=== PATIENT | male | born 1990 ===

== ENCOUNTER 2017-07-20 11:40 | Emergency (ER) | payer OTHER ==
[2017-07-20 11:41] VITALS: BMI 21.9
[2017-07-20 11:57] VITALS: TEMP 98
[2017-07-20 11:59] VITALS: RESP 16
[2017-07-20] MEDS ORDERED: Sodium Chloride 0.9% 250 ML IV ONE (12:13)
--- NOTE | 2017-07-20 12:35 | C.PDOC ---
History Of Present Illness Patient brought to ED from same day surgery for hypotension (BP 78/38), is scheduled to have removal of B/L nephrostomy tubes (placed 1 month ago at [place]) by Dr. Duarte Hoover. Patient has h/o Down syndrome, autism, HTN, ESRD on HD (T, T, Sa), last dialysis was thursday. Mother states he took his usual BP meds this mornig (Losartan and Carvedilol). She denies behavioral changes, fever, vomiting, diarrhea, cough, runny nose, sore throat, sick contacts. Time Seen by Provider: 07/20/17 12:04 Chief Complaint (Nursing): Medical Clearance History Per: Family (mother ) History/Exam Limitations: other (down syndrome, nonverbal) Current Symptoms Are (Timing): Better Past Medical History Reviewed: Historical Data, Nursing Documentation, Vital Signs Vital Signs: Last Vital Signs Temp 98.0 F 07/20/17 11:52 Pulse 88 07/20/17 18:14 Resp 16 07/20/17 18:14 BP 96/50 L 07/20/17 18:14 Pulse Ox 100 07/26/17 17:30 - Medical History PMH: HTN, Chronic Kidney Disease Other Surgeries: neprhrostromy tubes Family History: States: No Known Family Hx - Social History Hx Tobacco Use: No Hx Alcohol Use: No Hx Substance Use: No - Immunization History Hx Tetanus Toxoid Vaccination: Yes Hx Influenza Vaccination: Yes Hx Pneumococcal Vaccination: No Review Of Systems Except As Marked, All Systems Reviewed And Found Negative. Constitutional: Negative for: Fever, Chills Cardiovascular: Negative for: Chest Pain Respiratory: Negative for: Shortness of Breath Gastrointestinal: Negative for: Nausea, Vomiting, Abdominal Pain, Diarrhea Skin: Negative for: Rash Physical Exam - Physical Exam Appears: Well, Non-toxic, No Acute Distress Eye(s): bilateral: Normal Inspection Oral Mucosa: Moist Cardiovascular: Rhythm Regular Respiratory: Normal Breath Sounds, No Rales, No Rhonchi, No Wheezing Gastrointestinal/Abdominal: Normal Exam, Bowel Sounds, Soft, No Tenderness Back: No CVA Tenderness, Other (B/L nephrostomy tubes ) Neurological/Psych: Other (awake, alert) ED Course And Treatment - Laboratory Results Result Diagrams: 07/20/17 12:33 07/20/17 12:33 O2 Sat by Pulse Oximetry: 100 (RA) Pulse Ox Interpretation: Normal Progress Note: Blood work, UA ordered and reviewed. Patient given small IV NS bolus (250ml). UA (+) for UTI - IV rocephin given. Patient admitted to same day surgery under Dr. Duarte Hoover. 5:50pm- Dr. Hoover states OR was too busy and patient will not be going to OR today. Patient will be discharged home , continue Cipro he is already taking, and mother instructed to return tomorrow to for same day surgery. Reevaluation Time: 17:50 Reassessment Condition: Improved (Patient is awake, alert, appy & active. He has eaten a sandwich, vitals are improved. Mother is comfortable taking him home, and does not want him to be admitted overnight. She understands she should return to ED if he has any concerning symptoms.) Disposition Counseled Patient/Family Regarding: Studies Performed, Diagnosis, Need For Followup - Disposition Referrals: Tacos Hoover MD [Staff Provider] - Disposition: HOME/ ROUTINE Disposition Time: 17:50 Condition: STABLE Additional Instructions: CONTINUE ANTIBIOTICS INSTRUCTED RETURN TO SAME DAY SURGERY OR ER TOMORROW Instructions: Urinary Tract Infections in Adults Forms: [facility] (Burkinan) Print Language: BOTSWANAN - Clinical Impression Clinical Impression: UTI (urinary tract infection), Attention to nephrostomy
[2017-07-20 12:39] LABS: BASO # 0.1 K/uL (0.0-0.2); BASO % 0.9 % (0.0-2.0); EOS # 0.1 K/uL (0.0-0.7); EOS % 1.3 % (0.0-4.0); HEMOGLOBIN 11.2 g/dL (12.0-18.0); LYMPH # 1.8 K/uL (1.0-4.3); LYMPH % 21.1 % (20.0-40.0); MEAN CELL VOLUME 87.4 fL (80.0-94.0); MEAN CORPUSCULAR HEMOGLOBIN 29.2 pg (27.0-31.0); MEAN CORPUSCULAR HGB CONC 33.4 g/dL (33.0-37.0); MONO % 11.8 % (0.0-10.0); NEUT # 5.7 K/uL (1.8-7.0); NEUT % 64.9 % (50.0-75.0); RBC 3.83 Mil/uL (4.40-5.90); RED CELL DISTRIBUTION WIDTH 15.9 % (11.5-14.5); WHITE BLOOD COUNT 8.7 K/uL (4.8-10.8)
[2017-07-20 12:58] LABS: ALB/GLOB RATIO 0.8 (1.0-2.1); ALBUMIN 3.6 g/dL (3.5-5.0); CALCIUM 8.7 mg/dl (8.6-10.4); SQUAMOUS EPITHIAL < 1 /hpf (0-5); URINE AMORPHOUS SEDIMENT RARE /ul (<OCC); URINE BACTERIA MOD (<OCC); URINE BILIRUBIN NEGATIVE (NEGATIVE); URINE BLOOD 1+ (NEGATIVE); URINE CLARITY Hazy (Clear); URINE COLOR Yellow (YELLOW); URINE GLUCOSE (UA) NORMAL (Normal); URINE LEUKOCYTE ESTERASE 3+ Leu/uL (Negative); URINE NITRATE NEGATIVE (NEGATIVE); URINE PROTEIN 2+ mg/dL (NEGATIVE); URINE UROBILINOGEN NORMAL mg/dL (0.2-1.0)
[2017-07-20] MEDS ORDERED: cefTRIAXone IV 1 gm in Dextros 50 ML IV STA (13:18)
--- NOTE | 2017-07-20 14:18 | RAD ---
HISTORY: preop COMPARISON: Chest x-ray portion of obstructive series performed 04/28/16 TECHNIQUE: Chest, one view. FINDINGS: Right-sided dialysis catheter with distal tips at the cavoatrial junction/ right atrium. LUNGS: Right hilar prominence. Please note that chest x-ray has limited sensitivity for the detection of pulmonary masses. PLEURA: No significant pleural effusion identified. No definite pneumothorax . CARDIOVASCULAR: The cardiomediastinal silhouette appears within normal limits of size. OSSEOUS STRUCTURES: No acute osseous abnormality identified. VISUALIZED UPPER ABDOMEN: Unremarkable. OTHER FINDINGS: None. IMPRESSION: Right-sided dialysis catheter with distal tips at the cavoatrial junction/ right atrium. Right hilar prominence.
[2017-07-20] MEDS ORDERED: Sodium Chloride 0.9% 250 ML IV STA (15:51)
[2017-07-20 17:57] VITALS: O2SAT 100
[2017-07-20 18:14] VITALS: BP 96/50; PULSE 88
--- NOTE | 2017-07-21 12:21 | CARD ---
APPROVED REPORT EKG Measurement Heart [id number] <Conclusion> Normal sinus rhythm Normal ECG
== END 2017-07-20 18:31 | disposition home or self-care (01) ==
LOC: C.ER 11:40 → C.SDS 14:01
DX: Z43.6 Encounter for attention to other artificial openings of urinary tract (principal); N39.0 Urinary tract infection, site not specified; Q90.9 Down syndrome, unspecified; I12.0 Hypertensive chronic kidney disease with stage 5 chronic kidney disease or end stage renal disease; N18.6 End stage renal disease; Z99.2 Dependence on renal dialysis
CPT/HCPCS: 71045; 80053; 81001; 82948; 83690; 85025; 86850; 86900; 87040; 87086; 87181; 93005; 96361; 96365; 96366; 99285; J0696; J7040

== ENCOUNTER 2017-08-13 10:18 | Day surgery (SDC) | payer OTHER ==
[2017-08-13 11:42] LABS: CALCIUM 8.7 mg/dl (8.6-10.4)
[2017-08-13] MEDS ORDERED: Iohexol 240 (50 ml) ONE (12:24)
[2017-08-13] MEDS ORDERED: ceFAZolin IV 1 gm in Dextrose 1 GM/50 ML BAG IVPB ONE (12:27)
[2017-08-13] MEDS ORDERED: Propofol 10 mg/ml Inj (20 ML) ONE (12:42)
[2017-08-13] MEDS ORDERED: HYDROmorphone 0.5 mg/0.5 ml ISec IVP PRN (13:28)
[2017-08-13] MEDS ORDERED: Sodium Chloride 0.9% 500 ML IV ONE (13:30)
[2017-08-13 14:28] VITALS: BP 143/90; PULSE 88; RESP 18; TEMP 98; O2SAT 100
--- NOTE | 2017-08-13 17:15 | RAD ---
PROCEDURE: HISTORY: As Above COMPARISON: None TECHNIQUE: Total fluoroscopic time utilized during the procedure: 40.2 seconds. Total dose 0.05016 mGy cm squared FINDINGS: Submitted images from the current procedure: 18 Please refer to the physician's notes performing the procedure. IMPRESSION: Less than 1 hour fluoroscopic time utilized during performance of the procedure
--- NOTE | 2017-08-17 10:41 | RAD ---
HISTORY: Bilateral hydronephrosis, renal failure COMPARISON: No prior. FINDINGS: BOWEL: Normal. No obstruction. No free air. BONES: Normal. OTHER FINDINGS: Bilateral nephrostomy catheters identified. IMPRESSION: No acute findings related to/accounting for the clinical presentation.
--- NOTE | 2017-09-14 09:40 | HP ---
UROLOGY EMERGENCY ADMISSION REASON FOR ADMISSION: Hematuria, voiding dysfunction, renal failure, and the patient presented to the ER with a nonfunctioning system with hematuria. HISTORY OF PRESENT ILLNESS: The patient is a very pleasant gentleman who has been admitted emergently now for the emergency room, he presents. He is 27 years old. He has Down syndrome. His mother takes care of him. He has bilateral hydronephrosis. He has bilateral nephrostomy tubes. He has renal failure. He is on dialysis, and he is here now as an emergency. He presents to the emergency room with hematuria and a nonfunctioning catheter. See the plan listed below. We are going to change the catheter and also insert double J stents as we have been discussing throughout. The mother is extremely involved in his care, and she tries her best but is somewhat not perfectly compliant, presents now with an emergency, and therefore, we are going to insert double J stents with the plan of actually to remove the nephrostomy tubes. The history is as follows. The patient presented initially to [place] ago and then for various reasons socially mostly the patient was then followed up for a while. According to the mother, she had other emergencies that involved her and had gone to [place]. She then briefly went she then presented back to us in a while back. Then she presented back here with renal failure, hydronephrosis, bilateral nephrostomy tube inserted by . Since then we discussed the patient's various urology options. It has not really shown any improvement despite the fact that he had bilateral nephrostomy tubes that are draining well, and he has been getting renal failure and dialysis. With no major improvement but he is here still producing urine and so today, we are going to admit the patient to the emergency and change bilateral stents. With the plan for insertion of bilateral stents with the plan as stated to remove the nephrostomy tube, also we are going to recommend a cystostomy tube instead of a Nick catheter. PAST MEDICAL AND SURGICAL HISTORY: As listed above, other than remarkable from urology standpoint. REVIEW OF SYSTEMS: Listed above. SOCIAL HISTORY: Mother takes care of son with father as well. They do their best but it is a very difficult for them on a social note for care. PHYSICAL EXAMINATION: GENERAL: He appears younger than stated age. He is obviously in the bed, smiling, happy. VITAL SIGNS: His vital signs are noted. Remaining physical exam is otherwise unremarkable. Nephrostomy tubes are noted. DIAGNOSES: Hematuria, renal failure, bilateral nephrostomy tubes, dialysis patient with now nonfunctioning catheter. PLAN: Plan for him is to bring him once he is here as we are going to bring him as an emergency. We are going to bring to the OR, and we will put bilateral double stents in depending on the OR schedule. Further plan for eventually removing the nephrostomy tubes and eventually considering a cystostomy tube. Further plans to follow. Norm Hoover MD
--- NOTE | 2017-09-14 10:01 | OP ---
PROCEDURE DATE: 08/13/2017 UROLOGY EMERGENCY OPERATIVE REPORT PREOPERATIVE DIAGNOSES: Bilateral hydronephrosis, bilateral nephrostomy tubes, hematuria, renal failure, dialysis patient. POSTOPERATIVE DIAGNOSES: Bilateral hydronephrosis, bilateral nephrostomy tubes, hematuria, renal failure, dialysis patient. PROCEDURE: Cystoscopy, bilateral retrograde pyelograms, bilateral double J stent insertion and insertion of Nick catheter via the urethra. SURGEON: Norm Hoover MD COMPLICATIONS: There were no complications. INDICATIONS: See the history and physical for further details; but basically a very pleasant gentleman here for the above procedure. FINDINGS: Normal anterior urethra. No strictures and the verumontanum is minimally visually occlusive, in fact it is fairly open. Bilateral hydronephrosis is identified. Bilateral nephrostomy tubes kidneys. At the termination of the procedure, we had bilateral double J stents. There were no complications. INDICATIONS: See the history and physical for further details. In emergency, the patient presents to the ER with his mother. She does well of caregiving. DESCRIPTION OF PROCEDURE: After obtaining informed consent, the patient was placed on the table. Routine monitors were placed. Time-out was called and we confirmed the patient and positioning. I received consent from the mother. We introduced the cystoscope via urethra. There is no direct urethral valve or abnormality. The scope goes indirectly easily without complication. There was essentially normal urethra. We identified the ureteral orifices. Retrograde pyelograms were performed. We note the presence of bilateral nephrostomy tubes. We note the presence of these abnormally large kidneys. Wires passed up to the kidneys. Bilateral double J stents were inserted. We confirmed our position with fluoroscopic imaging. We inserted a new Nick catheter via the urethra. There were no complications. The patient tolerated the procedure well without complications. ADDENDUM: We are planning to remove the nephrostomy tubes. So far, he is not showing improvement in terms of renal function but he is producing urine output. We also discussed time is risky for infection, etc. I discussed with the mother about my plan eventually and her interest are to have a cystostomy tube. So our next step is to remove the bilateral nephrostomy tubes and also to insert the cystostomy tube at some point. I do want to mention that he is on Plavix, and so therefore, we are certainly not I will have to discuss the indications for his Plavix and what else we can do. Then further plans will follow. Norm Hoover MD
== END 2017-08-13 14:32 | disposition home or self-care (01) ==
LOC: C.SDS 10:18
PROVIDERS: ATTEND Urology
DX: N13.30 Unspecified hydronephrosis (principal); R33.9 Retention of urine, unspecified; Z93.6 Other artificial openings of urinary tract status; R31.9 Hematuria, unspecified; N19 Unspecified kidney failure; Z99.2 Dependence on renal dialysis; Q90.9 Down syndrome, unspecified; Z79.02 Long term (current) use of antithrombotics/antiplatelets
CPT/HCPCS: 36415; 52332; 74018; 80048; C1758; C1769; C2617; J0690; J7040; Q9966

== ENCOUNTER 2017-11-12 20:25 | Inpatient (IN) | payer OTHER ==
[2017-11-12 20:26] VITALS: BMI 20.2
--- NOTE | 2017-11-12 20:38 | C.PDOC ---
History Of Present Illness 27 year old male presents to the ER as a transfer from [facility] for admission. Patient with a Hx of ESRD on dialysis and done syndrome. Patient of Dr. Gonsales. History Per: Family History/Exam Limitations: no limitations Onset/Duration Of Symptoms: Hrs Current Symptoms Are (Timing): Still Present Recent travel outside of the [place]: No Past Medical History Reviewed: Historical Data, Nursing Documentation, Vital Signs Vital Signs: Last Vital Signs Temp 99.6 F 11/12/17 20:39 Pulse 104 H 11/12/17 20:39 Resp 20 11/12/17 20:39 BP 93/55 L 11/12/17 20:39 Pulse Ox 99 11/12/17 20:39 - Medical History PMH: HTN, Chronic Kidney Disease - [facility] (09/09/17) DRAINAGE OF LEFT KIDNEY PELVIS WITH DRAIN DEV, PERC APPROACH (06/04/17) DRAINAGE OF R KIDNEY PELVIS WITH DRAIN DEV, PERC APPROACH (06/04/17) FLUOROSCOPY OF RIGHT JUGULAR VEINS, GUIDANCE (06/04/17) INSERT INFUSION DEV IN R INT JUGULAR VEIN, PERC (06/04/17) INSERTION OF INFUSION DEVICE INTO LOWER VEIN, PERC APPROACH (06/04/17) ULTRASONOGRAPHY OF LEFT LOWER EXTREMITY VEINS, GUIDANCE (06/04/17) ULTRASONOGRAPHY OF RIGHT JUGULAR VEINS, GUIDANCE (06/04/17) Family History: States: Unknown Family Hx - Social History Hx Tobacco Use: No Hx Alcohol Use: No Hx Substance Use: No - Immunization History Hx Tetanus Toxoid Vaccination: Yes Hx Influenza Vaccination: Yes Hx Pneumococcal Vaccination: No Review Of Systems Review Of Systems: ROS cannot be obtained secondary to pt's inabilty to answer questions. Physical Exam - Physical Exam Appears: No Acute Distress Skin: Normal Color, Warm, Dry Head: Atraumatic, Normacephalic Eye(s): bilateral: Normal Inspection Oral Mucosa: Moist Chest: Symmetrical, No Tenderness Cardiovascular: Rhythm Regular Respiratory: Normal Breath Sounds, No Rales, No Rhonchi, No Wheezing Gastrointestinal/Abdominal: Soft, No Tenderness Neurological/Psych: Other (Heavy down's syndrome) Disposition Discussed With DrEnriqueta: Lambert Gonsales Counseled Patient/Family Regarding: Diagnosis - Disposition Disposition: HOSPITALIZED Disposition Time: 21:02 Condition: STABLE - POA Present On Arrival: None - Clinical Impression Clinical Impression: ESRD (end stage renal disease) on dialysis, UTI (urinary tract infection), Down syndrome - Scribe Statement The provider has reviewed the documentation as recorded by the Scribe Mateusz Membreno All medical record entries made by the Scribe were at my direction and personally dictated by me. I have reviewed the chart and agree that the record accurately reflects my personal performance of the history, physical exam, medical decision making, and the department course for this patient. I have also personally directed, reviewed, and agree with the discharge instructions and disposition.
[2017-11-12 22:03] LABS: INR 1.9; PROTHROMBIN TIME 20.3 SECONDS (9.7-12.2)
[2017-11-12] MEDS ORDERED: Vancomycin 1 gm/NS 200 ml 1 GM/200 ML BAG IVPB ONE ×2 (23:00→23:30)
[2017-11-13] MEDS: Multivitamin Vitamin B Complex (Nephro-Vite) Tab PO SCH (09:25)
[2017-11-13] MEDS ORDERED: FERROUS GLUCONATE 240 MG PO SCH (10:00)
--- NOTE | 2017-11-13 12:24 | CP.PCM.CON ---
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 neg for HIT/hypercoag work up Anemia, hx of MR vit D def with secondary hyperparathyroidism chronic systolic CHF with LVEF 35% Plan Plan for dialysis today as missed yesterday and next tomorrow as TTS. continue with nephrovite 1 tab/day continue with low dose coreg, not on RAAS chaitanya due to low BP urology and ID consult pt on systemic a/c with oral coumadin last Hb 13 hence not on [facility] outpt PTH and Phos under control Dose meds/antibiotics for dialysis status. Avoid fleets enema/magnesium based laxatives. Avoid nephrotoxins/NSAIDs Glycemic control Further work up/management as per primary team. Thanks for allowing me to participate in care of your patient. Will follow patient with you. Please call if any Qs. had d/w mother and team Dr Phillip Dixon Office: [phone] CC: unable to obtain reason for consult; ESRD HPI: Pt is a 27 M with MR and chronic obstructive uropathy and progressive CKD as a result of obstruction, now ESRD on HD (TTS) @ [place] unit, CHF, DVT came with cloudy urine output from nephrostomy tube along with feeling of sickness, nausea/vomitting and feeling cold and being treated for UTI renal consult for ESRD management ROS: pt unable to provide due to MR. overnight events noted. Physical Examination: seen on HD General Appearance: Comfortable, in no acute respiratory distress Vitals reviewed and noted as below Head; Atraumatic, normocephalic ENT: no ulcers no thrush. Tongue is midline. Oropharynx: no rash or ulcers. EYES: Pupils are equal, round and reactive to light accommodation. Eye muscles and extraocular movement intact. Sclera is anicteric. Neck; supple no lymphadenopathy, no thyromegaly or bruit Lungs: Normal respiratory rate/effort. Breath sounds bilateral equal and clear Heart: Normal rate. s1s2 normal. No rub or gallop. Extremities: no edema. No varicose veins Neurological: Patient is alert, awake, has severe MR, non communicative, non verbal Skin: Warm and dry. Normal turgor. No rash. Palpitation: Normal elasticity for age Abdomen: unable as pt not allowing Psych: no insight MSK: no joint tenderness or swelling. Digits and nails normal, no deformity : has nephrostomy tubes draining urine access: permacath Labs/imaging reviewed. Past medical history, past surgical history, family history, social history, allergy reviewed and noted as below Family hx: no hx of CKD. Rest non-contributory Past Patient History - Infectious Disease Hx of Infectious Diseases: None - Past Medical History & Family History Past Medical History?: Yes - Past Social History Smoking Status: Never Smoked - CARDIAC Hx Cardiac Disorders: Yes Hx Hypertension: Yes - PULMONARY Hx Respiratory Disorders: No - NEUROLOGICAL Hx 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) - HEENT Hx HEENT Problems: No - RENAL Hx Chronic Kidney Disease: Yes Date of Last Dialysis Treatment: 11/10/17 - ENDOCRINE/METABOLIC Hx Endocrine Disorders: No - HEMATOLOGICAL/ONCOLOGICAL Hx Blood Disorders: No - INTEGUMENTARY Hx Dermatological Problems: Yes Hx Eczema: Yes - MUSCULOSKELETAL/RHEUMATOLOGICAL Hx Musculoskeletal Disorders: No Hx Falls: Yes - GASTROINTESTINAL Hx Gastrointestinal Disorders: No - GENITOURINARY/GYNECOLOGICAL Hx Genitourinary Disorders: Yes Other/Comment: REYES - PSYCHIATRIC Hx Psychophysiologic Disorder: No Hx Substance Use: No - SURGICAL HISTORY Hx Surgeries: Yes Hx Vascular Access Device: Yes Other/Comment: CYSTOSCOPY. NEPHROSTOMY TUBES, ROWDY. - ANESTHESIA Hx Anesthesia: Yes Hx Anesthesia Reactions: No Hx Malignant Hyperthermia: No Meds Allergies/Adverse Reactions: Allergies Allergy/AdvReac Type Severity Reaction Status Date / Time No Known Allergies Allergy Verified 11/12/17 20:46 - Medications Medications: Current Medications Carvedilol (Coreg) 3.125 mg PO HS [place] Famotidine (Pepcid) 20 mg PO 0730 [facility] Ferrous Gluconate (Fergon) 324 mg PO TID [facility] Last Admin: 11/13/17 09:25 Dose: 324 mg Vitamin B Complex/Vit C/Folic Acid (Nephro-Robel) 1 tab PO DAILY [place] Last Admin: 11/13/17 09:25 Dose: 1 tab Warfarin Sodium (Coumadin) 4 mg PO 1800 ONE Stop: 11/13/17 18:01 Results - Vital Signs Recent Vital Signs: Last Vital Signs Temp 98 F 11/13/17 10:00 Pulse 67 11/13/17 11:00 Resp 16 11/13/17 11:00 BP 103/60 11/13/17 11:00 Pulse Ox 98 11/13/17 11:00 - Labs Labs: Laboratory Results - last 24 hr 11/12/17 11/13/17 21:50 07:45 PT 20.3 H INR 1.9 APTT 40 H
[2017-11-13 13:07] LABS: BASO # 0.1 K/uL (0.0-0.2); BASO % 0.9 % (0.0-2.0); EOS # 0.1 K/uL (0.0-0.7); EOS % 0.9 % (0.0-4.0); HEMOGLOBIN 12.3 g/dL (12.0-18.0); LYMPH # 1.5 K/uL (1.0-4.3); LYMPH % 19.4 % (20.0-40.0); MEAN CORPUSCULAR HEMOGLOBIN 30.8 pg (27.0-31.0); MEAN CORPUSCULAR HGB CONC 33.9 g/dL (33.0-37.0); MEAN PLATELET VOLUME 7.7 fL (7.2-11.7); MONO # 0.8 K/uL (0.0-0.8); MONO % 10.5 % (0.0-10.0); NEUT # 5.2 K/uL (1.8-7.0); NEUT % 68.3 % (50.0-75.0); NRBC % 0.1 % (0.0-2.0); RBC 3.97 Mil/uL (4.40-5.90); RED CELL DISTRIBUTION WIDTH 16.5 % (11.5-14.5); WHITE BLOOD COUNT 7.6 K/uL (4.8-10.8)
[2017-11-13 13:10] LABS: MEAN CELL VOLUME 90.9 fL (80.0-94.0)
[2017-11-13 13:28] LABS: ALB/GLOB RATIO 0.9 (1.0-2.1); ALBUMIN 4.2 g/dL (3.5-5.0); CALCIUM 8.4 mg/dl (8.6-10.4)
--- NOTE | 2017-11-13 16:10 | HP ---
HISTORY OF PRESENT ILLNESS: I saw him on 11/12/2017 at [facility] emergency room talking to the mother, but he needs dialysis. They were having a problem with dialysis at [facility], so he was transferred to [facility], where I saw him this morning, now he is being admitted to [facility]. He is a 27-year-old male, who has history of Down syndrome, who has UTIs, chronic Nick, end-stage renal disease on dialysis. He had vomiting, decreased appetite, the Nick bag was very cloudy, and he has done , so the mother brought him to [facility] where he usually goes, now he is transferred to [facility]. PAST MEDICAL HISTORY: End-stage renal disease on dialysis, Down syndrome, obstructive uropathy, chronic indwelling Nick, he has got hypertension, autism, nonverbal, he has dialysis Thursday, and Thursday, bilateral nephrostomy tubes, he has got eczema, cystoscopy. FAMILY HISTORY: Unknown family history. SOCIAL HISTORY: Never smoked. No alcohol, no drugs. ALLERGIES: NO KNOWN DRUG ALLERGIES. MEDICATIONS: He takes Coreg, Coumadin, Nephro-Robel and vitamins. REVIEW OF SYSTEMS: Presently, he is sitting up in bed with his mother in the room. He is smiling. He has no apparent distress at this time. He has Down syndrome. He is vomiting. Appetite changes. No acute changes in vision or hearing states his mother. No apparent chest pain or shortness of breath. He sits. No apparent rashes. He is alert and looking at me. PHYSICAL EXAMINATION: VITAL SIGNS: He has 98.8 temperature, 86 pulse, 18 respiratory rate, 105/55 blood pressure, and 100%O2 sat on room air. HEENT: His head is atraumatic and normocephalic. Extraocular muscles are intact. Pupils equal and reactive to light. Throat is moist. NECK: Supple. Thyroid midline. No palpable or appreciable lymphadenopathy. HEART: Regular rate. Normal S1 and S2. LUNGS: Decreased breath sounds bilaterally. Poor inspiration, but clear to auscultation. ABDOMEN: Soft and nontender. Positive bowel sounds. Bilateral nephrostomy tubes. CYLINDER INSPECTOR: GCS is 15. Cranial nerves II through XII are grossly intact. He is alert x1 maybe. SKIN: For the most part is normal. I do not see any rashes or ulcers appreciated. LABORATORY DATA: He had a lots of tests done. He has 1.9 INR. The CBC and chemistry is pending. All the other tests are pending. He is currently on Coreg, Coumadin, Nephro-Robel, Pepcid. He has had Rocephin. He has had vancomycin. He has lab pending this morning. ASSESSMENT AND PLAN: He has consults with his urologist, Dr. Hoover, his kidney doctor, Dr. Dixon and infectious disease, Dr. Ku. We will check his labs. When I get the okay, he could be discharged home. We will change it to tablets and discharge him. Will continue with the IV antibiotics at dialysis. Discussed with the mother at length and he is admitted to the [facility], [facility] with urinary tract infection, end-stage renal disease and obstructive nephropathy. Lambert Gonsales DO MTDD
--- NOTE | 2017-11-13 18:06 | PCM.URO ---
Urology Progress Note - Objective Lab Studies: Reviewed (gu dx; renal failure, hydro, retention, gu plans : smith to [place]) Lab Results Last 24 Hours: Laboratory Results - last 24 hr 11/12/17 11/13/17 11/13/17 21:50 07:45 12:56 WBC RBC Hgb Hct MCV MCH MCHC RDW Plt Count MPV Neut % (Auto) Lymph % (Auto) [place] % (Auto) Eos % (Auto) Baso % (Auto) Neut # (Auto) Lymph # (Auto) [place] # (Auto) Eos # (Auto) Baso # (Auto) PT 20.3 H INR 1.9 APTT 40 H Sodium 137 Potassium 3.5 L Chloride 94 L Carbon Dioxide 30 Anion Gap 17 BUN 34 H Creatinine 3.1 H Est GFR ( Amer) 30 Est GFR (Non-Af Amer) 25 Random Glucose 83 Calcium 8.4 L Total Bilirubin 0.5 AST 38 ALT 53 Alkaline Phosphatase 63 Total Protein 8.7 H Albumin 4.2 Globulin 4.5 H Albumin/Globulin Ratio 0.9 L 11/13/17 12:56 WBC 7.6 RBC 3.97 L Hgb 12.3 Hct 36.1 MCV 90.9 D MCH 30.8 MCHC 33.9 RDW 16.5 H Plt Count 230 MPV 7.7 Neut % (Auto) 68.3 Lymph % (Auto) 19.4 L [place] % (Auto) 10.5 H Eos % (Auto) 0.9 Baso % (Auto) 0.9 Neut # (Auto) 5.2 Lymph # (Auto) 1.5 [place] # (Auto) 0.8 Eos # (Auto) 0.1 Baso # (Auto) 0.1 PT INR APTT Sodium Potassium Chloride Carbon Dioxide Anion Gap BUN Creatinine Est GFR ( Amer) Est GFR (Non-Af Amer) Random Glucose Calcium Total Bilirubin AST ALT Alkaline Phosphatase Total Protein Albumin Globulin Albumin/Globulin Ratio Intake & Output: Intake & Output 11/12/17 11/13/17 11/13/17 18:59 06:59 18:59 Intake Total 600 Output Total 800 Balance -200 Weight 104 lb 42 lb 9.6 oz Intake: Intake, IV Amount 200 Right Forearm 200 Oral 400 Output: Urine 800 Urethral (Smith) 800 Other: Voiding Method Indwelling Catheter Vital Signs: Vital Signs - 24 hr 11/12/17 11/12/17 11/12/17 20:39 22:03 22:31 Temperature 99.6 F 98.6 F 98 F Pulse Rate 104 H 99 H 103 H Pulse Rate [ Apical] Respiratory 20 18 20 Rate Blood Pressure 93/55 L 106/62 92/64 L Blood Pressure [Right Arm] O2 Sat by Pulse 99 96 97 Oximetry 11/13/17 11/13/17 11/13/17 00:00 00:51 07:46 Temperature 97.1 F L 97.6 F Pulse Rate 74 88 Pulse Rate [ Apical] Respiratory 20 20 20 Rate Blood Pressure 91/61 L 97/60 L Blood Pressure [Right Arm] O2 Sat by Pulse 99 99 98 Oximetry 11/13/17 11/13/17 11/13/17 10:00 10:20 10:40 Temperature 97 F L Pulse Rate 68 Pulse Rate [ 68 70 80 Apical] Respiratory 15 16 16 Rate Blood Pressure 117/90 Blood Pressure 117/90 84/54 L 112/67 [Right Arm] O2 Sat by Pulse 99 99 99 Oximetry 11/13/17 11/13/17 11/13/17 11:00 11:30 12:00 Temperature Pulse Rate Pulse Rate [ 67 72 73 Apical] Respiratory 16 16 15 Rate Blood Pressure Blood Pressure 103/60 113/67 111/52 L [Right Arm] O2 Sat by Pulse 98 98 98 Oximetry 11/13/17 11/13/17 11/13/17 12:30 13:00 16:07 Temperature 97.8 F Pulse Rate 75 Pulse Rate [ 77 102 H Apical] Respiratory 15 15 20 Rate Blood Pressure 88/47 L Blood Pressure 119/86 121/83 [Right Arm] O2 Sat by Pulse 98 98 98 Oximetry
--- NOTE | 2017-11-13 18:32 | CP.PCM.CON ---
History of Present Illness - History of Present Illness History of Present Illness: 27 year old male presents to the ER as a transfer from [place] for admission. Patient with a Hx of ESRD on dialysis and done syndrome. Patient of Dr. Gonsales. 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 neg for HIT/hypercoag work up Anemia, hx of MR vit D def with secondary hyperparathyroidism chronic systolic CHF with LVEF 35% - Medical History PMH: HTN, Chronic Kidney Disease, Downs syndrome - [facility] Procedures (09/09/17) DRAINAGE OF LEFT KIDNEY PELVIS WITH DRAIN DEV, PERC APPROACH (06/04/17) DRAINAGE OF R KIDNEY PELVIS WITH DRAIN DEV, PERC APPROACH (06/04/17) FLUOROSCOPY OF RIGHT JUGULAR VEINS, GUIDANCE (06/04/17) INSERT INFUSION DEV IN R INT JUGULAR VEIN, PERC (06/04/17) INSERTION OF INFUSION DEVICE INTO LOWER VEIN, PERC APPROACH (06/04/17) ULTRASONOGRAPHY OF LEFT LOWER EXTREMITY VEINS, GUIDANCE (06/04/17) ULTRASONOGRAPHY OF RIGHT JUGULAR VEINS, GUIDANCE (06/04/17) Review of Systems - Review of Systems Systems not reviewed;Unavailable: Altered Mental Status All systems: reviewed and no additional remarkable complaints except - Constitutional Constitutional: As Per HPI - EENT Eyes: absent: As Per HPI, Blind Spots, Blurred Vision, Change in Vision, Decreased Night Vision, Diplopia, Discharge, Dry Eye, Exophthalmos, Floaters, Irritation, Itchy Eyes, Loss of Peripheral Vision, Pain, Photophobia, Requires Corrective Lenses, Sees Flashes, Spots in Vision, Tunnel Vision, Other Visual Disturbances, Loss of Vision, Other Ears: absent: As Per HPI, Decreased Hearing, Ear Discharge, Ear Pain, Tinnitus, Abnormal Hearing, Disequilibrium, Dizziness, Other Nose/Mouth/Throat: absent: As Per HPI, Epistaxis, Nasal Congestion, Nasal Discharge, Nasal Obstruction, Nasal Trauma, Nose Pain, Post Nasal Drip, Sinus Pain, Sinus Pressure, Bleeding Gums, Change in Voice, Dental Pain, Dry Mouth, Dysphagia, Halitosis, Hoarsness, Lip Swelling, Mouth Lesions, Mouth Pain, Odynophagia, Sore Throat, Throat Swelling, Tongue Swelling, Facial Pain, Neck Pain, Neck Mass, Other - Cardiovascular Cardiovascular: absent: As Per HPI, Acrocyanosis, Chest Pain, Chest Pain at Rest , Chest Pain with Activity, Claudication, Diaphoresis, Dyspnea, Dyspnea on Exertion, Edema, Irregular Heart Rhythm, Pain Radiating to Arm/Neck/Jaw, Leg Edema, Leg Ulcers, Lightheadedness, Orthopnea, Palpitations, Paroxysmal Nocturnal Dyspnea, Pedal Edema, Radiating Pain, Rapid Heart Rate, Slow Heart Rate, Syncope, Other - Respiratory Respiratory: absent: As Per HPI, Cough, Dyspnea, Hemoptysis, Dyspnea on Exertion , Wheezing, Snoring, Stridor, Pain on Inspiration, Chest Congestion, Excessive Mucous Production, Change in Mucous Color, Pain with Coughing, Other - Gastrointestinal Gastrointestinal: absent: As Per HPI, Abdominal Pain, Belching, Bloating, Change in Bowel Habits, Change in Stool Character, Coffee Ground Emesis, Constipation, Cramping, Diarrhea, Dyspepsia, Dysphagia, Early Satiety, Excessive Flatus, Fecal Incontinence, Heartburn, Hematemesis, Hematochezia, Loose Stools, Melena, Nausea, Odynophagia, Temesmus, Vomiting, Other - Genitourinary Genitourinary: As Per HPI - Musculoskeletal Musculoskeletal: absent: As Per HPI, Abnormal Gait, Arthralgias, Atrophy, Back Pain, Deformity, Joint Swelling, Limited Range of Motion, Loss of Height, Muscle Cramps, Muscle Weakness, Myalgias, Neck Pain, Numbness, Radiating Pain into Limb, Stiffness, Tingling, Other - Integumentary Integumentary: absent: As Per HPI, Acne, Alopecia, Bleeding Lesions, Change in Hair, Change in Nails, Change in Pigmentation, Changing Lesions, Dry Skin, Erythema, Furuncle, Hirsutism, Lesions, New Lesions, Non-Healing Lesions, Photosensitivity, Pruritus, Rash, Skin Pain, Skin Ulcer, Sores, Striae, Swelling , Unusual Bruising, Wounds, Jaundice, Other - Neurological Neurological: absent: As Per HPI, Abnormal Gait, Abnormal Hearing, Abnormal Movements, Abnormal Speech, Behavioral Changes, Burning Sensations, Confusion, Convulsions, Disequilibrium, Dizziness, Numbness, Focal Weakness, Frequent Falls , Headaches, Lack of Coordination, Loss of Vision, Memory Loss, Paresthesias, Radicular Pain, Restless Legs, Sensory Deficit, Syncope, Tingling, Tremor, Vertigo, Weakness, Other Visual Disturbances, Other - Psychiatric Psychiatric: absent: As Per HPI, Abnormal Sleep Pattern, Anhedonia, Anxiety, Auditory Hallucinations, Behavioral Changes, Change in Appetite, Change in Libido, Confusion, Depression, Difficulty Concentrating, Hallucinations, Homicidal Ideation, Hopelessness, Irritability, Memory Loss, Mood Swings, Panic Attacks, Paranoia, Suicidal Ideation, Visual Hallucinations, Tactile Hallucinations, Other - Endocrine Endocrine: absent: As Per HPI, Change in Body Appearance, Change in Libido, Cold Intolorance, Deepening of Voice, Excessive Sweating, Fatigue, Flushing, Heat Intolorance, Increase in Ring/Shoe/Hat Size, Palpitations, Polydipsia, Polyphagia, Polyuria, Other - Hematologic/Lymphatic Hematologic: absent: As Per HPI, Easy Bleeding, Easy Bruising, Lymphadenopathy, Other Past Patient History - Infectious Disease Hx of Infectious Diseases: None - Past Medical History & Family History Past Medical History?: Yes - Past Social History Smoking Status: Never Smoked - CARDIAC Hx Cardiac Disorders: Yes Hx Hypertension: Yes - PULMONARY Hx Respiratory Disorders: No - NEUROLOGICAL Hx 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) - HEENT Hx HEENT Problems: No - RENAL Hx Chronic Kidney Disease: Yes Date of Last Dialysis Treatment: 11/10/17 - ENDOCRINE/METABOLIC Hx Endocrine Disorders: No - HEMATOLOGICAL/ONCOLOGICAL Hx Blood Disorders: No - INTEGUMENTARY Hx Dermatological Problems: Yes Hx Eczema: Yes - MUSCULOSKELETAL/RHEUMATOLOGICAL Hx Musculoskeletal Disorders: No Hx Falls: Yes - GASTROINTESTINAL Hx Gastrointestinal Disorders: No - GENITOURINARY/GYNECOLOGICAL Hx Genitourinary Disorders: Yes Other/Comment: REYES - PSYCHIATRIC Hx Psychophysiologic Disorder: No Hx Substance Use: No - SURGICAL HISTORY Hx Surgeries: Yes Hx Vascular Access Device: Yes Other/Comment: CYSTOSCOPY. NEPHROSTOMY TUBES, ROWDY. - ANESTHESIA Hx Anesthesia: Yes Hx Anesthesia Reactions: No Hx Malignant Hyperthermia: No Meds Allergies/Adverse Reactions: Allergies Allergy/AdvReac Type Severity Reaction Status Date / Time No Known Allergies Allergy Verified 11/12/17 20:46 - Medications Medications: Current Medications Carvedilol (Coreg) 3.125 mg PO HS [place] Famotidine (Pepcid) 20 mg PO 0730 [facility] Ferrous Gluconate (Fergon) 324 mg PO TID [facility] Last Admin: 11/13/17 17:10 Dose: 324 mg Vitamin B Complex/Vit C/Folic Acid (Nephro-Robel) 1 tab PO DAILY [place] Last Admin: 11/13/17 09:25 Dose: 1 tab Physical Exam - Constitutional Appears: Non-toxic, Chronically Ill - Head Exam Head Exam: NORMOCEPHALIC - Eye Exam Eye Exam: PERRL - ENT Exam ENT Exam: Mucous Membranes Dry, Normal External Ear Exam - Neck Exam Neck exam: Negative for: Lymphadenopathy - Respiratory Exam Respiratory Exam: Decreased Breath Sounds - Cardiovascular Exam Cardiovascular Exam: REGULAR RHYTHM, +S1, +S2 - GI/Abdominal Exam GI & Abdominal Exam: Diminished Bowel Sounds, Soft. absent: Tenderness - Rectal Exam Rectal Exam: Deferred - Exam Exam: NORMAL INSPECTION - Extremities Exam Extremities exam: Negative for: pedal edema - Back Exam Back exam: absent: CVA tenderness (L), CVA tenderness (R), paraspinal tenderness - Neurological Exam Neurological exam: Alert, CN II-XII Intact, Oriented x3, Reflexes Normal - Psychiatric Exam Psychiatric exam: Normal Mood Results - Vital Signs Recent Vital Signs: Last Vital Signs Temp 97.8 F 11/13/17 16:07 Pulse 75 11/13/17 16:07 Resp 20 11/13/17 16:07 BP 88/47 L 11/13/17 16:07 Pulse Ox 98 11/13/17 16:07 - Labs Result Diagrams: 11/13/17 12:56 11/13/17 12:56 Labs: Laboratory Results - last 24 hr 11/12/17 11/13/17 11/13/17 21:50 07:45 12:56 WBC RBC Hgb Hct MCV MCH MCHC RDW Plt Count MPV Neut % (Auto) Lymph % (Auto) [place] % (Auto) Eos % (Auto) Baso % (Auto) Neut # (Auto) Lymph # (Auto) [place] # (Auto) Eos # (Auto) Baso # (Auto) PT 20.3 H INR 1.9 APTT 40 H Sodium 137 Potassium 3.5 L Chloride 94 L Carbon Dioxide 30 Anion Gap 17 BUN 34 H Creatinine 3.1 H Est GFR ( Amer) 30 Est GFR (Non-Af Amer) 25 Random Glucose 83 Calcium 8.4 L Total Bilirubin 0.5 AST 38 ALT 53 Alkaline Phosphatase 63 Total Protein 8.7 H Albumin 4.2 Globulin 4.5 H Albumin/Globulin Ratio 0.9 L 11/13/17 12:56 WBC 7.6 RBC 3.97 L Hgb 12.3 Hct 36.1 MCV 90.9 D MCH 30.8 MCHC 33.9 RDW 16.5 H Plt Count 230 MPV 7.7 Neut % (Auto) 68.3 Lymph % (Auto) 19.4 L [place] % (Auto) 10.5 H Eos % (Auto) 0.9 Baso % (Auto) 0.9 Neut # (Auto) 5.2 Lymph # (Auto) 1.5 [place] # (Auto) 0.8 Eos # (Auto) 0.1 Baso # (Auto) 0.1 PT INR APTT Sodium Potassium Chloride Carbon Dioxide Anion Gap BUN Creatinine Est GFR ( Amer) Est GFR (Non-Af Amer) Random Glucose Calcium Total Bilirubin AST ALT Alkaline Phosphatase Total Protein Albumin Globulin Albumin/Globulin Ratio Assessment & Plan (1) Down syndrome Status: Acute (2) UTI (urinary tract infection) Status: Acute (3) Acute kidney injury Status: Acute (4) Attention to nephrostomy Status: Acute - Assessment and Plan (Free Text) Assessment: await cultures cont iv antibiotics
[2017-11-13] MEDS: Cefepime IV 1 gm in Dextrose 1 GM/50 ML BAG IVPB SCH (21:12)
[2017-11-14 07:17] LABS: INR 2.2; PROTHROMBIN TIME 23.8 SECONDS (9.7-12.2)
[2017-11-14 07:19] LABS: HEMOGLOBIN 11.3 g/dL (12.0-18.0); MEAN CELL VOLUME 91.1 fL (80.0-94.0); MEAN CORPUSCULAR HEMOGLOBIN 31.2 pg (27.0-31.0); MEAN CORPUSCULAR HGB CONC 34.3 g/dL (33.0-37.0); MEAN PLATELET VOLUME 7.4 fL (7.2-11.7); RBC 3.63 Mil/uL (4.40-5.90); RED CELL DISTRIBUTION WIDTH 16.5 % (11.5-14.5); WHITE BLOOD COUNT 7.3 K/uL (4.8-10.8)
[2017-11-14 07:46] LABS: ALB/GLOB RATIO 0.9 (1.0-2.1); ALBUMIN 3.8 g/dL (3.5-5.0); CALCIUM 8.1 mg/dl (8.6-10.4)
--- NOTE | 2017-11-14 09:12 | CP.PCM.PN ---
Subjective - Date & Time of Evaluation Date of Evaluation: 11/14/17 Time of Evaluation: 09:12 - Subjective Subjective: Nephrology Consultation Note: Assessment: stable UTI ESRD on HD via permacath (TTS) hx of b/l massive hydronephrosis and loss of renal cortex s/p b/l nephrostomy left femoral DVT. neg for HIT/hypercoag work up Anemia, hx of MR vit D def with secondary hyperparathyroidism chronic systolic CHF with LVEF 35% Plan Plan for dialysis today as TTS. continue with nephrovite 1 tab/day continue with low dose coreg, not on RAAS chaitanya due to low BP urology and ID consult pt on systemic a/c with oral coumadin last Hb 13 hence not on WILBER outpt PTH and Phos under control Dose meds/antibiotics for dialysis status. Avoid fleets enema/magnesium based laxatives. Avoid nephrotoxins/NSAIDs Glycemic control Further work up/management as per primary team. Thanks for allowing me to participate in care of your patient. Will follow patient with you. Please call if any Qs. 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 overnight events noted. per mother, pt is doing better, happy and eating well Physical Examination: General Appearance: Comfortable, in no acute respiratory distress Vitals reviewed and noted as below Head; Atraumatic, normocephalic ENT: no ulcers no thrush. Tongue is midline. Oropharynx: no rash or ulcers. EYES: Pupils are equal, round and reactive to light accommodation. Eye muscles and extraocular movement intact. Sclera is anicteric. Neck; supple no lymphadenopathy, no thyromegaly or bruit Lungs: Normal respiratory rate/effort. Breath sounds bilateral equal and clear Heart: Normal rate. s1s2 normal. No rub or gallop. Extremities: no edema. No varicose veins Neurological: Patient is alert, awake, has severe MR, non communicative, non verbal Skin: Warm and dry. Normal turgor. No rash. Palpitation: Normal elasticity for age Abdomen: unable as pt not allowing Psych: no insight MSK: no joint tenderness or swelling. Digits and nails normal, no deformity : has nephrostomy tubes draining urine access: permacath Labs/imaging reviewed. Past medical history, past surgical history, family history, social history, allergy reviewed and noted as below Family hx: no hx of CKD. Rest non-contributory Objective - Vital Signs/Intake and Output Vital Signs (last 24 hours): Temp Pulse Resp BP Pulse Ox 97.4 F L 73 18 110/58 L 100 11/14/17 07:09 11/14/17 07:09 11/14/17 07:09 11/14/17 07:09 11/14/17 07:09 Intake and Output: 11/14/17 11/14/17 06:59 18:59 Intake Total 250 Balance 250 - Medications Medications: Current Medications Carvedilol (Coreg) 3.125 mg PO HS [facility] Last Admin: 11/13/17 21:13 Dose: 3.125 mg Famotidine (Pepcid) 20 mg PO 0730 [facility] Last Admin: 11/14/17 07:56 Dose: 20 mg Ferrous Gluconate (Fergon) 324 mg PO TID [facility] Last Admin: 11/13/17 17:10 Dose: 324 mg Cefepime HCl (Maxipime Iv 1 Gm Premix) 1 gm in 50 mls @ 100 mls/hr IVPB Q24H [place] PRN Reason: Protocol Last Admin: 11/13/17 21:12 Dose: 100 mls/hr Vitamin B Complex/Vit C/Folic Acid (Nephro-Robel) 1 tab PO DAILY [facility] Last Admin: 11/13/17 09:25 Dose: 1 tab Warfarin Sodium (Coumadin) 4 mg PO 1800 [facility] Stop: 11/14/17 18:01 - Labs Labs: 11/14/17 07:07 11/14/17 07:07 PT 23.8 SECONDS (9.7-12.2) H 11/14/17 07:07 INR 2.2 11/14/17 07:07 APTT 40 SECONDS (21-34) H 11/13/17 07:45
[2017-11-14] MEDS: Multivitamin Vitamin B Complex (Nephro-Vite) Tab PO SCH (10:03)
--- NOTE | 2017-11-14 13:21 | PN ---
DATE: 11/14/2017 SUBJECTIVE: I saw him sitting up in bed. He is looking at me. He is nonverbal. His mother is in the chair next to the bed. He is very comfortable. He had dialysis yesterday. MEDICATIONS: He is on cefepime, Coreg, Coumadin, Fergon, Nephro-Robel, Pepcid, IV vancomycin. PHYSICAL EXAMINATION: VITAL SIGNS: Temp 97.4, 73 pulse, 110/58 blood pressure, his blood pressure goes as low as 86/44 that was after dialysis. I am going to take him off fluid, but he is better now, 18 respiratory rate, 100% O2 sat on room air. GENERAL: Clinically to look at him he is very calm, no acute complaints. HEENT: His head is atraumatic, normocephalic. HEART: Regular rate. LUNGS: Clear to auscultation. ABDOMEN: Soft. EXTREMITIES: No edema. NEUROLOGIC: He is nonverbal, smiled at me him. LABORATORY DATA: He has 135 sodium, potassium is 3.7, BUN is 56, creatinine 5.5. I understand the next dialysis is Thursday, he might need it earlier though. GFR is down to 13, sugar is 93, calcium is 8.1, total bili is 0.5, AST is 43, ALT is 54, alk phos 56, total protein 7.8. White count 7.3, hemoglobin 11.3, hematocrit 33, platelets 204, INR is good at 2.2. ASSESSMENT AND PLAN: We will continue with the same, Coumadin 4 mg a day, which is now not on JUL for whatever reason. He is here for an infection and we will check his labs tomorrow. Discussed with the at length. I also discussed this with the renal doctor. As soon as we know what antibiotic he will be on for a period of time, we would probably switch him to home antibiotics on outpatient dialysis. Also Urology is supposed to change his tubes, catheters and hopefully he will do very well. Lambert Gonsales DO [facility]
[2017-11-14] MEDS: Cefepime IV 1 gm in Dextrose 1 GM/50 ML BAG IVPB SCH (19:27)
[2017-11-15 07:49] LABS: HEMOGLOBIN 11.4 g/dL (12.0-18.0); MEAN CELL VOLUME 91.4 fL (80.0-94.0); MEAN CORPUSCULAR HEMOGLOBIN 30.9 pg (27.0-31.0); MEAN CORPUSCULAR HGB CONC 33.8 g/dL (33.0-37.0); MEAN PLATELET VOLUME 7.3 fL (7.2-11.7); RBC 3.7 Mil/uL (4.40-5.90); RED CELL DISTRIBUTION WIDTH 16.5 % (11.5-14.5); WHITE BLOOD COUNT 5.2 K/uL (4.8-10.8)
[2017-11-15 07:51] LABS: INR 1.8; PROTHROMBIN TIME 20.1 SECONDS (9.7-12.2)
[2017-11-15 08:11] LABS: ALBUMIN 3.8 g/dL (3.5-5.0)
[2017-11-15] MEDS: Multivitamin Vitamin B Complex (Nephro-Vite) Tab PO SCH (09:23)
--- NOTE | 2017-11-15 14:27 | CP.PCM.PN ---
Subjective - Date & Time of Evaluation Date of Evaluation: 11/15/17 Time of Evaluation: 14:26 - Subjective Subjective: Nephrology Consultation Note: Assessment: stable UTI ESRD on HD via permacath (TTS) hx of b/l massive hydronephrosis and loss of renal cortex s/p b/l nephrostomy left femoral DVT. neg for HIT/hypercoag work up Anemia, hx of MR vit D def with secondary hyperparathyroidism chronic systolic CHF with LVEF 35% Plan Plan for dialysis thursday as TTS. continue with nephrovite 1 tab/day continue with low dose coreg, not on RAAS chaitanya due to low BP urology and ID consult pt on systemic a/c with oral coumadin last Hb 13 hence not on WILBER outpt PTH and Phos under control Dose meds/antibiotics for dialysis status. Avoid fleets enema/magnesium based laxatives. Avoid nephrotoxins/NSAIDs Glycemic control Further work up/management as per primary team. Thanks for allowing me to participate in care of your patient. Will follow patient with you. Please call if any Qs. 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 overnight events noted. per mother, pt is doing better, happy and eating well Physical Examination: General Appearance: Comfortable, in no acute respiratory distress Vitals reviewed and noted as below Head; Atraumatic, normocephalic ENT: no ulcers no thrush. Tongue is midline. Oropharynx: no rash or ulcers. EYES: Pupils are equal, round and reactive to light accommodation. Eye muscles and extraocular movement intact. Sclera is anicteric. Neck; supple no lymphadenopathy, no thyromegaly or bruit Lungs: Normal respiratory rate/effort. Breath sounds bilateral equal and clear Heart: Normal rate. s1s2 normal. No rub or gallop. Extremities: no edema. No varicose veins Neurological: Patient is alert, awake, has severe MR, non communicative, non verbal Skin: Warm and dry. Normal turgor. No rash. Palpitation: Normal elasticity for age Abdomen: unable as pt not allowing Psych: no insight MSK: no joint tenderness or swelling. Digits and nails normal, no deformity : has nephrostomy tubes draining urine access: permacath Labs/imaging reviewed. Past medical history, past surgical history, family history, social history, allergy reviewed and noted as below Family hx: no hx of CKD. Rest non-contributory Objective - Vital Signs/Intake and Output Vital Signs (last 24 hours): Temp Pulse Resp BP Pulse Ox 97.6 F 90 18 98/64 L 96 11/15/17 08:00 11/15/17 08:00 11/15/17 08:00 11/15/17 08:00 11/15/17 08:00 Intake and Output: 11/15/17 11/15/17 06:59 18:59 Intake Total 420 Output Total 350 Balance 70 - Medications Medications: Current Medications Carvedilol (Coreg) 3.125 mg PO HS [facility] Last Admin: 11/14/17 21:27 Dose: Not Given Famotidine (Pepcid) 20 mg PO 0730 [facility] Last Admin: 11/15/17 07:54 Dose: 20 mg Ferrous Gluconate (Fergon) 324 mg PO TID [facility] Last Admin: 11/15/17 13:23 Dose: 324 mg Cefepime HCl (Maxipime Iv 1 Gm Premix) 1 gm in 50 mls @ 100 mls/hr IVPB Q24H [facility] PRN Reason: Protocol Last Admin: 11/14/17 19:27 Dose: 100 mls/hr Vitamin B Complex/Vit C/Folic Acid (Nephro-Robel) 1 tab PO DAILY [facility] Last Admin: 11/15/17 09:23 Dose: 1 tab Warfarin Sodium (Coumadin) 2 mg PO ONCE ONE Stop: 11/15/17 18:01 Warfarin Sodium (Coumadin) 2.5 mg PO ONCE ONE Stop: 11/15/17 18:01 - Labs Labs: 11/15/17 07:39 11/15/17 07:39 PT 20.1 SECONDS (9.7-12.2) H 11/15/17 07:39 INR 1.8 11/15/17 07:39 APTT 40 SECONDS (21-34) H 11/13/17 07:45
--- NOTE | 2017-11-15 14:51 | CP.PCM.PN ---
Subjective - Date & Time of Evaluation Date of Evaluation: 11/15/17 Time of Evaluation: 08:00 - Subjective Subjective: Patient with a Hx of ESRD on dialysis and Downs syndrome. On IV antibiotics for Pseudomonas? await cultures / sensitivities Objective - Vital Signs/Intake and Output Vital Signs (last 24 hours): Temp Pulse Resp BP Pulse Ox 97.6 F 90 18 98/64 L 96 11/15/17 08:00 11/15/17 08:00 11/15/17 08:00 11/15/17 08:00 11/15/17 08:00 Intake and Output: 11/15/17 11/15/17 06:59 18:59 Intake Total 420 400 Output Total 350 250 Balance 70 150 - Medications Medications: Current Medications Carvedilol (Coreg) 3.125 mg PO HS [facility] Last Admin: 11/14/17 21:27 Dose: Not Given Famotidine (Pepcid) 20 mg PO 0730 [facility] Last Admin: 11/15/17 07:54 Dose: 20 mg Ferrous Gluconate (Fergon) 324 mg PO TID [facility] Last Admin: 11/15/17 13:23 Dose: 324 mg Cefepime HCl (Maxipime Iv 1 Gm Premix) 1 gm in 50 mls @ 100 mls/hr IVPB Q24H [facility] PRN Reason: Protocol Last Admin: 11/14/17 19:27 Dose: 100 mls/hr Vitamin B Complex/Vit C/Folic Acid (Nephro-Robel) 1 tab PO DAILY [facility] Last Admin: 11/15/17 09:23 Dose: 1 tab Warfarin Sodium (Coumadin) 2 mg PO ONCE ONE Stop: 11/15/17 18:01 Warfarin Sodium (Coumadin) 2.5 mg PO ONCE ONE Stop: 11/15/17 18:01 - Labs Labs: 11/15/17 07:39 11/15/17 07:39 PT 20.1 SECONDS (9.7-12.2) H 11/15/17 07:39 INR 1.8 11/15/17 07:39 APTT 40 SECONDS (21-34) H 11/13/17 07:45 - Constitutional Appears: Non-toxic, Chronically Ill - Head Exam Head Exam: NORMOCEPHALIC - Eye Exam Eye Exam: PERRL - ENT Exam ENT Exam: Mucous Membranes Dry - Neck Exam Neck Exam: absent: Lymphadenopathy - Respiratory Exam Respiratory Exam: Decreased Breath Sounds - Cardiovascular Exam Cardiovascular Exam: REGULAR RHYTHM - GI/Abdominal Exam GI & Abdominal Exam: Distended, Soft Assessment and Plan (1) Down syndrome Status: Acute (2) UTI (urinary tract infection) Status: Acute (3) Acute kidney injury Status: Acute (4) Attention to nephrostomy Status: Acute - Assessment and Plan (Free Text) Assessment: cont iv rx for chronic pyelo await cultures
[2017-11-15] MEDS: Cefepime IV 1 gm in Dextrose 1 GM/50 ML BAG IVPB SCH (19:53)
[2017-11-16 07:16] LABS: INR 1.8; PROTHROMBIN TIME 19.8 SECONDS (9.7-12.2)
[2017-11-16 07:18] LABS: HEMOGLOBIN 11.7 g/dL (12.0-18.0); MEAN CELL VOLUME 91.4 fL (80.0-94.0); MEAN CORPUSCULAR HEMOGLOBIN 30.5 pg (27.0-31.0); MEAN CORPUSCULAR HGB CONC 33.3 g/dL (33.0-37.0); MEAN PLATELET VOLUME 7.8 fL (7.2-11.7); RBC 3.83 Mil/uL (4.40-5.90); RED CELL DISTRIBUTION WIDTH 16.2 % (11.5-14.5); WHITE BLOOD COUNT 4.6 K/uL (4.8-10.8)
[2017-11-16 07:55] LABS: ALBUMIN 3.8 g/dL (3.5-5.0); CALCIUM 8.2 mg/dl (8.6-10.4)
--- NOTE | 2017-11-16 08:34 | PN ---
DATE: 11/15/2017 SUBJECTIVE: I saw him in his room sitting in bed. He is smiling. Seems happy and content. His mother is with him. He is sitting up in bed. He is comfortable. He is going to get ready to eat lunch. He is in good spirits. PHYSICAL EXAMINATION: VITAL SIGNS: Temperature 97.6, 90 pulse, 98/64 blood pressure, 18 respiratory rate, 96% O2 sat on room air. HEENT: His head is atraumatic, normocephalic. HEART: Regular rate. LUNGS: Clear to auscultation. ABDOMEN: Soft. EXTREMITIES: No edema. MEDICATIONS: He is currently on Coreg, Coumadin, Fergon, Maxipime, Nephro-Robel, and Pepcid. LABORATORY DATA: He has 139 sodium, potassium 3.7, BUN 41, creatinine 4.7, sugar is 90, calcium is 8, total bili is 0.6, AST is 47, ALT 51, alk phos 64, total protein is 7.7. White count is 5.2, hemoglobin 11.4, hematocrit 33.8, and platelets 199. INR is 1.8. Increased his Coumadin to 4.5, we will check it tomorrow. ASSESSMENT AND PLAN: Discussed with the mother and the nurse about his plan. He is getting intravenous antibiotics as per Infectious Disease. I am hoping that after Thursday dialysis, he can be discharged to home for further intravenous antibiotics and the dialysis. He is definitely stable. We will continue with aggressive treatment and care. He is here for sepsis and end-stage renal failure. Lambert Gonsales DO MTDJose Luis
[2017-11-16] MEDS: Multivitamin Vitamin B Complex (Nephro-Vite) Tab PO SCH (09:57)
--- NOTE | 2017-11-16 12:00 | CP.PCM.PN ---
Subjective - Date & Time of Evaluation Date of Evaluation: 11/16/17 Time of Evaluation: 09:00 - Subjective Subjective: afeb on IV rx to cont same for 14 days as out pt Objective - Vital Signs/Intake and Output Vital Signs (last 24 hours): Temp Pulse Resp BP Pulse Ox 97.4 F L 86 20 100/68 97 11/16/17 08:02 11/16/17 08:02 11/16/17 08:02 11/16/17 08:02 11/16/17 08:02 Intake and Output: 11/16/17 11/16/17 06:59 18:59 Intake Total 400 120 Output Total 350 400 Balance 50 -280 - Medications Medications: Current Medications Carvedilol (Coreg) 3.125 mg PO HS [facility] Last Admin: 11/15/17 21:49 Dose: Not Given Famotidine (Pepcid) 20 mg PO 0730 [facility] Last Admin: 11/16/17 07:18 Dose: 20 mg Ferrous Gluconate (Fergon) 324 mg PO TID [facility] Last Admin: 11/16/17 09:57 Dose: 324 mg Cefepime HCl (Maxipime Iv 1 Gm Premix) 1 gm in 50 mls @ 100 mls/hr IVPB Q24H [facility] PRN Reason: Protocol Last Admin: 11/15/17 19:53 Dose: 100 mls/hr Vitamin B Complex/Vit C/Folic Acid (Nephro-Robel) 1 tab PO DAILY [facility] Last Admin: 11/16/17 09:57 Dose: 1 tab - Labs Labs: 11/16/17 07:05 11/16/17 07:05 PT 19.8 SECONDS (9.7-12.2) H 11/16/17 07:05 INR 1.8 11/16/17 07:05 APTT 40 SECONDS (21-34) H 11/13/17 07:45 - Constitutional Appears: Non-toxic, Chronically Ill - Head Exam Head Exam: NORMOCEPHALIC - Eye Exam Eye Exam: PERRL - ENT Exam ENT Exam: Mucous Membranes Dry - Neck Exam Neck Exam: absent: Lymphadenopathy - Respiratory Exam Respiratory Exam: Decreased Breath Sounds - Cardiovascular Exam Cardiovascular Exam: REGULAR RHYTHM - GI/Abdominal Exam GI & Abdominal Exam: Distended Assessment and Plan (1) Down syndrome Status: Acute (2) UTI (urinary tract infection) Status: Acute (3) Acute kidney injury Status: Acute (4) Attention to nephrostomy Status: Acute
--- NOTE | 2017-11-16 12:29 | PN ---
DATE: 11/16/2017 SUBJECTIVE: He is sitting up in bed. He slept fairly well. Mother is also in He is on cefepime, Coreg, Coumadin, Fergon, Nephro-Robel, Pepcid, and vancomycin as one dose. He is in no acute distress. He will go for dialysis tomorrow. He has been seen by Renal and Infectious Disease. PHYSICAL EXAMINATION: VITAL SIGNS: Temperature 97.9, pulse 80, blood pressure 90/51, respiratory rate 16, O2 sat 99% on room air. HEENT: His head is atraumatic, normocephalic. HEART: Regular rate. LUNGS: Decreased breath sounds but clear. ABDOMEN: Soft. EXTREMITIES: No edema. ASSESSMENT AND PLAN: He had 1.8 INR yesterday. Increased his Coumadin today. We are also waiting for the [facility] this morning. My plan is to discharge him tomorrow after the hemodialysis. We will discuss with Infectious Disease the length of time he needs to be on IV antibiotics. Get it at dialysis. We will continue progressive treatment and care. Here for chronic pyelonephritis, urinary tract infection, with Down syndrome. Discussed with the mother at length. Lambert Gonsales DO MTDD
--- NOTE | 2017-11-16 12:34 | PCM.URO ---
Urology Progress Note - General General: No Complaints, Tolerating Diet - Subjective Abdominal Pain: No Flank Pain: No Nausea: No Vomiting: No Voiding Well: No Dysuria: No Hematuria: No Dsypnea: No Chest Pain: No Fever & Chills: No - Objective Lab Studies: Reviewed (azotemia. creat=6.3) Lab Results Last 24 Hours: Laboratory Results - last 24 hr 11/16/17 11/16/17 11/16/17 07:05 07:05 07:05 WBC 4.6 L RBC 3.83 L Hgb 11.7 L Hct 35.0 MCV 91.4 MCH 30.5 MCHC 33.3 RDW 16.2 H Plt Count 195 MPV 7.8 PT 19.8 H INR 1.8 Sodium 141 Potassium 3.8 Chloride 101 Carbon Dioxide 26 Anion Gap 19 BUN 61 H Creatinine 6.3 H Est GFR ( Amer) 13 Est GFR (Non-Af Amer) 11 Random Glucose 86 Calcium 8.2 L Total Bilirubin 0.5 AST 33 ALT 43 Alkaline Phosphatase 53 Total Protein 7.6 Albumin 3.8 Globulin 3.8 Albumin/Globulin Ratio 1.0 Intake & Output: Intake & Output 11/15/17 11/16/17 11/16/17 18:59 06:59 18:59 Intake Total 400 400 120 Output Total 250 350 400 Balance 150 50 -280 Intake: Intake, IV Amount 100 Right Forearm 100 Oral 400 300 120 Output: Urine 250 350 400 Urethral (Smith) 250 350 400 Other: # Bowel Movements 2 1 0 Vital Signs: Vital Signs - 24 hr 11/15/17 11/15/17 11/16/17 15:00 21:49 00:08 Temperature 97.3 F L 97.9 F Pulse Rate 70 77 80 Respiratory 20 16 Rate Blood Pressure 94/59 L 99/59 L 90/51 L O2 Sat by Pulse 98 99 Oximetry 11/16/17 08:02 Temperature 97.4 F L Pulse Rate 86 Respiratory 20 Rate Blood Pressure 100/68 O2 Sat by Pulse 97 Oximetry - Physical Exam Abdominal Exam: Soft, Non-Tender, Non-Distended Back: No CVA Tenderness Genitalia: Without Inflammation Urinary Catheter Draining Well: Yes Urine Color: Clear, Yellow - Male Phallus: Normal - Plan Catheter Care: Yes Intake & Output: Yes Additional Information: IMP: hydronephrosis. Hx of ureteral stent. indwellig smith catheter. Down's Syndrome. Mental retardation. P/Rec: Catheter in place. On cefepime. U/A, culture. Discussed w pt's mother - Date & Time of Note Date: 11/16/17 Time: 12:35
--- NOTE | 2017-11-16 13:14 | CP.PCM.PN ---
Subjective - Date & Time of Evaluation Date of Evaluation: 11/16/17 Time of Evaluation: 13:13 - Subjective Subjective: Nephrology Consultation Note: Assessment: stable UTI with GNR ESRD on HD via permacath (TTS) hx of b/l massive hydronephrosis and loss of renal cortex s/p b/l nephrostomy left femoral DVT. neg for HIT/hypercoag work up Anemia, hx of MR vit D def with secondary hyperparathyroidism chronic systolic CHF with LVEF 35% Plan Plan for dialysis thursday as TTS. continue with nephrovite 1 tab/day continue with low dose coreg, not on RAAS chaitanya due to low BP urology and ID consult pt on systemic a/c with oral coumadin last Hb 11.7 hence not on WILBER outpt PTH and Phos under control Dose meds/antibiotics for dialysis status. Avoid fleets enema/magnesium based laxatives. Avoid nephrotoxins/NSAIDs Glycemic control Further work up/management as per primary team. Thanks for allowing me to participate in care of your patient. Will follow patient with you. Please call if any Qs. had d/w mother and team Dr Phillip Dixon Office: [phone] CC: unable to obtain reason for consult; ESRD HPI: Pt is a 27 M with MR and chronic obstructive uropathy and progressive CKD as a result of obstruction, now ESRD on HD (TTS) @ [place] unit, CHF, DVT came with cloudy urine output from nephrostomy tube along with feeling of sickness, nausea/vomitting and feeling cold and being treated for UTI renal consult for ESRD management ROS: pt unable to provide due to MR. overnight events noted. per mother, pt is doing better, happy and eating well Physical Examination: General Appearance: Comfortable, in no acute respiratory distress Vitals reviewed and noted as below Head; Atraumatic, normocephalic ENT: no ulcers no thrush. Tongue is midline. Oropharynx: no rash or ulcers. EYES: Pupils are equal, round and reactive to light accommodation. Eye muscles and extraocular movement intact. Sclera is anicteric. Neck; supple no lymphadenopathy, no thyromegaly or bruit Lungs: Normal respiratory rate/effort. Breath sounds bilateral equal and clear Heart: Normal rate. s1s2 normal. No rub or gallop. Extremities: no edema. No varicose veins Neurological: Patient is alert, awake, has severe MR, non communicative, non verbal Skin: Warm and dry. Normal turgor. No rash. Palpitation: Normal elasticity for age Abdomen: unable as pt not allowing Psych: no insight MSK: no joint tenderness or swelling. Digits and nails normal, no deformity : has nephrostomy tubes draining urine access: permacath Labs/imaging reviewed. Past medical history, past surgical history, family history, social history, allergy reviewed and noted as below Family hx: no hx of CKD. Rest non-contributory Objective - Vital Signs/Intake and Output Vital Signs (last 24 hours): Temp Pulse Resp BP Pulse Ox 97.4 F L 86 20 100/68 97 11/16/17 08:02 11/16/17 08:02 11/16/17 08:02 11/16/17 08:02 11/16/17 08:02 Intake and Output: 11/16/17 11/16/17 06:59 18:59 Intake Total 400 120 Output Total 350 400 Balance 50 -280 - Medications Medications: Current Medications Carvedilol (Coreg) 3.125 mg PO HS [facility] Last Admin: 11/15/17 21:49 Dose: Not Given Famotidine (Pepcid) 20 mg PO 0730 [facility] Last Admin: 11/16/17 07:18 Dose: 20 mg Ferrous Gluconate (Fergon) 324 mg PO TID [facility] Last Admin: 11/16/17 09:57 Dose: 324 mg Cefepime HCl (Maxipime Iv 1 Gm Premix) 1 gm in 50 mls @ 100 mls/hr IVPB Q24H [facility] PRN Reason: Protocol Last Admin: 11/15/17 19:53 Dose: 100 mls/hr Vitamin B Complex/Vit C/Folic Acid (Nephro-Robel) 1 tab PO DAILY [facility] Last Admin: 11/16/17 09:57 Dose: 1 tab - Labs Labs: 11/16/17 07:05 11/16/17 07:05 PT 19.8 SECONDS (9.7-12.2) H 11/16/17 07:05 INR 1.8 11/16/17 07:05 APTT 40 SECONDS (21-34) H 11/13/17 07:45
[2017-11-16 19:21] LABS: SQUAMOUS EPITHIAL < 1 /hpf (0-5); URINE BACTERIA RARE (<OCC); URINE BILIRUBIN NEGATIVE (NEGATIVE); URINE BLOOD 1+ (NEGATIVE); URINE CLARITY Hazy (Clear); URINE COLOR Yellow (YELLOW); URINE GLUCOSE (UA) NORMAL (Normal); URINE LEUKOCYTE ESTERASE 3+ Leu/uL (Negative); URINE PROTEIN 1+ mg/dL (NEGATIVE); URINE UROBILINOGEN NORMAL mg/dL (0.2-1.0)
[2017-11-16] MEDS: Cefepime IV 1 gm in Dextrose 1 GM/50 ML BAG IVPB SCH (20:18)
[2017-11-17 07:34] LABS: HEMOGLOBIN 11.2 g/dL (12.0-18.0); MEAN CELL VOLUME 91.4 fL (80.0-94.0); MEAN CORPUSCULAR HEMOGLOBIN 30.5 pg (27.0-31.0); MEAN CORPUSCULAR HGB CONC 33.4 g/dL (33.0-37.0); MEAN PLATELET VOLUME 7.6 fL (7.2-11.7); RBC 3.66 Mil/uL (4.40-5.90); RED CELL DISTRIBUTION WIDTH 16.5 % (11.5-14.5); WHITE BLOOD COUNT 5.5 K/uL (4.8-10.8)
[2017-11-17 07:51] LABS: ALB/GLOB RATIO 0.9 (1.0-2.1); ALBUMIN 3.6 g/dL (3.5-5.0); CALCIUM 8.2 mg/dl (8.6-10.4)
[2017-11-17] MEDS: Multivitamin Vitamin B Complex (Nephro-Vite) Tab PO SCH (09:02)
--- NOTE | 2017-11-17 14:34 | CP.PCM.PN ---
Subjective - Date & Time of Evaluation Date of Evaluation: 11/17/17 Time of Evaluation: 14:33 - Subjective Subjective: Nephrology Consultation Note: Assessment: stable UTI with GNR ESRD on HD via permacath (TTS) hx of b/l massive hydronephrosis and loss of renal cortex s/p b/l nephrostomy left femoral DVT. neg for HIT/hypercoag work up Anemia, hx of MR vit D def with secondary hyperparathyroidism chronic systolic CHF with LVEF 35% Plan Plan for dialysis today as TTS schedule. continue with nephrovite 1 tab/day continue with low dose coreg, not on RAAS chaitanya due to low BP urology and ID consult appreciated planned for nephrostomy tube exchange 11/17/17 pt on systemic a/c with oral coumadin last Hb 11.7 hence not on WILBER outpt PTH and Phos under control Dose meds/antibiotics for dialysis status. Avoid fleets enema/magnesium based laxatives. Avoid nephrotoxins/NSAIDs Glycemic control Further work up/management as per primary team. Thanks for allowing me to participate in care of your patient. Will follow patient with you. Please call if any Qs. had d/w mother and team Dr Phillip Dixon Office: [phone] CC: unable to obtain reason for consult; ESRD HPI: Pt is a 27 M with MR and chronic obstructive uropathy and progressive CKD as a result of obstruction, now ESRD on HD (TTS) @ [place] unit, CHF, DVT came with cloudy urine output from nephrostomy tube along with feeling of sickness, nausea/vomitting and feeling cold and being treated for UTI renal consult for ESRD management ROS: pt unable to provide due to MR. overnight events noted. per mother, pt is doing better, happy and eating well Physical Examination: General Appearance: Comfortable, in no acute respiratory distress Vitals reviewed and noted as below Head; Atraumatic, normocephalic ENT: no ulcers no thrush. Tongue is midline. Oropharynx: no rash or ulcers. EYES: Pupils are equal, round and reactive to light accommodation. Eye muscles and extraocular movement intact. Sclera is anicteric. Neck; supple no lymphadenopathy, no thyromegaly or bruit Lungs: Normal respiratory rate/effort. Breath sounds bilateral equal and clear Heart: Normal rate. s1s2 normal. No rub or gallop. Extremities: no edema. No varicose veins Neurological: Patient is alert, awake, has severe MR, non communicative, non verbal Skin: Warm and dry. Normal turgor. No rash. Palpitation: Normal elasticity for age Abdomen: unable as pt not allowing Psych: no insight MSK: no joint tenderness or swelling. Digits and nails normal, no deformity : has nephrostomy tubes draining urine access: permacath Labs/imaging reviewed. Past medical history, past surgical history, family history, social history, allergy reviewed and noted as below Family hx: no hx of CKD. Rest non-contributory Objective - Vital Signs/Intake and Output Vital Signs (last 24 hours): Temp Pulse Resp BP Pulse Ox 98.7 F 72 20 112/71 97 11/17/17 08:00 11/17/17 08:00 11/17/17 08:00 11/17/17 08:00 11/17/17 08:00 Intake and Output: 11/17/17 11/17/17 06:59 18:59 Intake Total 300 Output Total 1300 Balance -1000 - Medications Medications: Current Medications Carvedilol (Coreg) 3.125 mg PO HS [facility] Last Admin: 11/16/17 21:01 Dose: Not Given Famotidine (Pepcid) 20 mg PO 0730 [facility] Last Admin: 11/17/17 07:30 Dose: Not Given Ferrous Gluconate (Fergon) 324 mg PO TID [facility] Last Admin: 11/17/17 13:02 Dose: Not Given Cefepime HCl (Maxipime Iv 1 Gm Premix) 1 gm in 50 mls @ 100 mls/hr IVPB Q24H [facility] PRN Reason: Protocol Last Admin: 11/16/17 20:18 Dose: 100 mls/hr Vitamin B Complex/Vit C/Folic Acid (Nephro-Robel) 1 tab PO DAILY [facility] Last Admin: 11/17/17 09:02 Dose: Not Given - Labs Labs: 11/17/17 07:18 11/17/17 07:18 PT 19.8 SECONDS (9.7-12.2) H 11/16/17 07:05 INR 1.8 11/16/17 07:05 APTT 40 SECONDS (21-34) H 11/13/17 07:45
[2017-11-17 20:12] VITALS: BP 99/74; PULSE 69; RESP 17; TEMP 98; O2SAT 100
--- NOTE | 2017-11-18 06:32 | DS ---
HISTORY: After dialysis today, from the mother, the patient is going for cystoscopy with Dr. Hoover. I never knew that. No notes to explain that. There were no notes yesterday, now there are notes in the chart. He is on Coreg, Fergon, Maxipime, Nephro-Robel, and Pepcid. PHYSICAL EXAMINATION: VITAL SIGNS: Temperature 98, blood pressure 99/64, respiratory rate 20, and sat 97% sat on room air. HEENT: Head is atraumatic, normocephalic. HEART: Regular rate. LUNGS: Clear to auscultation. ABDOMEN: Soft. EXTREMITIES: No edema. He is being accompanied by his mother. LABORATORY DATA: White count 4.6, hemoglobin 11.7, and platelets 195. Sodium 141, potassium 3.8, BUN 61, creatinine 6.3, sugars 86, calcium is 8.2. Total bili is 0.5, AST is 33, ALT is 43, alk phos is 53. We will see what the cysto says. We will see if he could the discharge the patient home. I would like to go on IV antibiotics as per Dr. Ku, the Infectious Disease doctor. antibiotics with dialysis. We will see if the Case Management can help us organize the discharge safely. with hydronephrosis. Lambert Gonsales DO [facility] MEDICAL CENTERJose Luis
== END 2017-11-17 20:35 | disposition home or self-care (01) | DRG 871 ==
LOC: C.ER 20:25 → C.3T 21:04
PROVIDERS: ADMIT Family Medicine; ATTEND Family Medicine
PROC: 5A1D70Z Performance of Urinary Filtration, Intermittent, Less than 6 Hours Per Day (ICD-10-PCS; principal; 2017-11-14)
PROC: 5A1D70Z Performance of Urinary Filtration, Intermittent, Less than 6 Hours Per Day (ICD-10-PCS; 2017-11-17)
DX: A41.9 Sepsis, unspecified organism (principal); N11.9 Chronic tubulo-interstitial nephritis, unspecified; N18.6 End stage renal disease; I50.22 Chronic systolic (congestive) heart failure; I13.2 Hypertensive heart and chronic kidney disease with heart failure and with stage 5 chronic kidney disease, or end stage renal disease; N25.81 Secondary hyperparathyroidism of renal origin; N13.30 Unspecified hydronephrosis; N13.9 Obstructive and reflux uropathy, unspecified; Q90.9 Down syndrome, unspecified; E55.9 Vitamin D deficiency, unspecified; F84.0 Autistic disorder; D64.9 Anemia, unspecified; Z43.6 Encounter for attention to other artificial openings of urinary tract; Z99.2 Dependence on renal dialysis; Z79.01 Long term (current) use of anticoagulants

== ENCOUNTER 2017-12-03 22:50 | Inpatient (IN) | payer OTHER ==
[2017-12-03 22:51] VITALS: BMI 20.2
--- NOTE | 2017-12-03 23:35 | C.PDOC ---
History Of Present Illness 27 y/o female with Hx of ESRD(on dialysis: T,TH,Sat) transferred from [place] for UTI. As per mother patient got dialysis today and is asymptomatic even when he has a UTI. 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 As per mother, patient has an indwelling urethral stent since july. Time Seen by Provider: 12/03/17 23:22 Chief Complaint (Nursing): Male Genitourinary History Per: Patient, Family (Mother) History/Exam Limitations: no limitations Onset/Duration Of Symptoms: Hrs Current Symptoms Are (Timing): Still Present Associated Symptoms: denies: Fever, Chills, Nausea, Vomiting, Diarrhea Alleviating Factors: None Recent travel outside of the [place]: No Past Medical History Reviewed: Historical Data, Nursing Documentation, Vital Signs Vital Signs: Last Vital Signs Temp 98.9 F 12/03/17 22:59 Pulse 96 H 12/03/17 22:59 Resp 18 12/03/17 22:59 BP 113/74 12/03/17 22:59 Pulse Ox 98 12/03/17 23:35 - Medical History PMH: HTN, Chronic Kidney Disease - [facility] Procedures (11/12/17) DRAINAGE OF LEFT KIDNEY PELVIS WITH DRAIN DEV, PERC APPROACH (06/04/17) DRAINAGE OF R KIDNEY PELVIS WITH DRAIN DEV, PERC APPROACH (06/04/17) FLUOROSCOPY OF RIGHT JUGULAR VEINS, GUIDANCE (06/04/17) INSERT INFUSION DEV IN R INT JUGULAR VEIN, PERC (06/04/17) INSERTION OF INFUSION DEVICE INTO LOWER VEIN, PERC APPROACH (06/04/17) ULTRASONOGRAPHY OF LEFT LOWER EXTREMITY VEINS, GUIDANCE (06/04/17) ULTRASONOGRAPHY OF RIGHT JUGULAR VEINS, GUIDANCE (06/04/17) Family History: States: Unknown Family Hx - Social History Hx Tobacco Use: No Hx Alcohol Use: No Hx Substance Use: No - Immunization History Hx Tetanus Toxoid Vaccination: Yes Hx Influenza Vaccination: Yes Hx Pneumococcal Vaccination: No Review Of Systems Constitutional: Negative for: Fever, Chills Gastrointestinal: Negative for: Nausea, Vomiting, Abdominal Pain, Diarrhea Genitourinary: Positive for: Other (UTI) Skin: Negative for: Rash Neurological: Negative for: Weakness, Numbness Physical Exam - Physical Exam Appears: Well, Non-toxic, No Acute Distress, Other (Typical down syndrome faces) Skin: Normal Color, Warm, Dry Head: Atraumatic, Normacephalic Eye(s): bilateral: Normal Inspection, PERRL, EOMI Oral Mucosa: Moist Neck: Supple Chest: Symmetrical, No Tenderness Cardiovascular: Rhythm Regular Respiratory: Normal Breath Sounds, No Decreased Breath Sounds, No Rales, No Rhonchi, No Wheezing Gastrointestinal/Abdominal: Soft, No Tenderness Extremity: Normal ROM Extremity: Bilateral: Atraumatic, Normal Color And Temperature, Normal ROM Neurological/Psych: Oriented x3, Normal Speech Gait: Steady ED Course And Treatment O2 Sat by Pulse Oximetry: 98 (RA) Pulse Ox Interpretation: Normal - Physician Consult Information Outcome Of Conversation: 1929 d/w Dr. Rahman- ED @ [place]- will transfer to for HD. 2329: d/w Dr. Goldberg, Medicine Regulator Assembler- ok to admit Medical Decision Making Medical Decision Making: Ordered Obstructive series X-Ray. 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 Dr. Farrah Hoover for Urology Dr. Dixon- Urology for HD T/H/Sat Pending Evaluation by Dr. Tacos Hoover. Disposition Doctor Will See Patient In The: Hospital Counseled Patient/Family Regarding: Studies Performed, Diagnosis - Disposition Disposition: HOSPITALIZED Disposition Time: 23:35 Condition: GOOD - Clinical Impression Clinical Impression: Down syndrome, ESRD (end stage renal disease) on dialysis, UTI (urinary tract infection) - Scribe Statement The provider has reviewed the documentation as recorded by the Zacharyibalfonzo Lima All medical record entries made by the Zacharyibalfonzo were at my direction and personally dictated by me. I have reviewed the chart and agree that the record accurately reflects my personal performance of the history, physical exam, medical decision making, and the department course for this patient. I have also personally directed, reviewed, and agree with the discharge instructions and disposition.
--- NOTE | 2017-12-04 08:19 | PCM.URO ---
Urology Progress Note - Objective Lab Studies: Reviewed (pt well known to us we will plan to change stent next week full note dictated #[id number] thank you for gu consult) Intake & Output: Intake & Output 12/03/17 12/04/17 12/04/17 18:59 06:59 18:59 Weight 107 lb Other: Voiding Method Indwelling Catheter Vital Signs: Vital Signs - 24 hr 12/03/17 12/04/17 12/04/17 22:59 00:36 00:37 Temperature 98.9 F Pulse Rate 96 H 80 Pulse Rate [ Right Brachial] Respiratory 18 14 Rate Blood Pressure 113/74 110/70 O2 Sat by Pulse 98 96 98 Oximetry 12/04/17 01:04 Temperature 97.5 F L Pulse Rate 83 Pulse Rate [ 83 Right Brachial] Respiratory 20 Rate Blood Pressure 114/80 O2 Sat by Pulse 98 Oximetry
[2017-12-04 08:34] LABS: INR 2.2; PROTHROMBIN TIME 24.2 SECONDS (9.7-12.2)
--- NOTE | 2017-12-04 08:45 | RAD ---
PROCEDURE: Radiographs of the chest and abdomen (obstructive series) HISTORY: adm, ureteral stents COMPARISON: No prior. TECHNIQUE: AP radiograph of the chest, with upright and supine radiographs of the abdomen. FINDINGS: CHEST: Lungs: The right-sided dialysis catheter terminates at the cavoatrial junction. The lungs are well inflated and clear. Cardiovascular: Normal size heart. No pulmonary vascular congestion. Pleura: No pleural fluid. No pneumothorax. Other findings: None. ABDOMEN AND PELVIS: Bowel: There is large amount of stool in the colon and rectum. No evidence of mechanical obstruction. Free air: None. Bones: Unremarkable. Other findings: Bilateral ureteral stents remain in place. IMPRESSION: Constipation. No evidence of mechanical bowel obstruction. Clear lungs. Bilateral ureteral stents remain in customary position.
[2017-12-04] MEDS: Multivitamin Vitamin B Complex (Nephro-Vite) Tab PO SCH (09:22)
--- NOTE | 2017-12-04 19:42 | CON ---
DATE: 12/04/2017 REASON FOR CONSULTATION: . Mr. Pierce is admitted to the care of Dr. Goldberg. He is well known to us. He has renal failure and he received dialysis three times a week. He has bilateral hydronephrosis. He has renal failure. He also has multiple medical issues. He lives with an indwelling Nick catheter and, when we meet him he actually had nephrostomy tube inserted. We subsequently have been able to change his stent periodically. We change them once every three months. It is about the time now, I have been speaking to the mother on the phone. See the plans as listed below. PAST MEDICAL AND SURGICAL HISTORY: As listed. REVIEW OF SYSTEMS: As listed above. SOCIAL HISTORY: Again, his takes care of him. He is adopted. PHYSICAL EXAMINATION: GENERAL: A well-nourished male, in no apparent distress, currently resting comfortably in the bed. ABDOMEN: Difficult to evaluate for distention, but not grossly distended and everything else remains within normal limits. DIAGNOSES: Voiding dysfunction, urinary retention, bilateral hydronephrosis, renal failure, dialysis, and hematuria. PLAN: As follows; today, no change in the care. We will plan for changing the stent sometime next week, today is . Thank you for the urology consult. Norm Hoover MD
--- NOTE | 2017-12-04 23:11 | CP.PCM.HP ---
Past Patient History - Infectious Disease Hx of Infectious Diseases: VRE - Past Medical History & Family History Past Medical History?: Yes - Past Social History Smoking Status: Never Smoked - CARDIAC Hx Hypertension: Yes - PULMONARY Hx Respiratory Disorders: No - NEUROLOGICAL Hx 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) - HEENT Hx HEENT Problems: No - RENAL Hx Chronic Kidney Disease: Yes Date of Last Dialysis Treatment: 12/03/17 - ENDOCRINE/METABOLIC Hx Endocrine Disorders: No - HEMATOLOGICAL/ONCOLOGICAL Hx Blood Disorders: No - INTEGUMENTARY Hx Dermatological Problems: Yes Hx Eczema: Yes - MUSCULOSKELETAL/RHEUMATOLOGICAL Hx Musculoskeletal Disorders: No Hx Falls: Yes - GASTROINTESTINAL Hx Gastrointestinal Disorders: No - GENITOURINARY/GYNECOLOGICAL Hx Genitourinary Disorders: Yes Other/Comment: REYES - PSYCHIATRIC Hx Substance Use: No - SURGICAL HISTORY Hx Vascular Access Device: Yes Other/Comment: CYSTOSCOPY. NEPHROSTOMY TUBES, ROWDY. - ANESTHESIA Hx Anesthesia: Yes Hx Anesthesia Reactions: No Hx Malignant Hyperthermia: No Meds Allergies/Adverse Reactions: Allergies Allergy/AdvReac Type Severity Reaction Status Date / Time No Known Allergies Allergy Verified 12/03/17 22:56 Results - Vital Signs Recent Vital Signs: Last Vital Signs Temp 97.8 F 12/04/17 16:06 Pulse 85 12/04/17 16:06 Resp 18 12/04/17 16:06 BP 89/51 L 12/04/17 16:06 Pulse Ox 95 12/04/17 20:00 - Labs Labs: Laboratory Results - last 24 hr 12/04/17 08:32 PT 24.2 H INR 2.2
[2017-12-05 02:22] LABS: SQUAMOUS EPITHIAL 16 /hpf (0-5); URINE BACTERIA OCC (<OCC); URINE BILIRUBIN NEGATIVE (NEGATIVE); URINE BLOOD NEGATIVE (NEGATIVE); URINE CLARITY Hazy (Clear); URINE COLOR Yellow (YELLOW); URINE GLUCOSE (UA) NORMAL (Normal); URINE LEUKOCYTE ESTERASE 3+ Leu/uL (Negative); URINE PROTEIN 1+ mg/dL (NEGATIVE); URINE UROBILINOGEN NORMAL mg/dL (0.2-1.0)
--- NOTE | 2017-12-05 07:31 | PN ---
CHIEF COMPLAINT: The patient is admitted for hemodialysis. HISTORY OF PRESENT ILLNESS: This is a 27-year-old male with history of Down syndrome. He has history of ureteral stenosis, recurrent urinary tract infection, vesicoureteral reflux with hydronephrosis, hydroureter, and he has end-stage renal disease as a result of obstructive uropathy since 06/2017, and he has been on hemodialysis with a Perm-A-Cath as the patient has urinary tract infection with VRE, and the patient denies any dysuria. The patient is not able to give any information. He has been on Zyvox for suspected VRE. He has been seen by Urology and Nephrology. He denies any polyuria, polydipsia, polyphagia. There is no history of nausea or vomiting. There is no history of dysuria or hematuria. There is no abdominal pain. PAST MEDICAL HISTORY: Down syndrome, obstructive uropathy, CKD, on hemodialysis. SOCIAL HISTORY: Nonsmoker, nondrinker. He lives with his mother. CURRENT MEDICATION: Coreg. PHYSICAL EXAMINATION: GENERAL: A young male, in no acute distress. VITAL SIGNS: Blood pressure 113/70, pulse 90 , respiratory rate 18, temperature 98.9. SKIN: Warm. Good turgor. HEENT: Atraumatic, normocephalic. NECK: Supple. No JVD. CHEST WALL: Bilaterally symmetrical. LUNGS: Reveals no rales, no rhonchi. CVS: S1 and S2 regular. No heave noted. ABDOMEN: Soft, nontender. Bowel sounds are present. No costovertebral angle tenderness. RECTAL AND PELVIC: Unable to allow. SENIOR PRODUCT DEVELOPMENT MANAGER: The patient is awake, alert. ASSESSMENT: 1. End stage renal, on hemodialysis. 2. 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 PLAN: Admit. Detailed orders written. Seen and examined. Víctor Goldberg MD
[2017-12-05 08:03] LABS: BASO # 0.1 K/uL (0.0-0.2); BASO % 1.8 % (0.0-2.0); EOS # 0.1 K/uL (0.0-0.7); EOS % 2.5 % (0.0-4.0); HEMOGLOBIN 11.4 g/dL (12.0-18.0); LYMPH # 1.5 K/uL (1.0-4.3); LYMPH % 34.8 % (20.0-40.0); MEAN CELL VOLUME 91.2 fL (80.0-94.0); MONO # 0.5 K/uL (0.0-0.8); MONO % 11.7 % (0.0-10.0); NEUT # 2.2 K/uL (1.8-7.0); NEUT % 49.2 % (50.0-75.0); NRBC % 0.1 % (0.0-2.0); RBC 3.67 Mil/uL (4.40-5.90); RED CELL DISTRIBUTION WIDTH 16.1 % (11.5-14.5); WHITE BLOOD COUNT 4.4 K/uL (4.8-10.8)
[2017-12-05 08:27] LABS: ALB/GLOB RATIO 1.1 (1.0-2.1); CALCIUM 8.2 mg/dl (8.6-10.4)
[2017-12-05] MEDS: Multivitamin Vitamin B Complex (Nephro-Vite) Tab PO SCH (09:45)
--- NOTE | 2017-12-05 18:19 | CP.PCM.CON ---
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 neg for HIT/hypercoag work up Anemia, hx of MR vit D def with secondary hyperparathyroidism chronic systolic CHF with LVEF 35% Plan Plan for dialysis tomorrow as TTS schedule. continue with nephrovite 1 tab/day continue with low dose coreg as tolerated by BP for his CHF hx, not on RAAS chaitanya due to low BP urology and ID consult appreciated pt on systemic a/c with oral coumadin last Hb 11.4 hence not on WILBER outpt PTH and Phos under control Dose meds/antibiotics for dialysis status. Avoid fleets enema/magnesium based laxatives. Avoid nephrotoxins/NSAIDs Glycemic control Further work up/management as per primary team. Thanks for allowing me to participate in care of your patient. Will follow patient with you. Please call if any Qs. had d/w family Dr Phillip [place] Office: [phone] CC: unable to obtain reason for consult; ESRD HPI: Pt is a 27 M with MR and chronic obstructive uropathy and progressive CKD as a result of obstruction, now ESRD on HD (TTS) @ [place] unit, CHF, DVT came with MDR Bacteria in urine renal consult for ESRD management ROS: pt unable to provide due to MR. overnight events noted. per father, pt is doing better, happy and eating well Physical Examination: General Appearance: Comfortable, in no acute respiratory distress Vitals reviewed and noted as below Head; Atraumatic, normocephalic ENT: no ulcers no thrush. Tongue is midline. Oropharynx: no rash or ulcers. EYES: Pupils are equal, round and reactive to light accommodation. Eye muscles and extraocular movement intact. Sclera is anicteric. Neck; supple no lymphadenopathy, no thyromegaly or bruit Lungs: Normal respiratory rate/effort. Breath sounds bilateral equal and clear Heart: Normal rate. s1s2 normal. No rub or gallop. Extremities: no edema. No varicose veins Neurological: Patient is alert, awake, has severe MR, non communicative, non verbal Skin: Warm and dry. Normal turgor. No rash. Palpitation: Normal elasticity for age Abdomen: unable as pt not allowing Psych: no insight MSK: no joint tenderness or swelling. Digits and nails normal, no deformity : has nephrostomy tubes draining urine access: permacath Labs/imaging reviewed. Past medical history, past surgical history, family history, social history, allergy reviewed and noted as below Family hx: no hx of CKD. Rest non-contributory Past Patient History - Infectious Disease Hx of Infectious Diseases: VRE - Past Medical History & Family History Past Medical History?: Yes - Past Social History Smoking Status: Never Smoked - CARDIAC Hx Hypertension: Yes - PULMONARY Hx Respiratory Disorders: No - NEUROLOGICAL Hx 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) - HEENT Hx HEENT Problems: No - RENAL Hx Chronic Kidney Disease: Yes Date of Last Dialysis Treatment: 12/03/17 - ENDOCRINE/METABOLIC Hx Endocrine Disorders: No - HEMATOLOGICAL/ONCOLOGICAL Hx Blood Disorders: No - INTEGUMENTARY Hx Dermatological Problems: Yes Hx Eczema: Yes - MUSCULOSKELETAL/RHEUMATOLOGICAL Hx Musculoskeletal Disorders: No Hx Falls: Yes - GASTROINTESTINAL Hx Gastrointestinal Disorders: No - GENITOURINARY/GYNECOLOGICAL Hx Genitourinary Disorders: Yes Other/Comment: REYES - PSYCHIATRIC Hx Substance Use: No - SURGICAL HISTORY Hx Vascular Access Device: Yes Other/Comment: CYSTOSCOPY. NEPHROSTOMY TUBES, ROWDY. - ANESTHESIA Hx Anesthesia: Yes Hx Anesthesia Reactions: No Hx Malignant Hyperthermia: No Meds Allergies/Adverse Reactions: Allergies Allergy/AdvReac Type Severity Reaction Status Date / Time No Known Allergies Allergy Verified 12/03/17 22:56 - Medications Medications: Current Medications Carvedilol (Coreg) 3.125 mg PO DAILY [facility] Famotidine (Pepcid) 20 mg PO DAILY [facility] Last Admin: 12/04/17 09:22 Dose: 20 mg Ferrous Gluconate (Fergon) 324 mg PO TID [facility] Last Admin: 12/04/17 09:22 Dose: 324 mg Vitamin B Complex/Vit C/Folic Acid (Nephro-Robel) 1 tab PO DAILY [facility] Last Admin: 12/04/17 09:22 Dose: 1 tab Results - Vital Signs Recent Vital Signs: Last Vital Signs Temp 98.4 F 12/04/17 08:21 Pulse 79 12/04/17 08:21 Resp 23 12/04/17 08:21 BP 87/53 L 12/04/17 08:21 Pulse Ox 97 12/04/17 08:21 - Labs Result Diagrams: 12/05/17 07:51 12/05/17 07:51 Labs: Laboratory Results - last 24 hr 12/04/17 08:32 PT 24.2 H INR 2.2
--- NOTE | 2017-12-05 18:20 | CP.PCM.PN ---
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 neg for HIT/hypercoag work up Anemia, hx of MR vit D def with secondary hyperparathyroidism chronic systolic CHF with LVEF 35% Plan Plan for dialysis today as TTS schedule. continue with nephrovite 1 tab/day continue with low dose coreg as tolerated by BP for his CHF hx, not on RAAS chaitanya due to low BP urology and ID consult appreciated pt on systemic a/c with oral coumadin last Hb 11.4 hence not on WILBER outpt PTH and Phos under control Dose meds/antibiotics for dialysis status. Avoid fleets enema/magnesium based laxatives. Avoid nephrotoxins/NSAIDs Glycemic control Further work up/management as per primary team. Thanks for allowing me to participate in care of your patient. Will follow patient with you. Please call if any Qs. had d/w family Dr Phillip [place] Office: [phone] CC: unable to obtain reason for consult; ESRD HPI: Pt is a 27 M with MR and chronic obstructive uropathy and progressive CKD as a result of obstruction, now ESRD on HD (TTS) @ [place] unit, CHF, DVT came with MDR Bacteria in urine renal consult for ESRD management ROS: pt unable to provide due to MR. overnight events noted. per mother, pt is doing better, happy and eating well Physical Examination: General Appearance: Comfortable, in no acute respiratory distress Vitals reviewed and noted as below Head; Atraumatic, normocephalic ENT: no ulcers no thrush. Tongue is midline. Oropharynx: no rash or ulcers. EYES: Pupils are equal, round and reactive to light accommodation. Eye muscles and extraocular movement intact. Sclera is anicteric. Neck; supple no lymphadenopathy, no thyromegaly or bruit Lungs: Normal respiratory rate/effort. Breath sounds bilateral equal and clear Heart: Normal rate. s1s2 normal. No rub or gallop. Extremities: no edema. No varicose veins Neurological: Patient is alert, awake, has severe MR, non communicative, non verbal Skin: Warm and dry. Normal turgor. No rash. Palpitation: Normal elasticity for age Abdomen: unable as pt not allowing Psych: no insight MSK: no joint tenderness or swelling. Digits and nails normal, no deformity : has nephrostomy tubes draining urine access: permacath Labs/imaging reviewed. Past medical history, past surgical history, family history, social history, allergy reviewed and noted as below Family hx: no hx of CKD. Rest non-contributory Objective - Vital Signs/Intake and Output Vital Signs (last 24 hours): Temp Pulse Resp BP Pulse Ox 98.3 F 91 H 20 112/69 99 12/05/17 16:00 12/05/17 16:00 12/05/17 16:00 12/05/17 16:00 12/05/17 16:00 Intake and Output: 12/05/17 12/05/17 06:59 18:59 Intake Total 500 Output Total 200 Balance -200 500 - Medications Medications: Current Medications Carvedilol (Coreg) 3.125 mg PO DAILY [facility] 234 BEDS AT [facility] Last Admin: 12/05/17 10:00 Dose: Not Given Famotidine (Pepcid) 20 mg PO DAILY COUNTS INCLUDE 234 BEDS AT THE [facility] Last Admin: 12/05/17 09:45 Dose: 20 mg Ferrous Gluconate (Fergon) 324 mg PO TID [facility]S INCLUDE 234 BEDS AT THE [facility] Last Admin: 12/05/17 17:28 Dose: 324 mg Vitamin B Complex/Vit C/Folic Acid (Nephro-Robel) 1 tab PO DAILY [facility]S INCLUDE 234 BEDS AT [facility] Last Admin: 12/05/17 09:45 Dose: 1 tab - Labs Labs: 12/05/17 07:51 12/05/17 07:51 PT 24.2 SECONDS (9.7-12.2) H 12/04/17 08:32 INR 2.2 12/04/17 08:32
--- NOTE | 2017-12-05 23:30 | CP.PCM.PN ---
Objective - Vital Signs/Intake and Output Vital Signs (last 24 hours): Temp Pulse Resp BP Pulse Ox 98.3 F 91 H 20 112/69 99 12/05/17 16:00 12/05/17 16:00 12/05/17 16:00 12/05/17 16:00 12/05/17 16:00 Intake and Output: 12/05/17 12/06/17 18:59 06:59 Intake Total 500 Balance 500 - Medications Medications: Current Medications Carvedilol (Coreg) 3.125 mg PO DAILY [facility] Last Admin: 12/05/17 10:00 Dose: Not Given Famotidine (Pepcid) 20 mg PO DAILY [facility] Last Admin: 12/05/17 09:45 Dose: 20 mg Ferrous Gluconate (Fergon) 324 mg PO TID [facility] Last Admin: 12/05/17 17:28 Dose: 324 mg Vitamin B Complex/Vit C/Folic Acid (Nephro-Robel) 1 tab PO DAILY [facility] Last Admin: 12/05/17 09:45 Dose: 1 tab - Labs Labs: 12/05/17 07:51 12/05/17 07:51 PT 24.2 SECONDS (9.7-12.2) H 12/04/17 08:32 INR 2.2 12/04/17 08:32
[2017-12-06] MEDS: Multivitamin Vitamin B Complex (Nephro-Vite) Tab PO SCH (08:59)
--- NOTE | 2017-12-06 11:59 | CP.PCM.PN ---
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 neg for HIT/hypercoag work up Anemia, hx of MR vit D def with secondary hyperparathyroidism chronic systolic CHF with LVEF 35% Plan Plan for dialysis today as TTS schedule. continue with nephrovite 1 tab/day continue with low dose coreg (changed to MWF schedule) as tolerated by BP for his CHF hx, not on RAAS chaitanya due to low BP urology and ID consult appreciated pt on systemic a/c with oral coumadin last Hb 11.4 hence not on WILBER outpt PTH and Phos under control Dose meds/antibiotics for dialysis status. Avoid fleets enema/magnesium based laxatives. Avoid nephrotoxins/NSAIDs Glycemic control Further work up/management as per primary team. Thanks for allowing me to participate in care of your patient. Will follow patient with you. Please call if any Qs. had d/w family Dr Phillip [place] Office: [phone] CC: unable to obtain reason for consult; ESRD HPI: Pt is a 27 M with MR and chronic obstructive uropathy and progressive CKD as a result of obstruction, now ESRD on HD (TTS) @ [place] [facility], CHF, DVT came with MDR Bacteria in urine renal consult for ESRD management ROS: pt unable to provide due to MR. overnight events noted. per mother, pt is doing better, happy and eating well Physical Examination: General Appearance: Comfortable, in no acute respiratory distress Vitals reviewed and noted as below Head; Atraumatic, normocephalic ENT: no ulcers no thrush. Tongue is midline. Oropharynx: no rash or ulcers. EYES: Pupils are equal, round and reactive to light accommodation. Eye muscles and extraocular movement intact. Sclera is anicteric. Neck; supple no lymphadenopathy, no thyromegaly or bruit Lungs: Normal respiratory rate/effort. Breath sounds bilateral equal and clear Heart: Normal rate. s1s2 normal. No rub or gallop. Extremities: no edema. No varicose veins Neurological: Patient is alert, awake, has severe MR, non communicative, non verbal Skin: Warm and dry. Normal turgor. No rash. Palpitation: Normal elasticity for age Abdomen: unable as pt not allowing Psych: no insight MSK: no joint tenderness or swelling. Digits and nails normal, no deformity : has nephrostomy tubes draining urine access: permacath Labs/imaging reviewed. Past medical history, past surgical history, family history, social history, allergy reviewed and noted as below Family hx: no hx of CKD. Rest non-contributory Objective - Vital Signs/Intake and Output Vital Signs (last 24 hours): Temp Pulse Resp BP Pulse Ox 97.3 F L 71 20 77/50 L 100 12/06/17 08:45 12/06/17 08:45 12/06/17 08:45 12/06/17 08:45 12/06/17 08:45 Intake and Output: 12/06/17 12/06/17 06:59 18:59 Output Total 700 Balance -700 - Medications Medications: Current Medications Carvedilol (Coreg) 3.125 mg PO [facility] [place] Famotidine (Pepcid) 20 mg PO DAILY [facility] Last Admin: 12/06/17 08:59 Dose: 20 mg Ferrous Gluconate (Fergon) 324 mg PO TID [facility] Last Admin: 12/06/17 08:59 Dose: 324 mg Vitamin B Complex/Vit C/Folic Acid (Nephro-Robel) 1 tab PO DAILY [facility] Last Admin: 12/06/17 08:59 Dose: 1 tab - Labs Labs: 12/05/17 07:51 12/05/17 07:51 PT 24.2 SECONDS (9.7-12.2) H 12/04/17 08:32 INR 2.2 12/04/17 08:32
--- NOTE | 2017-12-06 13:58 | CP.PCM.CON ---
History of Present Illness - History of Present Illness History of Present Illness: 27 y/o female with Hx of ESRD(on dialysis: T,TH,Sat) transferred from [place] for UTI. As per mother patient got dialysis today and is asymptomatic even when he has a UTI. 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 As per mother, patient has an indwelling urethral stent since july. - Medical History PMH: HTN, Chronic Kidney Disease Trisomy 21 Review of Systems - Review of Systems Systems not reviewed;Unavailable: Altered Mental Status All systems: reviewed and no additional remarkable complaints except - Constitutional Constitutional: As Per HPI - EENT Eyes: absent: As Per HPI, Blind Spots, Blurred Vision, Change in Vision, Decreased Night Vision, Diplopia, Discharge, Dry Eye, Exophthalmos, Floaters, Irritation, Itchy Eyes, Loss of Peripheral Vision, Pain, Photophobia, Requires Corrective Lenses, Sees Flashes, Spots in Vision, Tunnel Vision, Other Visual Disturbances, Loss of Vision, Other Ears: absent: As Per HPI, Decreased Hearing, Ear Discharge, Ear Pain, Tinnitus, Abnormal Hearing, Disequilibrium, Dizziness, Other Nose/Mouth/Throat: absent: As Per HPI, Epistaxis, Nasal Congestion, Nasal Discharge, Nasal Obstruction, Nasal Trauma, Nose Pain, Post Nasal Drip, Sinus Pain, Sinus Pressure, Bleeding Gums, Change in Voice, Dental Pain, Dry Mouth, Dysphagia, Halitosis, Hoarsness, Lip Swelling, Mouth Lesions, Mouth Pain, Odynophagia, Sore Throat, Throat Swelling, Tongue Swelling, Facial Pain, Neck Pain, Neck Mass, Other - Cardiovascular Cardiovascular: absent: As Per HPI, Acrocyanosis, Chest Pain, Chest Pain at Rest , Chest Pain with Activity, Claudication, Diaphoresis, Dyspnea, Dyspnea on Exertion, Edema, Irregular Heart Rhythm, Pain Radiating to Arm/Neck/Jaw, Leg Edema, Leg Ulcers, Lightheadedness, Orthopnea, Palpitations, Paroxysmal Nocturnal Dyspnea, Pedal Edema, Radiating Pain, Rapid Heart Rate, Slow Heart Rate, Syncope, Other - Respiratory Respiratory: absent: As Per HPI, Cough, Dyspnea, Hemoptysis, Dyspnea on Exertion , Wheezing, Snoring, Stridor, Pain on Inspiration, Chest Congestion, Excessive Mucous Production, Change in Mucous Color, Pain with Coughing, Other - Gastrointestinal Gastrointestinal: absent: As Per HPI, Abdominal Pain, Belching, Bloating, Change in Bowel Habits, Change in Stool Character, Coffee Ground Emesis, Constipation, Cramping, Diarrhea, Dyspepsia, Dysphagia, Early Satiety, Excessive Flatus, Fecal Incontinence, Heartburn, Hematemesis, Hematochezia, Loose Stools, Melena, Nausea, Odynophagia, Temesmus, Vomiting, Other - Genitourinary Genitourinary: As Per HPI - Musculoskeletal Musculoskeletal: absent: As Per HPI, Abnormal Gait, Arthralgias, Atrophy, Back Pain, Deformity, Joint Swelling, Limited Range of Motion, Loss of Height, Muscle Cramps, Muscle Weakness, Myalgias, Neck Pain, Numbness, Radiating Pain into Limb, Stiffness, Tingling, Other - Integumentary Integumentary: absent: As Per HPI, Acne, Alopecia, Bleeding Lesions, Change in Hair, Change in Nails, Change in Pigmentation, Changing Lesions, Dry Skin, Erythema, Furuncle, Hirsutism, Lesions, New Lesions, Non-Healing Lesions, Photosensitivity, Pruritus, Rash, Skin Pain, Skin Ulcer, Sores, Striae, Swelling , Unusual Bruising, Wounds, Jaundice, Other - Neurological Neurological: As Per HPI - Psychiatric Psychiatric: absent: As Per HPI, Abnormal Sleep Pattern, Anhedonia, Anxiety, Auditory Hallucinations, Behavioral Changes, Change in Appetite, Change in Libido, Confusion, Depression, Difficulty Concentrating, Hallucinations, Homicidal Ideation, Hopelessness, Irritability, Memory Loss, Mood Swings, Panic Attacks, Paranoia, Suicidal Ideation, Visual Hallucinations, Tactile Hallucinations, Other - Endocrine Endocrine: absent: As Per HPI, Change in Body Appearance, Change in Libido, Cold Intolorance, Deepening of Voice, Excessive Sweating, Fatigue, Flushing, Heat Intolorance, Increase in Ring/Shoe/Hat Size, Palpitations, Polydipsia, Polyphagia, Polyuria, Other - Hematologic/Lymphatic Hematologic: absent: As Per HPI, Easy Bleeding, Easy Bruising, Lymphadenopathy, Other Past Patient History - Infectious Disease Hx of Infectious Diseases: VRE - Past Medical History & Family History Past Medical History?: Yes - Past Social History Smoking Status: Never Smoked - CARDIAC Hx Hypertension: Yes - PULMONARY Hx Respiratory Disorders: No - NEUROLOGICAL Hx 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) - HEENT Hx HEENT Problems: No - RENAL Hx Chronic Kidney Disease: Yes Date of Last Dialysis Treatment: 12/03/17 - ENDOCRINE/METABOLIC Hx Endocrine Disorders: No - HEMATOLOGICAL/ONCOLOGICAL Hx Blood Disorders: No - INTEGUMENTARY Hx Dermatological Problems: Yes Hx Eczema: Yes - MUSCULOSKELETAL/RHEUMATOLOGICAL Hx Musculoskeletal Disorders: No Hx Falls: Yes - GASTROINTESTINAL Hx Gastrointestinal Disorders: No - GENITOURINARY/GYNECOLOGICAL Hx Genitourinary Disorders: Yes Other/Comment: REYES - PSYCHIATRIC Hx Substance Use: No - SURGICAL HISTORY Hx Vascular Access Device: Yes Other/Comment: CYSTOSCOPY. NEPHROSTOMY TUBES, ROWDY. - ANESTHESIA Hx Anesthesia: Yes Hx Anesthesia Reactions: No Hx Malignant Hyperthermia: No Meds Allergies/Adverse Reactions: Allergies Allergy/AdvReac Type Severity Reaction Status Date / Time No Known Allergies Allergy Verified 12/03/17 22:56 - Medications Medications: Current Medications Carvedilol (Coreg) 3.125 mg PO MWF [facility] Famotidine (Pepcid) 20 mg PO DAILY [facility] Last Admin: 12/06/17 08:59 Dose: 20 mg Ferrous Gluconate (Fergon) 324 mg PO TID [facility] Last Admin: 12/06/17 13:04 Dose: 324 mg Vitamin B Complex/Vit C/Folic Acid (Nephro-Robel) 1 tab PO DAILY [facility] Last Admin: 12/06/17 08:59 Dose: 1 tab Physical Exam - Constitutional Appears: Non-toxic, Chronically Ill - Head Exam Head Exam: NORMOCEPHALIC - Eye Exam Eye Exam: absent: Scleral icterus - ENT Exam ENT Exam: Mucous Membranes Dry - Neck Exam Neck exam: Negative for: Lymphadenopathy - Respiratory Exam Respiratory Exam: Decreased Breath Sounds, Clear to Auscultation Bilateral - Cardiovascular Exam Cardiovascular Exam: REGULAR RHYTHM, +S1, +S2 - GI/Abdominal Exam GI & Abdominal Exam: Diminished Bowel Sounds, Soft. absent: Tenderness - Rectal Exam Rectal Exam: Deferred - Exam Exam: NORMAL INSPECTION - Extremities Exam Extremities exam: Negative for: pedal edema - Back Exam Back exam: absent: CVA tenderness (L), CVA tenderness (R), paraspinal tenderness - Neurological Exam Neurological exam: Alert, CN II-XII Intact - Psychiatric Exam Psychiatric exam: Anxious - Skin Skin Exam: Dry Results - Vital Signs Recent Vital Signs: Last Vital Signs Temp 97.3 F L 12/06/17 08:45 Pulse 71 12/06/17 08:45 Resp 20 12/06/17 08:45 BP 77/50 L 12/06/17 08:45 Pulse Ox 100 12/06/17 08:45 - Labs Result Diagrams: 12/05/17 07:51 12/05/17 07:51 Assessment & Plan (1) Down syndrome Status: Acute (2) ESRD (end stage renal disease) on dialysis Status: Acute (3) UTI (urinary tract infection) Status: Acute - Assessment and Plan (Free Text) Assessment: rx in progress await HELADIO aguilar
--- NOTE | 2017-12-06 16:21 | PN ---
DATE: 12/05/2017 SUBJECTIVE: The patient is waiting for urine cultures. The patient is afebrile; however, there is a history of VRE in the past. The patient is normally agitated, mother on the bedside. No signs of distress. PHYSICAL EXAMINATION: VITAL SIGNS: Blood pressure 112/69, pulse 91, respiratory rate 20, temperature 98.3. LUNGS: Clear. CVS: S1, S2, regular. ABDOMEN: Soft. ASSESSMENT: 1. Chronic kidney disease, on hemodialysis. 2. Down syndrome. 3. Urinary tract infection, rule out septicemia. PLAN: ID consult. Antibiotics. Monitor patient. Víctor Goldberg MD
--- NOTE | 2017-12-06 23:37 | CP.PCM.PN ---
Objective - Vital Signs/Intake and Output Vital Signs (last 24 hours): Temp Pulse Resp BP Pulse Ox 98.6 F 65 20 90/57 L 95 12/06/17 16:00 12/06/17 16:00 12/06/17 16:00 12/06/17 16:00 12/06/17 16:00 Intake and Output: 12/06/17 12/07/17 18:59 06:59 Intake Total 450 Balance 450 - Medications Medications: Current Medications Carvedilol (Coreg) 3.125 mg [place] [facility]amotidine (Pepcid) 20 mg PO DAILY [facility] Last Admin: 12/06/17 08:59 Dose: 20 mg Ferrous Gluconate (Fergon) 324 mg PO TID [facility] Last Admin: 12/06/17 17:40 Dose: 324 mg Vitamin B Complex/Vit C/Folic Acid (Nephro-Robel) 1 tab PO DAILY [facility] Last Admin: 12/06/17 08:59 Dose: 1 tab - Labs Labs: 12/05/17 07:51 12/05/17 07:51 PT 24.2 SECONDS (9.7-12.2) H 12/04/17 08:32 INR 2.2 12/04/17 08:32
--- NOTE | 2017-12-07 05:20 | PN ---
DATE: 12/06/2017 SUBJECTIVE: The patient is afebrile. Seen by ID. No nausea or vomiting. The patient is being seen by Urology. PHYSICAL EXAMINATION: LUNGS: Clear. CVS: S1, S2 are regular. ABDOMEN: Soft. ASSESSMENT: 1. Urinary tract infection. 2. Obstructive uropathy. 3. Down syndrome. PLAN: Antibiotics. Monitor the patient. Víctor Goldberg MD
[2017-12-07 08:21] LABS: INR 1.2
[2017-12-07 08:30] LABS: PROTHROMBIN TIME 13.5 SECONDS (9.7-12.2)
[2017-12-07] MEDS: Multivitamin Vitamin B Complex (Nephro-Vite) Tab PO SCH (09:34)
--- NOTE | 2017-12-07 12:27 | CP.PCM.PN ---
Subjective - Date & Time of Evaluation Date of Evaluation: 12/07/17 Time of Evaluation: 12:26 - Subjective Subjective: Nephrology Consultation Note: Assessment: stable UTI with VRE ESRD on HD via permacath (TTS) hx of b/l massive hydronephrosis and loss of renal cortex s/p b/l nephrostomy left femoral DVT. neg for HIT/hypercoag work up Anemia, hx of MR vit D def with secondary hyperparathyroidism chronic systolic CHF with LVEF 35% Plan Plan for dialysis tomorrow as TTS schedule. continue with nephrovite 1 tab/day continue with low dose coreg (changed to MWF schedule) as tolerated by BP for his CHF hx, not on RAAS chaitanya due to low BP urology and ID consult appreciated pt on systemic a/c with oral coumadin last Hb 11.4 hence not on WILBER outpt PTH and Phos under control pt planned for nephrostomy tube change by urology today Dose meds/antibiotics for dialysis status. Avoid fleets enema/magnesium based laxatives. Avoid nephrotoxins/NSAIDs Glycemic control Further work up/management as per primary team. Thanks for allowing me to participate in care of your patient. Will follow patient with you. Please call if any Qs. had d/w family Dr Phillip Dixon Office: [phone] CC: unable to obtain reason for consult; ESRD HPI: Pt is a 27 M with MR and chronic obstructive uropathy and progressive CKD as a result of obstruction, now ESRD on HD (TTS) @ [place] unit, CHF, DVT came with MDR Bacteria in urine renal consult for ESRD management ROS: pt unable to provide due to MR. overnight events noted. per mother, pt is doing better, happy and eating well Physical Examination: General Appearance: Comfortable, in no acute respiratory distress Vitals reviewed and noted as below Head; Atraumatic, normocephalic ENT: no ulcers no thrush. Tongue is midline. Oropharynx: no rash or ulcers. EYES: Pupils are equal, round and reactive to light accommodation. Eye muscles and extraocular movement intact. Sclera is anicteric. Neck; supple no lymphadenopathy, no thyromegaly or bruit Lungs: Normal respiratory rate/effort. Breath sounds bilateral equal and clear Heart: Normal rate. s1s2 normal. No rub or gallop. Extremities: no edema. No varicose veins Neurological: Patient is alert, awake, has severe MR, non communicative, non verbal Skin: Warm and dry. Normal turgor. No rash. Palpitation: Normal elasticity for age Abdomen: unable as pt not allowing Psych: no insight MSK: no joint tenderness or swelling. Digits and nails normal, no deformity : has nephrostomy tubes draining urine access: permacath Labs/imaging reviewed. Past medical history, past surgical history, family history, social history, allergy reviewed and noted as below Family hx: no hx of CKD. Rest non-contributory Objective - Vital Signs/Intake and Output Vital Signs (last 24 hours): Temp Pulse Resp BP Pulse Ox 97.6 F 88 20 95/68 L 100 12/07/17 07:53 12/07/17 07:53 12/07/17 07:53 12/07/17 07:53 12/07/17 07:53 Intake and Output: 12/07/17 12/07/17 06:59 18:59 Output Total 800 Balance -800 - Medications Medications: Current Medications Carvedilol (Coreg) 3.125 mg PO MWF [facility] Last Admin: 12/07/17 09:35 Dose: Not Given Famotidine (Pepcid) 20 mg PO DAILY [facility] Last Admin: 12/07/17 09:34 Dose: 20 mg Ferrous Gluconate (Fergon) 324 mg PO TID [facility] Last Admin: 12/07/17 09:34 Dose: 324 mg Vitamin B Complex/Vit C/Folic Acid (Nephro-Robel) 1 tab PO DAILY [facility] Last Admin: 12/07/17 09:34 Dose: 1 tab - Labs Labs: 12/05/17 07:51 12/07/17 08:02 PT 13.5 SECONDS (9.7-12.2) H D 12/07/17 08:02 INR 1.2 D 12/07/17 08:02
--- NOTE | 2017-12-07 12:51 | CP.PCM.PN ---
Subjective - Date & Time of Evaluation Date of Evaluation: 12/07/17 Time of Evaluation: 08:00 - Subjective Subjective: afeb on IV rx await nephrostomy tube change Objective - Vital Signs/Intake and Output Vital Signs (last 24 hours): Temp Pulse Resp BP Pulse Ox 97.6 F 88 20 95/68 L 100 12/07/17 07:53 12/07/17 07:53 12/07/17 07:53 12/07/17 07:53 12/07/17 07:53 Intake and Output: 12/07/17 12/07/17 06:59 18:59 Output Total 800 Balance -800 - Medications Medications: Current Medications Carvedilol (Coreg) 3.125 mg PO MWF [facility] Last Admin: 12/07/17 09:35 Dose: Not Given Famotidine (Pepcid) 20 mg PO DAILY [facility] Last Admin: 12/07/17 09:34 Dose: 20 mg Ferrous Gluconate (Fergon) 324 mg PO TID [facility] Last Admin: 12/07/17 09:34 Dose: 324 mg Vitamin B Complex/Vit C/Folic Acid (Nephro-Robel) 1 tab PO DAILY [facility] Last Admin: 12/07/17 09:34 Dose: 1 tab - Labs Labs: 12/05/17 07:51 12/07/17 08:02 PT 13.5 SECONDS (9.7-12.2) H D 12/07/17 08:02 INR 1.2 D 12/07/17 08:02 - Constitutional Appears: Non-toxic - Head Exam Head Exam: NORMOCEPHALIC - Eye Exam Eye Exam: PERRL - ENT Exam ENT Exam: Mucous Membranes Dry - Neck Exam Neck Exam: absent: Lymphadenopathy - Respiratory Exam Respiratory Exam: Decreased Breath Sounds - Cardiovascular Exam Cardiovascular Exam: REGULAR RHYTHM - GI/Abdominal Exam GI & Abdominal Exam: Distended - Rectal Exam Rectal Exam: Deferred Assessment and Plan (1) Down syndrome Status: Acute (2) ESRD (end stage renal disease) on dialysis Status: Acute (3) UTI (urinary tract infection) Status: Acute - Assessment and Plan (Free Text) Assessment: UTI with VRE ESRD on HD via permacath (TTS) hx of b/l massive hydronephrosis and loss of renal cortex s/p b/l nephrostomy left femoral DVT. neg for HIT/hypercoag work up Anemia, hx of MR vit D def with secondary hyperparathyroidism chronic systolic CHF with LVEF 35%
[2017-12-07] MEDS ORDERED: Iohexol 240 (50 ml) ONE (15:03)
[2017-12-07] MEDS ORDERED: cefTRIAXone IV 1 gm in Dextros 50 ML IVPB ONE (15:03)
[2017-12-07] MEDS ORDERED: Etomidate 20 mg/10ml Inj IV ONE (16:17)
[2017-12-07] MEDS ORDERED: Sodium Chloride 0.9% 250 ML IV ONE (17:00)
--- NOTE | 2017-12-07 18:31 | RAD ---
HISTORY: BILAT RETRO/CHANGE OF BILAT URETRAL STENT COMPARISON: Abdominal radiographs dated 12/04/2017. FINDINGS: BOWEL: Normal. No obstruction. No free air. BONES: Normal. OTHER FINDINGS: Bilateral double-J ureteral stents redemonstrated. IMPRESSION: No active disease.
--- NOTE | 2017-12-07 18:52 | RAD ---
Date of service: 12/07/2017 PROCEDURE: HISTORY: CHANGE OF BILAT URETERAL STENTS COMPARISON: None TECHNIQUE: Standard protocol for this study/examination. FINDINGS: Total fluoroscopic time (continuous mode) utilized during the procedure (seconds) 10.9. IMPRESSION: Dose report: 0.1657 DLP (mGy-cm)
--- NOTE | 2017-12-07 23:46 | CP.PCM.PN ---
Subjective - Date & Time of Evaluation Date of Evaluation: 12/07/17 Time of Evaluation: 19:00 - Subjective Subjective: Pt seen and examined at bedside Objective - Vital Signs/Intake and Output Vital Signs (last 24 hours): Temp Pulse Resp BP Pulse Ox 98 F 70 20 116/74 97 12/07/17 19:43 12/07/17 19:43 12/07/17 19:43 12/07/17 19:43 12/07/17 19:43 Intake and Output: 12/07/17 12/08/17 18:59 06:59 Intake Total 450 Output Total 60 150 Balance 390 -150 - Medications Medications: Current Medications Carvedilol (Coreg) 3.125 mg PO MWF [facility] Last Admin: 12/07/17 09:35 Dose: Not Given Famotidine (Pepcid) 20 mg PO DAILY [facility] Last Admin: 12/07/17 09:34 Dose: 20 mg Ferrous Gluconate (Fergon) 324 mg PO TID [facility] Last Admin: 12/07/17 17:50 Dose: Not Given Vitamin B Complex/Vit C/Folic Acid (Nephro-Robel) 1 tab PO DAILY [facility] Last Admin: 12/07/17 09:34 Dose: 1 tab - Labs Labs: 12/05/17 07:51 12/07/17 08:02 PT 13.5 SECONDS (9.7-12.2) H D 12/07/17 08:02 INR 1.2 D 12/07/17 08:02
[2017-12-08 09:06] LABS: BASO # 0.1 K/uL (0.0-0.2); BASO % 1.1 % (0.0-2.0); EOS # 0.1 K/uL (0.0-0.7); EOS % 0.9 % (0.0-4.0); HEMOGLOBIN 10.6 g/dL (12.0-18.0); LYMPH # 0.9 K/uL (1.0-4.3); LYMPH % 15.7 % (20.0-40.0); MEAN CELL VOLUME 92.2 fL (80.0-94.0); MEAN CORPUSCULAR HEMOGLOBIN 30.9 pg (27.0-31.0); MEAN CORPUSCULAR HGB CONC 33.5 g/dL (33.0-37.0); MEAN PLATELET VOLUME 7.4 fL (7.2-11.7); MONO # 0.5 K/uL (0.0-0.8); MONO % 9.2 % (0.0-10.0); NEUT # 4.3 K/uL (1.8-7.0); NEUT % 73.1 % (50.0-75.0); NRBC % 0.1 % (0.0-2.0); RBC 3.41 Mil/uL (4.40-5.90); RED CELL DISTRIBUTION WIDTH 16.2 % (11.5-14.5); WHITE BLOOD COUNT 5.8 K/uL (4.8-10.8)
[2017-12-08 09:22] LABS: ALB/GLOB RATIO 1.1 (1.0-2.1); ALBUMIN 3.8 g/dL (3.5-5.0); CALCIUM 8.3 mg/dl (8.6-10.4)
[2017-12-08] MEDS: Multivitamin Vitamin B Complex (Nephro-Vite) Tab PO SCH (09:42)
--- NOTE | 2017-12-08 10:40 | CP.PCM.PN ---
Subjective - Date & Time of Evaluation Date of Evaluation: 12/08/17 Time of Evaluation: 09:00 - Subjective Subjective: no fever or leukocytosis gu eval in prgress cultures noted Objective - Vital Signs/Intake and Output Vital Signs (last 24 hours): Temp Pulse Resp BP Pulse Ox 97.2 F L 79 16 121/70 98 12/08/17 09:20 12/08/17 09:20 12/08/17 09:20 12/08/17 10:20 12/08/17 08:00 Intake and Output: 12/08/17 12/08/17 06:59 18:59 Output Total 400 Balance -400 - Medications Medications: Current Medications Carvedilol (Coreg) 3.125 mg PO MWF [facility] Last Admin: 12/07/17 09:35 Dose: Not Given Famotidine (Pepcid) 20 mg PO DAILY [facility] Last Admin: 12/08/17 09:42 Dose: Not Given Ferrous Gluconate (Fergon) 324 mg PO TID [facility] Last Admin: 12/08/17 09:42 Dose: Not Given Vitamin B Complex/Vit C/Folic Acid (Nephro-Robel) 1 tab PO DAILY [facility] Last Admin: 12/08/17 09:42 Dose: Not Given - Labs Labs: 12/08/17 08:53 12/08/17 08:53 PT 13.5 SECONDS (9.7-12.2) H D 12/07/17 08:02 INR 1.2 D 12/07/17 08:02 - Constitutional Appears: Non-toxic, Chronically Ill - Head Exam Head Exam: NORMOCEPHALIC - Eye Exam Eye Exam: PERRL - ENT Exam ENT Exam: Mucous Membranes Dry - Neck Exam Neck Exam: absent: Lymphadenopathy - Respiratory Exam Respiratory Exam: Decreased Breath Sounds - Cardiovascular Exam Cardiovascular Exam: REGULAR RHYTHM - GI/Abdominal Exam GI & Abdominal Exam: Distended, Soft - Rectal Exam Rectal Exam: Deferred - Exam Exam: NORMAL INSPECTION - Extremities Exam Extremities Exam: absent: Pedal Edema - Back Exam Back Exam: absent: CVA tenderness (L), CVA tenderness (R) Assessment and Plan (1) Down syndrome Status: Acute (2) ESRD (end stage renal disease) on dialysis Status: Acute (3) UTI (urinary tract infection) Status: Acute
--- NOTE | 2017-12-08 12:42 | CP.PCM.PN ---
Subjective - Date & Time of Evaluation Date of Evaluation: 12/08/17 Time of Evaluation: 12:41 - Subjective Subjective: Nephrology Consultation Note: Assessment: stable UTI with VRE ESRD on HD via permacath (TTS) hx of b/l massive hydronephrosis and loss of renal cortex s/p b/l nephrostomy left femoral DVT. neg for HIT/hypercoag work up Anemia, hx of MR vit D def with secondary hyperparathyroidism chronic systolic CHF with LVEF 35% s/p bilateral ureteral stents 12/08/17 Plan Plan for dialysis today as TTS schedule. continue with nephrovite 1 tab/day continue with low dose coreg (changed to MWF schedule) as tolerated by BP for his CHF hx, not on RAAS chaitanya due to low BP urology and ID consult appreciated pt on systemic a/c with oral coumadin last Hb 11.4 hence not on WILBER outpt PTH and Phos under control pt stable for d/c from renal perspective when planned Dose meds/antibiotics for dialysis status. Avoid fleets enema/magnesium based laxatives. Avoid nephrotoxins/NSAIDs Glycemic control Further work up/management as per primary team. Thanks for allowing me to participate in care of your patient. Will follow patient with you. Please call if any Qs. had d/w family and team Dr Phillip Dixon Office: [phone] CC: unable to obtain reason for consult; ESRD HPI: Pt is a 27 M with MR and chronic obstructive uropathy and progressive CKD as a result of obstruction, now ESRD on HD (TTS) @ [place] unit, CHF, DVT came with MDR Bacteria in urine renal consult for ESRD management ROS: pt unable to provide due to MR. overnight events noted. per mother, pt is doing better, happy and eating well Physical Examination: seen on HD General Appearance: Comfortable, in no acute respiratory distress Vitals reviewed and noted as below Head; Atraumatic, normocephalic ENT: no ulcers no thrush. Tongue is midline. Oropharynx: no rash or ulcers. EYES: Pupils are equal, round and reactive to light accommodation. Eye muscles and extraocular movement intact. Sclera is anicteric. Neck; supple no lymphadenopathy, no thyromegaly or bruit Lungs: Normal respiratory rate/effort. Breath sounds bilateral equal and clear Heart: Normal rate. s1s2 normal. No rub or gallop. Extremities: no edema. No varicose veins Neurological: Patient is alert, awake, has severe MR, non communicative, non verbal Skin: Warm and dry. Normal turgor. No rash. Palpitation: Normal elasticity for age Abdomen: unable as pt not allowing Psych: no insight MSK: no joint tenderness or swelling. Digits and nails normal, no deformity : has nephrostomy tubes draining urine access: permacath Labs/imaging reviewed. Past medical history, past surgical history, family history, social history, allergy reviewed and noted as below Family hx: no hx of CKD. Rest non-contributory Objective - Vital Signs/Intake and Output Vital Signs (last 24 hours): Temp Pulse Resp BP Pulse Ox 97.2 F L 79 16 95/68 L 98 12/08/17 09:20 12/08/17 09:20 12/08/17 09:20 12/08/17 11:50 12/08/17 08:00 Intake and Output: 12/08/17 12/08/17 06:59 18:59 Output Total 400 Balance -400 - Medications Medications: Current Medications Carvedilol (Coreg) 3.125 mg PO MWF [facility] Last Admin: 12/07/17 09:35 Dose: Not Given Famotidine (Pepcid) 20 mg PO DAILY [facility] Last Admin: 12/08/17 09:42 Dose: Not Given Ferrous Gluconate (Fergon) 324 mg PO TID [facility] Last Admin: 12/08/17 09:42 Dose: Not Given Vitamin B Complex/Vit C/Folic Acid (Nephro-Robel) 1 tab PO DAILY [facility] Last Admin: 12/08/17 09:42 Dose: Not Given - Labs Labs: 12/08/17 08:53 12/08/17 08:53 PT 13.5 SECONDS (9.7-12.2) H D 12/07/17 08:02 INR 1.2 D 12/07/17 08:02
[2017-12-08 13:03] VITALS: RESP 18; TEMP 98.7; O2SAT 97
[2017-12-08 13:14] VITALS: BP 118/73; PULSE 85
--- NOTE | 2017-12-08 14:33 | CP.PCM.PN ---
Subjective - Date & Time of Evaluation Date of Evaluation: 12/08/17 Time of Evaluation: 14:32 Objective - Vital Signs/Intake and Output Vital Signs (last 24 hours): Temp Pulse Resp BP Pulse Ox 98.7 F 98 H 18 106/68 97 12/08/17 13:03 12/08/17 13:03 12/08/17 13:03 12/08/17 13:03 12/08/17 13:03 Intake and Output: 12/08/17 12/08/17 06:59 18:59 Output Total 400 Balance -400 - Medications Medications: Current Medications Carvedilol (Coreg) 3.125 mg PO MWF [facility] Last Admin: 12/07/17 09:35 Dose: Not Given Famotidine (Pepcid) 20 mg PO DAILY [facility] Last Admin: 12/08/17 09:42 Dose: Not Given Ferrous Gluconate (Fergon) 324 mg PO TID [facility] Last Admin: 12/08/17 13:34 Dose: 324 mg Vitamin B Complex/Vit C/Folic Acid (Nephro-Robel) 1 tab PO DAILY [facility] Last Admin: 12/08/17 09:42 Dose: Not Given - Labs Labs: 12/08/17 08:53 12/08/17 08:53 PT 13.5 SECONDS (9.7-12.2) H D 12/07/17 08:02 INR 1.2 D 12/07/17 08:02 Assessment and Plan - Assessment and Plan (Free Text) Assessment: FOLLOW UP WITH DR LUGO IN HIS OFFICE 1-2 WEEK ---CALL FOR APPOINTMENT CONTINUE ALL YOUR HOME MEDICATION NEW PRESCRIPTIN GIVEN ZYVOX 600 MG PO Q12 H FOR 7 DAYS PER ID (DR RICK) ACTIVITY TOLERATED HEMODIALYSIS SCHEDULE CALL DR LUGO OR GO THE EMERGENCY ROOM IF SYMPTOMS RETURN OR WORSENING
--- NOTE | 2017-12-08 23:44 | CP.PCM.DIS ---
Provider - Provider Date of Admission: 12/05/17 15:31 Attending physician: Víctor Goldberg MD Primary care physician: Kala Ham MD Time Spent in preparation of Discharge (in minutes): 26 Diagnosis - Discharge Diagnosis (1) Down syndrome Status: Acute (2) ESRD (end stage renal disease) on dialysis Status: Acute (3) UTI (urinary tract infection) Status: Acute Hospital Course - Lab Results Lab Results: Micro Results 12/05/17 02:13 Urine,Nick Urine Culture - Final No Growth (<1,000 CFU/ML) Most Recent Lab Values WBC 5.8 K/uL (4.8-10.8) 12/08/17 08:53 RBC 3.41 Mil/uL (4.40-5.90) L 12/08/17 08:53 Hgb 10.6 g/dL (12.0-18.0) L 12/08/17 08:53 Hct 31.5 % (35.0-51.0) L 12/08/17 08:53 MCV 92.2 fL (80.0-94.0) 12/08/17 08:53 MCH 30.9 pg (27.0-31.0) 12/08/17 08:53 MCHC 33.5 g/dL (33.0-37.0) 12/08/17 08:53 RDW 16.2 % (11.5-14.5) H 12/08/17 08:53 Plt Count 234 K/uL (130-400) 12/08/17 08:53 MPV 7.4 fL (7.2-11.7) 12/08/17 08:53 Neut % (Auto) 73.1 % (50.0-75.0) 12/08/17 08:53 Lymph % (Auto) 15.7 % (20.0-40.0) L 12/08/17 08:53 [place] % (Auto) 9.2 % (0.0-10.0) 12/08/17 08:53 Eos % (Auto) 0.9 % (0.0-4.0) 12/08/17 08:53 Baso % (Auto) 1.1 % (0.0-2.0) 12/08/17 08:53 Neut # (Auto) 4.3 K/uL (1.8-7.0) 12/08/17 08:53 Lymph # (Auto) 0.9 K/uL (1.0-4.3) L 12/08/17 08:53 [place] # (Auto) 0.5 K/uL (0.0-0.8) 12/08/17 08:53 Eos # (Auto) 0.1 K/uL (0.0-0.7) 12/08/17 08:53 Baso # (Auto) 0.1 K/uL (0.0-0.2) 12/08/17 08:53 PT 13.5 SECONDS (9.7-12.2) H D 12/07/17 08:02 INR 1.2 D 12/07/17 08:02 Sodium 142 mmol/L (132-148) 12/08/17 08:53 Potassium 4.3 mmol/L (3.6-5.2) 12/08/17 08:53 Chloride 103 mmol/L (98-107) 12/08/17 08:53 Carbon Dioxide 26 mmol/L (22-30) 12/08/17 08:53 Anion Gap 17 (10-20) 12/08/17 08:53 BUN 70 mg/dL (9-20) H 12/08/17 08:53 Creatinine 6.5 mg/dL (0.8-1.5) H 12/08/17 08:53 Est GFR ( Amer) 13 12/08/17 08:53 Est GFR (Non-Af Amer) 10 12/08/17 08:53 Random Glucose 90 mg/dL (75-110) 12/08/17 08:53 Calcium 8.3 mg/dl (8.6-10.4) L 12/08/17 08:53 Total Bilirubin 0.7 mg/dL (0.2-1.3) 12/08/17 08:53 AST 39 U/L (17-59) 12/08/17 08:53 ALT 61 U/L (21-72) 12/08/17 08:53 Alkaline Phosphatase 56 U/L (38-126) 12/08/17 08:53 Total Protein 7.3 g/dL (6.3-8.3) 12/08/17 08:53 Albumin 3.8 g/dL (3.5-5.0) 12/08/17 08:53 Globulin 3.6 gm/dL (2.2-3.9) 12/08/17 08:53 Albumin/Globulin Ratio 1.1 (1.0-2.1) 12/08/17 08:53 Urine Color Yellow (YELLOW) 12/05/17 02:13 Urine Clarity Hazy (Clear) 12/05/17 02:13 Urine pH 6.0 (5.0-8.0) 12/05/17 02:13 Ur Specific [place] 1.009 (1.003-1.030) 12/05/17 02:13 Urine Protein 1+ mg/dL (NEGATIVE) H 12/05/17 02:13 Urine Glucose (UA) Normal mg/dL (Normal) 12/05/17 02:13 Urine Ketones Negative mg/dL (NEGATIVE) 12/05/17 02:13 Urine Blood Negative (NEGATIVE) 12/05/17 02:13 Urine Nitrate Negative (NEGATIVE) 12/05/17 02:13 Urine Bilirubin Negative (NEGATIVE) 12/05/17 02:13 Urine Urobilinogen Normal mg/dL (0.2-1.0) 12/05/17 02:13 Ur Leukocyte Esterase 3+ Anam/uL (Negative) H 12/05/17 02:13 Urine WBC (Auto) 88 /hpf (0-5) H 12/05/17 02:13 Urine RBC (Auto) 2 /hpf (0-3) 12/05/17 02:13 Ur Squamous Epith Cells 16 /hpf (0-5) H 12/05/17 02:13 Urine Bacteria Occ (<OCC) H 12/05/17 02:13 - Hospital Course Hospital Course: Pt was discharged today\ PO zyvox pt is stable, afberile, n shortnes of breath, nausea, vomitting Discharge Exam - Head Exam Head Exam: NORMOCEPHALIC Discharge Plan - Discharge Medications Prescriptions: Linezolid [Zyvox] 600 mg PO Q12H 7 Days tab - Follow Up Plan Condition: GOOD Disposition: HOME/ ROUTINE Instructions: End Stage Kidney Disease (DC), Dialysis and Diet, Urinary Tract Infection in Men (DC) Additional Instructions: FOLLOW UP WITH DR GOLDBERG IN HIS OFFICE 1-2 WEEK ---CALL FOR APPOINTMENT CONTINUE ALL YOUR HOME MEDICATION NEW PRESCRIPTIN GIVEN ZYVOX 600 MG PO Q12 H FOR 7 DAYS PER ID (DR KU) ACTIVITY TOLERATED HEMODIALYSIS SCHEDULE CALL DR GOLDBERG OR GO THE EMERGENCY ROOM IF SYMPTOMS RETURN OR WORSENING Referrals: Kala Ham MD [Primary Care Provider] - Víctor Goldberg MD [Staff Provider] - Mateusz Ku MD [Staff Provider] -
== END 2017-12-08 15:13 | disposition home or self-care (01) | DRG 689 ==
LOC: C.ER 22:50 → SUPCPDRO 22:50 → C.9E 23:28 → C.5S 12-04 00:20 → OBSVTOIN 12-05 15:31
PROVIDERS: ADMIT Internal Medicine; ATTEND Internal Medicine
PROC: 5A1D70Z Performance of Urinary Filtration, Intermittent, Less than 6 Hours Per Day (ICD-10-PCS; principal; 2017-12-08)
DX: N39.0 Urinary tract infection, site not specified (principal); N18.6 End stage renal disease; F84.0 Autistic disorder; I13.2 Hypertensive heart and chronic kidney disease with heart failure and with stage 5 chronic kidney disease, or end stage renal disease; I50.22 Chronic systolic (congestive) heart failure; N25.81 Secondary hyperparathyroidism of renal origin; Q90.9 Down syndrome, unspecified; B95.2 Enterococcus as the cause of diseases classified elsewhere; Z16.21 Resistance to vancomycin; Z99.2 Dependence on renal dialysis; E55.9 Vitamin D deficiency, unspecified; N13.30 Unspecified hydronephrosis; R31.9 Hematuria, unspecified

== ENCOUNTER 2018-01-08 14:14 | Inpatient (IN) | payer OTHER ==
[2018-01-08 14:18] VITALS: BMI 21.1
[2018-01-08 16:05] LABS: BASO # 0.1 K/uL (0.0-0.2); BASO % 1.2 % (0.0-2.0); EOS # 0.1 K/uL (0.0-0.7); EOS % 1.9 % (0.0-4.0); HEMOGLOBIN 11.1 g/dL (12.0-18.0); LYMPH # 1.6 K/uL (1.0-4.3); LYMPH % 35.8 % (20.0-40.0); MEAN CELL VOLUME 90.7 fL (80.0-94.0); MEAN CORPUSCULAR HEMOGLOBIN 31.2 pg (27.0-31.0); MEAN CORPUSCULAR HGB CONC 34.4 g/dL (33.0-37.0); MEAN PLATELET VOLUME 7.5 fL (7.2-11.7); MONO # 0.5 K/uL (0.0-0.8); MONO % 11.7 % (0.0-10.0); NEUT # 2.2 K/uL (1.8-7.0); NEUT % 49.4 % (50.0-75.0); NRBC % 0.2 % (0.0-2.0); RBC 3.55 Mil/uL (4.40-5.90); WHITE BLOOD COUNT 4.5 K/uL (4.8-10.8)
[2018-01-08 16:14] LABS: INR 2.5; PROTHROMBIN TIME 27.6 SECONDS (9.7-12.2)
[2018-01-08 16:33] LABS: ALBUMIN 4.1 g/dL (3.5-5.0); CALCIUM 8.4 mg/dl (8.6-10.4)
[2018-01-08 16:34] LABS: ALB/GLOB RATIO 0.9 (1.0-2.1)
[2018-01-08 17:35] LABS: URINE BACTERIA MOD (<OCC); URINE BILIRUBIN NEGATIVE (NEGATIVE); URINE BLOOD 2+ (NEGATIVE); URINE CLARITY Turbid (Clear); URINE COLOR Amber (YELLOW); URINE GLUCOSE (UA) NORMAL (Normal); URINE LEUKOCYTE ESTERASE 3+ Leu/uL (Negative); URINE PROTEIN 2+ mg/dL (NEGATIVE); URINE UROBILINOGEN NORMAL mg/dL (0.2-1.0); WBC CLUMPS MANY /hpf
--- NOTE | 2018-01-08 17:52 | C.PDOC ---
History Of Present Illness 27-year-old male, PMHx includes Down Syndrome and ESRD, presents to the emergency department with complaints of foul smelling urine, as per mom. Patient has a Hx of drug resistant UTI. Mom doesn't know what kind. Patient had a fever (101.6) yesterday . No other complaints at this time. Chief Complaint (Nursing): Fever History Per: Patient, Family (mom) History/Exam Limitations: no limitations Onset/Duration Of Symptoms: Days Current Symptoms Are (Timing): Still Present Past Medical History Reviewed: Historical Data, Nursing Documentation, Vital Signs Vital Signs: Last Vital Signs Temp 98.1 F 01/08/18 20:42 Pulse 95 H 01/08/18 20:42 Resp 18 01/08/18 20:42 BP 106/63 01/08/18 20:42 Pulse Ox 98 01/08/18 20:42 - Medical History PMH: HTN, Chronic Kidney Disease Surgical History: Denies: Pacemaker - [facility] Procedures (12/05/17) DILATION OF BILATERAL URETERS WITH INTRALUMINAL DEVICE, ENDO (12/05/17) DRAINAGE OF LEFT KIDNEY PELVIS WITH DRAIN DEV, PERC APPROACH (06/04/17) DRAINAGE OF R KIDNEY PELVIS WITH DRAIN DEV, PERC APPROACH (06/04/17) FLUOROSCOPY OF KIDNEY, URETER & BLADDER USING OTH CONTRAST (12/05/17) FLUOROSCOPY OF RIGHT JUGULAR VEINS, GUIDANCE (06/04/17) INSERT INFUSION DEV IN R INT JUGULAR VEIN, PERC (06/04/17) INSERTION OF INFUSION DEVICE INTO LOWER VEIN, PERC APPROACH (06/04/17) REMOVAL OF INTRALUMINAL DEVICE FROM URETER, ENDO (12/05/17) ULTRASONOGRAPHY OF LEFT LOWER EXTREMITY VEINS, GUIDANCE (06/04/17) ULTRASONOGRAPHY OF RIGHT JUGULAR VEINS, GUIDANCE (06/04/17) Family History: States: No Known Family Hx - Social History Hx Tobacco Use: No Hx Alcohol Use: No Hx Substance Use: No - Immunization History Hx Tetanus Toxoid Vaccination: No Hx Influenza Vaccination: No Hx Pneumococcal Vaccination: No Review Of Systems Constitutional: Positive for: Fever Gastrointestinal: Negative for: Nausea, Vomiting, Abdominal Pain Genitourinary: Positive for: Other (foul smelling urine) Musculoskeletal: Negative for: Back Pain Physical Exam - Physical Exam Appears: Non-toxic, No Acute Distress Skin: Normal Color, Warm, Dry, No Rash Head: Atraumatic, Normacephalic Eye(s): bilateral: Normal Inspection Nose: Normal Oral Mucosa: Moist Lips: Normal Appearing Neck: Normal ROM Cardiovascular: Rhythm Regular, No Murmur Respiratory: Normal Breath Sounds, No Accessory Muscle Use Gastrointestinal/Abdominal: Soft, No Tenderness Extremity: Normal ROM, No Deformity Neurological/Psych: Oriented x3, Normal Speech ED Course And Treatment - Laboratory Results Result Diagrams: 01/08/18 16:02 01/08/18 16:02 O2 Sat by Pulse Oximetry: 99 (RA) Pulse Ox Interpretation: Normal Disposition - Disposition Disposition: HOSPITALIZED Disposition Time: 17:00 Condition: STABLE - Clinical Impression Clinical Impression: ESRD (end stage renal disease) on dialysis, UTI (urinary tract infection) - Scribe Statement The provider has reviewed the documentation as recorded by the Scribe ([place]) All medical record entries made by the Scribe were at my direction and personally dictated by me. I have reviewed the chart and agree that the record accurately reflects my personal performance of the history, physical exam, medical decision making, and the department course for this patient. I have also personally directed, reviewed, and agree with the discharge instructions and disposition.
--- NOTE | 2018-01-08 19:38 | CP.PCM.HP ---
History of Present Illness - History of Present Illness History of Present Illness: COMPREHENSIVE HISTORY & PHYSICAL EXAM Patient is admitted from the emergency room with a temperature of 101F and recurrent UTI. HPI Patient has a history of Down syndrome and end-stage renal disease on hemodialysis. As per the chart in November 2017 patient had stent inserted in the ureters. Since then patient has been admitted 2 times with recurrent UTI and the last culture was VRE. Patient was sent home on by mouth Zyvox. As per the mother patient continued to have foul-smelling urine and high temperatures. Patient was advised to go to the hospital if above symptoms recur. PAST HIST. History of Down syndrome, chronic renal failure on hemodialysis, multiple procedures done on kidney in the past for nephrostomy stents. PERSONAL HIST: Smoking. N Alcohol. N Allergy N Travel_- . FAMILY HIST : ROS : Discussed with mother with the following symptoms Constitutional: Negative for weight change Eyes: Negative for redness, swelling , itching, discharge, vision changes, blurry vision, double vision, glaucoma, cataracts, Ears: Negative for hearing loss, ringing, , tinnitus, vertigo Nose: Negative for rhinorrhea, stuffiness, sniffing, itching, postnasal drip, discoloration, nasal congestion and epistaxis. Throat: Negative for throat clearing, sore throat, hoarseness, difficulty swallowing and difficulty speaking. Respiratory: Negative for cough, , sputum production, chest tightness, wheezing, pleuritic chest pain ,daytime somnolence, chronic cough, hemoptysis, snoring at night, Cardiovascular: Negative for chest pain, palpitations, orthopnea, PND, Edema of legs, leg cramps, angina, claudication, , irregular heartbeat, Neurology no gross motor or sensory deficits. Gastrointestinal: Negative for difficulty swallowing, diarrhea, constipation, black stools, rectal bleeding, nausea, flatulence, reflux, poor appetite, changes in bowel habits, abdominal pain Genitourinary frequent urination foul-smelling with lower abdominal discomfort. , frequent UTI, Psychiatric: Negative for depression, anxiety/panic, suicidal tendencies, Musculoskeletal: Negative for swollen joints, back pain, , neck pain, morning stiffness of joints, . Skin: Negative for rash, ulcers, itching, dry skin and pigmented lesions. P/E: Constitutional: Appears stated age and in no apparent distress. Head: Normocephalic. Ears: External ear canals patent without inflammation. Tympanic membranes intact with normal light reflex and landmark. Eyes: Pupils are central, bilaterally equal, symmetrical and reacts to light with normal movements and no icterus or pallor. Nose: External nares are patent. Mucosa is pink Mouth-Throat: Good general appearance and condition. No post-pharyngeal/oropharyngeal erythema and tonsillar hypertrophy. Good dental hygiene. Neck-Lymphatic: Neck is supple with normal ROM, no thyromegaly, lymph nodes or masses. JVD is normal with no carotid bruit. Lungs: Clear to percussion and auscultation with bilateral normal air entry. Cardiovascular: S1 and S2 are normal with no murmurs, gallops and rub. GI Exam: No hepatomegaly. Abdomen is soft and non-tender. No Organomegaly , masses or hernias are evident and bowel sounds are normal and active. Neurology: Higher function and all cranial nerves intact, with no gross motor or sensory deficit. Superficial and deep reflexes are normal with downwards planters. No cerebellar deficit with normal gait. Musculoskeletal: No tender spots with normal curvature of the spine with no swelling or restricted ROM of the small and large joints. Extremities: Homans sign absent. Intact pulses with no pitting edema, calf tenderness or skin color changes. Skin: No rash, eruptions or abnormal skin pigmentation LAB/RADIOLOGY: ASSESMENT : Recurrent UTI with 101F temperature recent history of VRE. Down syndrome. Chronic renal failure on hemodialysis. PLAN: We will consult with ID and plan the IV antibiotics septic workup and nephrology evaluation for continuation of dialysis. Present on Admission - Present on Admission Any Indicators Present on Admission: No Past Patient History - Infectious Disease Hx of Infectious Diseases: VRE - Past Medical History & Family History Past Medical History?: Yes - Past Social History Smoking Status: Never Smoked - CARDIAC Hx Hypertension: Yes Hx Pacemaker: No - PULMONARY Hx Respiratory Disorders: No - NEUROLOGICAL Hx 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) - HEENT Hx HEENT Problems: No - RENAL Hx Chronic Kidney Disease: Yes - ENDOCRINE/METABOLIC Hx Endocrine Disorders: No - HEMATOLOGICAL/ONCOLOGICAL Hx Blood Disorders: No - INTEGUMENTARY Hx Dermatological Problems: Yes Hx Eczema: Yes - MUSCULOSKELETAL/RHEUMATOLOGICAL Hx Musculoskeletal Disorders: No Hx Falls: Yes - GASTROINTESTINAL Hx Gastrointestinal Disorders: No - GENITOURINARY/GYNECOLOGICAL Hx Genitourinary Disorders: Yes Other/Comment: ERIC since jun 2017. last changed Jan 01, 2018 - PSYCHIATRIC Hx Substance Use: No - SURGICAL HISTORY Hx Surgeries: Yes Hx Vascular Access Device: Yes Other/Comment: CYSTOSCOPY. NEPHROSTOMY TUBES, ROWDY.- removed. kidney stent ? - ANESTHESIA Hx Anesthesia: Yes Hx Anesthesia Reactions: No Hx Malignant Hyperthermia: No Meds Allergies/Adverse Reactions: Allergies Allergy/AdvReac Type Severity Reaction Status Date / Time No Known Allergies Allergy Verified 01/08/18 14:17 Results - Vital Signs Recent Vital Signs: Last Vital Signs Temp 97.5 F L 01/08/18 14:18 Pulse 91 H 01/08/18 14:18 Resp 18 01/08/18 14:18 BP 94/57 L 01/08/18 14:18 Pulse Ox 99 01/08/18 17:53 - Labs Result Diagrams: 01/08/18 16:02 01/08/18 16:02 Labs: Laboratory Results - last 24 hr 01/08/18 01/08/18 01/08/18 16:02 16:02 16:02 WBC 4.5 L RBC 3.55 L Hgb 11.1 L Hct 32.2 L MCV 90.7 MCH 31.2 H MCHC 34.4 RDW 16.0 H Plt Count 259 MPV 7.5 Neut % (Auto) 49.4 L Lymph % (Auto) 35.8 [place] % (Auto) 11.7 H Eos % (Auto) 1.9 Baso % (Auto) 1.2 Neut # (Auto) 2.2 Lymph # (Auto) 1.6 [place] # (Auto) 0.5 Eos # (Auto) 0.1 Baso # (Auto) 0.1 PT 27.6 H INR 2.5 Sodium 139 Potassium 3.7 Chloride 92 L Carbon Dioxide 31 H Anion Gap 20 BUN 43 H Creatinine 6.9 H Est GFR ( Amer) 12 Est GFR (Non-Af Amer) 10 Random Glucose 80 Calcium 8.4 L Total Bilirubin 0.3 AST 33 ALT 57 Alkaline Phosphatase 72 Total Protein 8.5 H Albumin 4.1 Globulin 4.4 H Albumin/Globulin Ratio 0.9 L Urine Color Urine Clarity Urine pH Ur Specific [place] Urine Protein Urine Glucose (UA) Urine Ketones Urine Blood Urine Nitrate Urine Bilirubin Urine Urobilinogen Ur Leukocyte Esterase Urine WBC (Auto) Urine RBC (Auto) Urine WBC Clumps (Auto) Urine Bacteria 08/10/18 17:11 WBC RBC Hgb Hct MCV MCH MCHC RDW Plt Count MPV Neut % (Auto) Lymph % (Auto) [place] % (Auto) Eos % (Auto) Baso % (Auto) Neut # (Auto) Lymph # (Auto) [place] # (Auto) Eos # (Auto) Baso # (Auto) PT INR Sodium Potassium Chloride Carbon Dioxide Anion Gap BUN Creatinine Est GFR ( Amer) Est GFR (Non-Af Amer) Random Glucose Calcium Total Bilirubin AST ALT Alkaline Phosphatase Total Protein Albumin Globulin Albumin/Globulin Ratio Urine Color [place] Urine Clarity Turbid Urine pH 7.0 Ur Specific [place] 1.010 Urine Protein 2+ H Urine Glucose (UA) Normal Urine Ketones Negative Urine Blood 2+ H Urine Nitrate Negative Urine Bilirubin Negative Urine Urobilinogen Normal Ur Leukocyte Esterase 3+ H Urine WBC (Auto) 1486 H Urine RBC (Auto) 36 H Urine WBC Clumps (Auto) Many H Urine Bacteria Mod H
[2018-01-08] MEDS: Cefepime IV 1 gm in Dextrose 1 GM/50 ML BAG IVPB SCH (20:50)
--- NOTE | 2018-01-08 23:30 | CP.PCM.CON ---
History of Present Illness - History of Present Illness History of Present Illness: INFECTIOUS DISEASE CONSULT. HPI; 27-year-old male, PMHx includes Down Syndrome and ESRD ON HD SINCE , presents to the emergency department with complaints of foul smelling urine, as per mom. Patient has a Hx of drug resistant VRE UTI. Patient had a fever (101.6 ) yesterday . No other complaints at this time. PT NON VERBAL. HX OBTAINED FROM CHART/AND STAFF. PT HAS HX OF CHRONIC INDWELLING [place] CATHETER. INFECTIOUS DISEASE CONSULT REQUESTED BY PMD FOR SEPSIS ? PATIENT HAS HISTORY BILATERAL STENTS INSERTED IN THE URETER IN november 2017. sINCE THEN HE HAS BEEN ADMITTED 2 TIMES WITH RECURRENT uti AND CULTURE REPORTED WAS VRE. pATIENT WAS SENT HOME ON ORAL zYVOX. aS PER THE MOTHER PATIENT CONTINUED TO HAVE FOUL-SMELLING URINE AND ELEVATED TEMPERATURES. SHE WAS ADVISED TO GO TO THE HOSPITAL IF THE ABOVE SYMPTOMS RECUR. 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 neg for HIT/hypercoag work up Anemia, hx of MR vit D def with secondary hyperparathyroidism chronic systolic CHF with LVEF 35% - [facility] Procedures (12/05/17) DILATION OF BILATERAL URETERS WITH INTRALUMINAL DEVICE, ENDO (12/05/17) DRAINAGE OF LEFT KIDNEY PELVIS WITH DRAIN DEV, PERC APPROACH (06/04/17) DRAINAGE OF R KIDNEY PELVIS WITH DRAIN DEV, PERC APPROACH (06/04/17) FLUOROSCOPY OF KIDNEY, URETER & BLADDER USING OTH CONTRAST (12/05/17) FLUOROSCOPY OF RIGHT JUGULAR VEINS, GUIDANCE (06/04/17) INSERT INFUSION DEV IN R INT JUGULAR VEIN, PERC (06/04/17) INSERTION OF INFUSION DEVICE INTO LOWER VEIN, PERC APPROACH (06/04/17) REMOVAL OF INTRALUMINAL DEVICE FROM URETER, ENDO (12/05/17) ULTRASONOGRAPHY OF LEFT LOWER EXTREMITY VEINS, GUIDANCE (06/04/17) ULTRASONOGRAPHY OF RIGHT JUGULAR VEINS, GUIDANCE (06/04/17) Family History: States: No Known Family Hx - Social History Hx Tobacco Use: No Hx Alcohol Use: No Hx Substance Use: No - Immunization History Hx Tetanus Toxoid Vaccination: No Hx Influenza Vaccination: No Hx Pneumococcal Vaccination: No Review of Systems - Review of Systems Systems not reviewed;Unavailable: Other (PT NON VERBAL.) Past Patient History - Infectious Disease Hx of Infectious Diseases: VRE - Past Medical History & Family History Past Medical History?: Yes - Past Social History Smoking Status: Unknown If Ever Smoked - CARDIAC Hx Hypertension: Yes Hx Pacemaker: No - PULMONARY Hx Respiratory Disorders: No - NEUROLOGICAL Hx 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) - HEENT Hx HEENT Problems: No - RENAL Hx Chronic Kidney Disease: Yes - ENDOCRINE/METABOLIC Hx Endocrine Disorders: No - HEMATOLOGICAL/ONCOLOGICAL Hx Blood Disorders: No - INTEGUMENTARY Hx Dermatological Problems: Yes Hx Eczema: Yes - MUSCULOSKELETAL/RHEUMATOLOGICAL Hx Musculoskeletal Disorders: No Hx Falls: Yes - GASTROINTESTINAL Hx Gastrointestinal Disorders: No - GENITOURINARY/GYNECOLOGICAL Hx Genitourinary Disorders: Yes Other/Comment: ERIC since jun 2017. last changed Jan 01, 2018 - PSYCHIATRIC Hx Substance Use: No - SURGICAL HISTORY Hx Surgeries: Yes Hx Vascular Access Device: Yes Other/Comment: CYSTOSCOPY. NEPHROSTOMY TUBES, ROWDY.- removed. kidney stent ? - ANESTHESIA Hx Anesthesia: Yes Hx Anesthesia Reactions: No Hx Malignant Hyperthermia: No Meds Allergies/Adverse Reactions: Allergies Allergy/AdvReac Type Severity Reaction Status Date / Time No Known Allergies Allergy Verified 01/08/18 14:17 - Medications Medications: Current Medications Carvedilol (Coreg) 3.125 mg PO DAILY [facility] Famotidine (Pepcid) 20 mg PO DAILY [facility] Heparin Sodium (Porcine) (Heparin) 5,000 units SC Q12 [facility] Home Med (Ferrous Gluconate [Ferate]) 240 mg PO TID [facility] Cefepime HCl (Maxipime Iv 1 Gm Premix) 1 gm in 50 mls @ 100 mls/hr IVPB Q24H [place] PRN Reason: Protocol Last Admin: 01/08/18 20:50 Dose: 100 mls/hr Vitamin B Complex/Vit C/Folic Acid (Nephro-Robel) 1 tab PO DAILY [facility] Warfarin Sodium (Coumadin) 4 mg PO DAILY [facility] Physical Exam - Constitutional Appears: No Acute Distress, Cachectic - Head Exam Head Exam: NORMAL INSPECTION - Eye Exam Eye Exam: PERRL - ENT Exam ENT Exam: Normal Oropharynx - Neck Exam Neck exam: Positive for: Normal Inspection - Respiratory Exam Respiratory Exam: Decreased Breath Sounds - Cardiovascular Exam Cardiovascular Exam: REGULAR RHYTHM, +S1, +S2 - GI/Abdominal Exam GI & Abdominal Exam: Normal Bowel Sounds, Soft. absent: Tenderness - Extremities Exam Extremities exam: Positive for: pedal pulses present. Negative for: calf tenderness, pedal edema - Neurological Exam Neurological exam: Alert, CN II-XII Intact - Psychiatric Exam Psychiatric exam: Normal Mood - Skin Skin Exam: Warm Results - Vital Signs Recent Vital Signs: Last Vital Signs Temp 98.1 F 01/08/18 20:42 Pulse 95 H 01/08/18 20:42 Resp 18 01/08/18 20:42 BP 106/63 01/08/18 20:42 Pulse Ox 98 01/08/18 20:42 - Labs Result Diagrams: 01/10/18 07:52 01/10/18 07:52 Labs: Laboratory Results - last 24 hr 01/08/18 01/08/18 01/08/18 16:02 16:02 16:02 WBC 4.5 L RBC 3.55 L Hgb 11.1 L Hct 32.2 L MCV 90.7 MCH 31.2 H MCHC 34.4 RDW 16.0 H Plt Count 259 MPV 7.5 Neut % (Auto) 49.4 L Lymph % (Auto) 35.8 [place] % (Auto) 11.7 H Eos % (Auto) 1.9 Baso % (Auto) 1.2 Neut # (Auto) 2.2 Lymph # (Auto) 1.6 [place] # (Auto) 0.5 Eos # (Auto) 0.1 Baso # (Auto) 0.1 PT 27.6 H INR 2.5 Sodium 139 Potassium 3.7 Chloride 92 L Carbon Dioxide 31 H Anion Gap 20 BUN 43 H Creatinine 6.9 H Est GFR ( Amer) 12 Est GFR (Non-Af Amer) 10 Random Glucose 80 Calcium 8.4 L Total Bilirubin 0.3 AST 33 ALT 57 Alkaline Phosphatase 72 Total Protein 8.5 H Albumin 4.1 Globulin 4.4 H Albumin/Globulin Ratio 0.9 L Urine Color Urine Clarity Urine pH Ur Specific [place] Urine Protein Urine Glucose (UA) Urine Ketones Urine Blood Urine Nitrate Urine Bilirubin Urine Urobilinogen Ur Leukocyte Esterase Urine WBC (Auto) Urine RBC (Auto) Urine WBC Clumps (Auto) Urine Bacteria 01/08/18 17:11 WBC RBC Hgb Hct MCV MCH MCHC RDW Plt Count MPV Neut % (Auto) Lymph % (Auto) [place] % (Auto) Eos % (Auto) Baso % (Auto) Neut # (Auto) Lymph # (Auto) [place] # (Auto) Eos # (Auto) Baso # (Auto) PT INR Sodium Potassium Chloride Carbon Dioxide Anion Gap BUN Creatinine Est GFR ( Amer) Est GFR (Non-Af Amer) Random Glucose Calcium Total Bilirubin AST ALT Alkaline Phosphatase Total Protein Albumin Globulin Albumin/Globulin Ratio Urine Color [place] Urine Clarity Turbid Urine pH 7.0 Ur Specific [place] 1.010 Urine Protein 2+ H Urine Glucose (UA) Normal Urine Ketones Negative Urine Blood 2+ H Urine Nitrate Negative Urine Bilirubin Negative Urine Urobilinogen Normal Ur Leukocyte Esterase 3+ H Urine WBC (Auto) 1486 H Urine RBC (Auto) 36 H Urine WBC Clumps (Auto) Many H Urine Bacteria Mod H Assessment & Plan (1) UTI (urinary tract infection) Assessment and Plan: PANCULTURE UA/ URINE CULTURE START iv CEFEPIME 1 G ONCE A DAY DAILY 01/08/18. ADD IV ZYVOX 600 MG EVERY 12 HOURLY FOR? VRE COVERAGE wHILE AWAITING CULTURES .01/08/18 Status: Acute (2) ESRD (end stage renal disease) on dialysis Assessment and Plan: ON HD TTS. JOE CATHETHER RT. CHEST WALL Status: Acute (3) Down syndrome Assessment and Plan: PATIENT IS NONVERBAL lIVES WITH HIS MOTHER AND DAD Status: Acute
[2018-01-09] MEDS: Multivitamin Vitamin B Complex (Nephro-Vite) Tab PO SCH (10:35)
--- NOTE | 2018-01-09 12:13 | CP.PCM.PN ---
Subjective - Date & Time of Evaluation Date of Evaluation: 01/09/18 Time of Evaluation: 12:11 - Subjective Subjective: CHIEF COMPLAINTS TODAY : No specific complaints ROS. Interviewed mother HEENT : N. Resp : No cough, wheezing ,pleuritic CP ,or hemoptysis Cardio : No anginal CP, PND, orthopnea, palpitation GI : No abd.pain, n/v ,diarrhea or GI bleeding . FORMAL WAITER/WAITRESS : No headache, vertigo, focal deficit. Musculoskel : No joint swelling , Derm : No rash Psych : Normal affect. Ext : No swelling ,calf pain PE. Pt. is alert awake in no distress. V.S As noted in the chart Head ,ear nose,throat and eyes : Normal. Neck : Supple with normal carotids. Lungs: Clear air entry. Heart : S1 & S2 normal with S4. No murmur. Abd : Soft non tender with normal bowel sounds. Neuro : Moves all ext. with no localized deficit. Ext : No edema with intact pulses.Non tender calves Derm : No rashes or decubitus ulcer. LABS/RADIOLOGY: ASSESSMENT/PLAN : Patients temperature is down trending. On IV antibiotics. Continue hemodialysis. Objective - Vital Signs/Intake and Output Vital Signs (last 24 hours): Temp Pulse Resp BP Pulse Ox 97.5 F L 74 20 99/64 L 96 01/09/18 08:13 01/09/18 08:13 01/09/18 08:13 01/09/18 08:13 01/09/18 08:13 Intake and Output: 01/09/18 01/09/18 11:59 23:59 Intake Total 310 Output Total 250 Balance 60 - Medications Medications: Current Medications Carvedilol (Coreg) 3.125 mg PO DAILY [facility] Famotidine (Pepcid) 20 mg PO DAILY [facility] Heparin Sodium (Porcine) (Heparin) 5,000 units SC Q12 [facility] Home Med (Ferrous Gluconate [Ferate]) 240 mg PO TID [facility] Cefepime HCl (Maxipime Iv 1 Gm Premix) 1 gm in 50 mls @ 100 mls/hr IVPB Q24H [facility] PRN Reason: Protocol Last Admin: 01/08/18 20:50 Dose: 100 mls/hr Linezolid (Zyvox 600mg/300ml D5w) 600 mg in 300 mls @ 200 mls/hr IVPB Q12H [facility] PRN Reason: Protocol Last Admin: 01/09/18 00:00 Dose: 200 mls/hr Vitamin B Complex/Vit C/Folic Acid (Nephro-Robel) 1 tab PO DAILY [facility] Last Admin: 01/09/18 10:35 Dose: 1 tab Warfarin Sodium (Coumadin) 4 mg PO DAILY [facility] - Labs Labs: 01/08/18 16:02 01/08/18 16:02 PT 27.6 SECONDS (9.7-12.2) H 01/08/18 16:02 INR 2.5 01/08/18 16:02
[2018-01-09] MEDS: FERROUS GLUCONATE 240 MG PO SCH ×2 (12:49→14:42)
[2018-01-09] MEDS: Linezolid 600 mg in D5W 300 ml 600 MG/300 ML BAG IVPB SCH ×2 (12:55)
[2018-01-09 15:11] LABS: INR 2.5; PROTHROMBIN TIME 27.1 SECONDS (9.7-12.2)
[2018-01-09] MEDS: Cefepime IV 1 gm in Dextrose 1 GM/50 ML BAG IVPB SCH (21:29)
--- NOTE | 2018-01-09 23:25 | CON ---
Copied To: Julio Miller MD Attending MD: Julio Miller MD ATTENDING PHYSICIAN: Lilibeth Diallo MD DATE: 01/09/2018 HISTORY OF PRESENT ILLNESS: Mr. Pierce is a 27-year-old male with Down syndrome who is being seen for management of dialysis dependent renal failure. Mr. Pierce does not speak and the history is obtained from his mother. Mr. 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 He receives his dialysis on Tuesdays, , and Saturdays in [place]. He has a chronic indwelling catheter and was admitted last evening because of temperature at home and foul smelling urine. LABORATORY DATA: On 01/08/2018; his white count was 45,000, hemoglobin 11.1, hematocrit 32.2, and platelet count 259,000. Sodium 139, potassium 3.7, chloride 92, CO2 of 31, BUN 43, creatinine 6.9, calcium 8.4, total bilirubin 0.3, and albumin 4.1. Urine was turbid with 2+ protein, 2+ blood, leukocyturia, hematuria, and bacteruria. PAST MEDICAL HISTORY: No diabetes, hypertension, stroke, or myocardial infarction. He has no allergies. He has been admitted to [place] in the past. MEDICATIONS: His medications include Coreg, cefepime, Pepcid, iron, vitamin B, Coumadin, and linezolid. FAMILY HISTORY: Positive for hypertension. SOCIAL HISTORY: Negative for alcohol or drug abuse. He does not smoke. REVIEW OF SYSTEMS: His mother states he was not having shaking chills. He was not complaining of chest or abdominal pain. There was no shortness of breath, nausea, vomiting, or diarrhea. PHYSICAL EXAMINATION GENERAL: He was awake and comfortable in the bed, not answering questions or following commands. VITAL SIGNS: His temperature was 97.5. His blood pressure was 99/64. His pulse was 74. NECK: There was no jugular venous distention at 80 to 90 degrees. LUNGS: Clear. HEART: Rhythm was regular. ABDOMEN: Soft and nontender. There was no CVA tenderness. A Nick was in place. EXTREMITIES: There was no leg edema. IMPRESSION: Eng-stage renal disease, dialysis dependent, chronic obstructive nephropathy, Down syndrome, probable neurogenic bladder, and urinary tract infection. RECOMMENDATIONS: We will schedule dialysis today with mild ultrafiltration. Await further treatment and evaluation. Thank you for your kind referral. We will continue to follow with you. Julio Miller MD
[2018-01-10] MEDS: Linezolid 600 mg in D5W 300 ml 600 MG/300 ML BAG IVPB SCH ×2 (00:01→11:12)
[2018-01-10 08:10] LABS: BASO # 0.1 K/uL (0.0-0.2); BASO % 1.4 % (0.0-2.0); EOS # 0.1 K/uL (0.0-0.7); HEMOGLOBIN 10.5 g/dL (12.0-18.0); LYMPH # 1.4 K/uL (1.0-4.3); LYMPH % 28.5 % (20.0-40.0); MEAN CELL VOLUME 92.1 fL (80.0-94.0); MEAN CORPUSCULAR HEMOGLOBIN 31.2 pg (27.0-31.0); MEAN CORPUSCULAR HGB CONC 33.9 g/dL (33.0-37.0); MEAN PLATELET VOLUME 7.8 fL (7.2-11.7); MONO # 0.5 K/uL (0.0-0.8); MONO % 9.8 % (0.0-10.0); NEUT % 58.3 % (50.0-75.0); RBC 3.35 Mil/uL (4.40-5.90); RED CELL DISTRIBUTION WIDTH 15.8 % (11.5-14.5); WHITE BLOOD COUNT 5.1 K/uL (4.8-10.8)
[2018-01-10 08:13] LABS: INR 2.2; PROTHROMBIN TIME 23.6 SECONDS (9.7-12.2)
[2018-01-10 08:33] LABS: ALB/GLOB RATIO 0.9 (1.0-2.1); ALBUMIN 3.5 g/dL (3.5-5.0); CALCIUM 8.1 mg/dl (8.6-10.4)
[2018-01-10] MEDS: Multivitamin Vitamin B Complex (Nephro-Vite) Tab PO SCH (10:02)
--- NOTE | 2018-01-10 15:23 | CP.PCM.PN ---
Subjective - Date & Time of Evaluation Date of Evaluation: 01/10/18 Time of Evaluation: 15:22 - Subjective Subjective: CHIEF COMPLAINTS TODAY : No specific complaints ROS. Interviewed mother HEENT : N. Resp : No cough, wheezing ,pleuritic CP ,or hemoptysis Cardio : No anginal CP, PND, orthopnea, palpitation GI : No abd.pain, n/v ,diarrhea or GI bleeding . [employer] LEVERMAN : No headache, vertigo, focal deficit. Musculoskel : No joint swelling , Derm : No rash Psych : Normal affect. Ext : No swelling ,calf pain PE. Pt. is alert awake in no distress. V.S As noted in the chart Head ,ear nose,throat and eyes : Normal. Neck : Supple with normal carotids. Lungs: Clear air entry. Heart : S1 & S2 normal with S4. No murmur. Abd : Soft non tender with normal bowel sounds. Neuro : Moves all ext. with no localized deficit. Ext : No edema with intact pulses.Non tender calves Derm : No rashes or decubitus ulcer. LABS/RADIOLOGY: urine culture shows Pseudomonas and Klebsiella pneumonia. ASSESSMENT/PLAN : IV antibiotics as per ID. Patient has a unilateral stent will get a urology evaluation. Patient is on Coumadin due to shunt clot recently. Objective - Vital Signs/Intake and Output Vital Signs (last 24 hours): Temp Pulse Resp BP Pulse Ox 98.3 F 79 20 95/60 L 96 01/10/18 08:55 01/10/18 08:55 01/10/18 08:55 01/10/18 08:55 01/10/18 08:55 Intake and Output: 01/10/18 01/10/18 11:59 23:59 Intake Total 500 Output Total 800 Balance -300 - Medications Medications: Current Medications Calcium Acetate (Phoslo) 667 mg PO TIDCC [facility] Last Admin: 01/10/18 13:56 Dose: 667 mg Carvedilol (Coreg) 3.125 mg PO DAILY [facility] Last Admin: 01/10/18 10:04 Dose: Not Given Famotidine (Pepcid) 20 mg PO DAILY [facility] Last Admin: 01/10/18 10:02 Dose: 20 mg Ferrous Gluconate (Fergon) 324 mg PO TID [facility] Last Admin: 01/10/18 13:56 Dose: 324 mg Cefepime HCl (Maxipime Iv 1 Gm Premix) 1 gm in 50 mls @ 100 mls/hr IVPB Q24H [facility] PRN Reason: Protocol Last Admin: 01/09/18 21:29 Dose: 100 mls/hr Linezolid (Zyvox 600mg/300ml D5w) 600 mg in 300 mls @ 200 mls/hr IVPB Q12H [facility] PRN Reason: Protocol Last Admin: 01/10/18 11:12 Dose: 200 mls/hr Vitamin B Complex/Vit C/Folic Acid (Nephro-Robel) 1 tab PO DAILY [facility] Last Admin: 01/10/18 10:02 Dose: 1 tab - Labs Labs: 01/10/18 07:52 01/10/18 07:52 PT 23.6 SECONDS (9.7-12.2) H 01/10/18 07:52 INR 2.2 01/10/18 07:52 APTT 42 SECONDS (21-34) H 01/10/18 07:52
[2018-01-10] MEDS ORDERED: Gentamicin 80 mg/2mL Inj. IVPB SCH (16:30)
[2018-01-10] MEDS: Cefepime IV 1 gm in Dextrose 1 GM/50 ML BAG IVPB SCH (20:14)
--- NOTE | 2018-01-10 20:44 | CP.PCM.PN ---
Subjective - Date & Time of Evaluation Date of Evaluation: 01/10/18 Time of Evaluation: 11:00 - Subjective Subjective: renal follow up note no events overnight vitals reviewed heent normal op moist no jvd [id number] noresp distress no edema awake, oritented to self esrd/down syndrome/htn/uti/anemia hd tts schedule, lytes reviewed uti on abx, dose for esrd await cultures monitor hb and phos levels Objective - Vital Signs/Intake and Output Vital Signs (last 24 hours): Temp Pulse Resp BP Pulse Ox 97.8 F 79 20 102/64 100 01/10/18 16:00 01/10/18 16:00 01/10/18 16:00 01/10/18 16:00 01/10/18 16:00 Intake and Output: 01/10/18 01/11/18 18:59 06:59 Intake Total 800 Output Total 400 Balance 400 - Medications Medications: Current Medications Calcium Acetate (Phoslo) 667 mg PO TIDCC [facility] Last Admin: 01/10/18 16:53 Dose: 667 mg Carvedilol (Coreg) 3.125 mg PO DAILY [facility] Last Admin: 01/10/18 10:04 Dose: Not Given Famotidine (Pepcid) 20 mg PO DAILY [facility] Last Admin: 01/10/18 10:02 Dose: 20 mg Ferrous Gluconate (Fergon) 324 mg PO TID [facility] Last Admin: 01/10/18 17:04 Dose: 324 mg Cefepime HCl (Maxipime Iv 1 Gm Premix) 1 gm in 50 mls @ 100 mls/hr IVPB Q24H [facility] PRN Reason: Protocol Last Admin: 01/10/18 20:14 Dose: 100 mls/hr Vitamin B Complex/Vit C/Folic Acid (Nephro-Robel) 1 tab PO DAILY [facility] Last Admin: 01/10/18 10:02 Dose: 1 tab - Labs Labs: 01/10/18 07:52 01/10/18 07:52 PT 23.6 SECONDS (9.7-12.2) H 01/10/18 07:52 INR 2.2 01/10/18 07:52 APTT 42 SECONDS (21-34) H 01/10/18 07:52
--- NOTE | 2018-01-10 23:01 | CP.PCM.PN ---
Subjective - Date & Time of Evaluation Date of Evaluation: 01/10/18 Time of Evaluation: 23:01 - Subjective Subjective: CHIEF COMPLAINTS TODAY : afebrile, No specific complaints ROS. ON OBSERVATION . (PT MUTE ) HEENT : N. Resp : No cough, wheezing ,pleuritic CP ,or hemoptysis Cardio : No anginal CP, PND, orthopnea, palpitation GI : No abd.pain, n/v ,diarrhea or GI bleeding . INSTRUCTIONAL TECHNOLOGIST : No headache, vertigo, focal deficit. Musculoskel : No joint swelling , Derm : No rash Psych : Normal affect. Ext : No swelling ,calf pain PE. Pt. is alert awake in no distress. V.S As noted in the chart Head ,ear nose,throat and eyes : Normal. Neck : Supple with normal carotids. Lungs: Clear air entry. Heart : S1 & S2 normal with S4. No murmur. Abd : Soft non tender with normal bowel sounds. Neuro : Moves all ext. with no localized deficit. Ext : No edema with intact pulses.Non tender calves Derm : No rashes or decubitus ulcer. LABS/RADIOLOGY: urine culture shows Pseudomonas and Klebsiella pneumonia. s- cefipime/ gentamicin Objective - Vital Signs/Intake and Output Vital Signs (last 24 hours): Temp Pulse Resp BP Pulse Ox 97.8 F 79 20 102/64 100 01/10/18 16:00 01/10/18 16:00 01/10/18 16:00 01/10/18 16:00 01/10/18 16:00 Intake and Output: 01/10/18 01/11/18 18:59 06:59 Intake Total 800 800 Output Total 400 550 Balance 400 250 - Medications Medications: Current Medications Calcium Acetate (Phoslo) 667 mg PO TIDCC [facility] Last Admin: 01/10/18 16:53 Dose: 667 mg Carvedilol (Coreg) 3.125 mg PO DAILY [facility] Last Admin: 01/10/18 10:04 Dose: Not Given Famotidine (Pepcid) 20 mg PO DAILY [facility] Last Admin: 01/10/18 10:02 Dose: 20 mg Ferrous Gluconate (Fergon) 324 mg PO TID [facility] Last Admin: 01/10/18 17:04 Dose: 324 mg Cefepime HCl (Maxipime Iv 1 Gm Premix) 1 gm in 50 mls @ 100 mls/hr IVPB Q24H [facility] PRN Reason: Protocol Last Admin: 01/10/18 20:14 Dose: 100 mls/hr Vitamin B Complex/Vit C/Folic Acid (Nephro-Robel) 1 tab PO DAILY [facility] Last Admin: 01/10/18 10:02 Dose: 1 tab - Labs Labs: 01/10/18 07:52 01/10/18 07:52 PT 23.6 SECONDS (9.7-12.2) H 01/10/18 07:52 INR 2.2 01/10/18 07:52 APTT 42 SECONDS (21-34) H 01/10/18 07:52 Assessment and Plan (1) UTI (urinary tract infection) Assessment & Plan: continue iv CEFEPIME 1 G ONCE A DAY DAILY 01/08/18. ADD IV GENTAMYCIN 50MG IVPB XI DOSE TODAY F/U WITH GENTAMYCIN 50MG IVPB POST HD TTS X 5 DOSES 01/12- 01/21/18 (TTS ). EVALUATION IN PROGRESS. DC IV ZYVOX Status: Acute (2) ESRD (end stage renal disease) on dialysis Status: Acute (3) Down syndrome Status: Acute
[2018-01-11] MEDS: Multivitamin Vitamin B Complex (Nephro-Vite) Tab PO SCH (11:00)
--- NOTE | 2018-01-11 12:39 | CP.PCM.PN ---
Subjective - Subjective Subjective: CHIEF COMPLAINTS TODAY : No specific complaints ROS. Interviewed mother HEENT : N. Resp : No cough, wheezing ,pleuritic CP ,or hemoptysis Cardio : No anginal CP, PND, orthopnea, palpitation GI : No abd.pain, n/v ,diarrhea or GI bleeding . TICKET SCHEDULER : No headache, vertigo, focal deficit. Musculoskel : No joint swelling , Derm : No rash Psych : Normal affect. Ext : No swelling ,calf pain PE. Pt. is alert awake in no distress. V.S As noted in the chart Head ,ear nose,throat and eyes : Normal. Neck : Supple with normal carotids. Lungs: Clear air entry. Heart : S1 & S2 normal with S4. No murmur. Abd : Soft non tender with normal bowel sounds. Neuro : Moves all ext. with no localized deficit. Ext : No edema with intact pulses.Non tender calves Derm : No rashes or decubitus ulcer. LABS/RADIOLOGY: urine culture shows Pseudomonas and Klebsiella pneumonia. ASSESSMENT/PLAN : IV antibiotics as per ID. Patient has a unilateral stent will get a urology evaluation. Patient is on Coumadin due to shunt clot recently Objective - Vital Signs/Intake and Output Vital Signs (last 24 hours): Temp Pulse Resp BP Pulse Ox 97.3 F L 70 20 102/66 100 01/11/18 08:35 01/11/18 08:35 01/11/18 08:35 01/11/18 08:35 01/11/18 08:35 Intake and Output: 01/11/18 01/11/18 11:59 23:59 Intake Total 240 Output Total 300 Balance -60 - Medications Medications: Current Medications Calcium Acetate (Phoslo) 667 mg PO TIDCC [facility] Last Admin: 01/11/18 08:35 Dose: 667 mg Carvedilol (Coreg) 3.125 mg PO DAILY [facility] Last Admin: 01/11/18 11:00 Dose: 3.125 mg Famotidine (Pepcid) 20 mg PO DAILY [facility] Last Admin: 01/11/18 11:00 Dose: 20 mg Ferrous Gluconate (Fergon) 324 mg PO TID [facility] Last Admin: 01/11/18 11:00 Dose: 324 mg Cefepime HCl (Maxipime Iv 1 Gm Premix) 1 gm in 50 mls @ 100 mls/hr IVPB Q24H [facility] PRN Reason: Protocol Last Admin: 01/10/18 20:14 Dose: 100 mls/hr Vitamin B Complex/Vit C/Folic Acid (Nephro-Robel) 1 tab PO DAILY [facility] Last Admin: 01/11/18 11:00 Dose: 1 tab - Labs Labs: 01/10/18 07:52 01/10/18 07:52 PT 23.6 SECONDS (9.7-12.2) H 01/10/18 07:52 INR 2.2 01/10/18 07:52 APTT 42 SECONDS (21-34) H 01/10/18 07:52
[2018-01-11 14:07] LABS: INR 2.2; PROTHROMBIN TIME 24.1 SECONDS (9.7-12.2)
--- NOTE | 2018-01-11 14:40 | PCM.URO ---
Urology Progress Note - Objective Lab Studies: Reviewed (gu dx: hydronephrosis, retention, renal failure , gu plans : possible change of smith , not changing stents pt was seen recently in the office) Intake & Output: Intake & Output 01/10/18 01/11/18 01/11/18 18:59 06:59 18:59 Intake Total 800 1040 Output Total 400 850 Balance 400 190 Intake: Intake, IV Amount 300 300 Right Antecubital 300 300 Oral 500 740 Output: Urine 400 850 Urethral (Smith) 400 850 Other: # Bowel Movements 0 Vital Signs: Vital Signs - 24 hr 01/10/18 01/11/18 01/11/18 16:00 00:00 08:35 Temperature 97.8 F 98.1 F 97.3 F L Pulse Rate 79 85 70 Respiratory 20 20 20 Rate Blood Pressure 102/64 99/61 L 102/66 O2 Sat by Pulse 100 97 100 Oximetry
--- NOTE | 2018-01-11 15:11 | CP.PCM.PN ---
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 neg for HIT/hypercoag work up Anemia, hx of MR vit D def with secondary hyperparathyroidism chronic systolic CHF with LVEF 35% now LVEF normal on latest echo november 2017 s/p bilateral ureteral stents 12/08/17 Plan Plan for dialysis tomorrow as TTS schedule. continue with nephrovite 1 tab/day on low dose coreg, consider changing to MWF schedule due to low BP, not on RAAS chaitanya due to low BP urology and ID consult appreciated pt was on systemic a/c with oral coumadin last Hb 10.5-11.1 hence not on WILBER here. can d/c oral iron outpt PTH and Phos under control Dose meds/antibiotics for dialysis status. Avoid fleets enema/magnesium based laxatives. Avoid nephrotoxins/NSAIDs Glycemic control Further work up/management as per primary team. Thanks for allowing me to participate in care of your patient. Will follow patient with you. Please call if any Qs. 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 overnight events noted. per mother, pt is doing better, happy and eating well Physical Examination: General Appearance: Comfortable, in no acute respiratory distress Vitals reviewed and noted as below Head; Atraumatic, normocephalic ENT: no ulcers no thrush. Tongue is midline. Oropharynx: no rash or ulcers. EYES: Pupils are equal, round and reactive to light accommodation. Eye muscles and extraocular movement intact. Sclera is anicteric. Neck; supple no lymphadenopathy, no thyromegaly or bruit Lungs: Normal respiratory rate/effort. Breath sounds bilateral equal and clear Heart: Normal rate. s1s2 normal. No rub or gallop. Extremities: no edema. No varicose veins Neurological: Patient is alert, awake, has severe MR, non communicative, non verbal Skin: Warm and dry. Normal turgor. No rash. Palpitation: Normal elasticity for age Abdomen: unable as pt not allowing Psych: no insight MSK: no joint tenderness or swelling. Digits and nails normal, no deformity : has smith access: permacath Labs/imaging reviewed. Past medical history, past surgical history, family history, social history, allergy reviewed and noted as below Family hx: no hx of CKD. Rest non-contributory Objective - Vital Signs/Intake and Output Vital Signs (last 24 hours): Temp Pulse Resp BP Pulse Ox 97.3 F L 70 20 102/66 100 01/11/18 08:35 01/11/18 08:35 01/11/18 08:35 01/11/18 08:35 01/11/18 08:35 Intake and Output: 01/11/18 01/11/18 06:59 18:59 Intake Total 1040 Output Total 850 Balance 190 - Medications Medications: Current Medications Calcium Acetate (Phoslo) 667 mg PO TIDCC [facility] Last Admin: 01/11/18 12:39 Dose: 667 mg Carvedilol (Coreg) 3.125 mg PO DAILY [facility] Last Admin: 01/11/18 11:00 Dose: 3.125 mg Famotidine (Pepcid) 20 mg PO DAILY [facility] Last Admin: 01/11/18 11:00 Dose: 20 mg Ferrous Gluconate (Fergon) 324 mg PO TID [facility] Last Admin: 01/11/18 14:30 Dose: 324 mg Cefepime HCl (Maxipime Iv 1 Gm Premix) 1 gm in 50 mls @ 100 mls/hr IVPB Q24H [facility] PRN Reason: Protocol Last Admin: 01/10/18 20:14 Dose: 100 mls/hr Vitamin B Complex/Vit C/Folic Acid (Nephro-Robel) 1 tab PO DAILY [facility] Last Admin: 01/11/18 11:00 Dose: 1 tab - Labs Labs: 01/10/18 07:52 01/10/18 07:52 PT 24.1 SECONDS (9.7-12.2) H 01/11/18 14:39 INR 2.2 01/11/18 14:39 APTT 42 SECONDS (21-34) H 01/10/18 07:52
[2018-01-11] MEDS: Cefepime IV 1 gm in Dextrose 1 GM/50 ML BAG IVPB SCH (20:30)
--- NOTE | 2018-01-11 23:29 | CP.PCM.PN ---
Subjective - Date & Time of Evaluation Date of Evaluation: 01/11/18 Time of Evaluation: 23:29 - Subjective Subjective: CHIEF COMPLAINTS TODAY : afebrile, No specific complaints DISCUSSED WITH MOTHER. ROS. ON OBSERVATION . (PT MUTE ) HEENT : N. Resp : No cough, wheezing ,pleuritic CP ,or hemoptysis Cardio : No anginal CP, PND, orthopnea, palpitation GI : No abd.pain, n/v ,diarrhea or GI bleeding . INSOLE BOTTOM FILLER : No headache, vertigo, focal deficit. Musculoskel : No joint swelling , Derm : No rash Psych : Normal affect. Ext : No swelling ,calf pain PE. Pt. is alert awake in no distress. V.S As noted in the chart Head ,ear nose,throat and eyes : Normal. Neck : Supple with normal carotids. Lungs: Clear air entry. Heart : S1 & S2 normal with S4. No murmur. Abd : Soft non tender with normal bowel sounds. Neuro : Moves all ext. with no localized deficit. Ext : No edema with intact pulses.Non tender calves Derm : No rashes or decubitus ulcer. LABS/RADIOLOGY: urine culture shows Pseudomonas and Klebsiella pneumonia. s- cefipime/ gentamicin Objective - Vital Signs/Intake and Output Vital Signs (last 24 hours): Temp Pulse Resp BP Pulse Ox 98.1 F 68 20 99/60 L 96 01/11/18 16:00 01/11/18 16:00 01/11/18 16:00 01/11/18 16:00 01/11/18 16:00 Intake and Output: 01/11/18 01/12/18 18:59 06:59 Intake Total 450 300 Output Total 500 300 Balance -50 0 - Medications Medications: Current Medications Calcium Acetate (Phoslo) 667 mg PO TIDCC [facility] Last Admin: 01/11/18 17:36 Dose: 667 mg Carvedilol (Coreg) 3.125 mg PO DAILY [facility] Last Admin: 01/11/18 11:00 Dose: 3.125 mg Famotidine (Pepcid) 20 mg PO DAILY [facility] Last Admin: 01/11/18 11:00 Dose: 20 mg Ferrous Gluconate (Fergon) 324 mg PO TID [facility] Last Admin: 01/11/18 17:35 Dose: 324 mg Cefepime HCl (Maxipime Iv 1 Gm Premix) 1 gm in 50 mls @ 100 mls/hr IVPB Q24H [facility] PRN Reason: Protocol Last Admin: 01/11/18 20:30 Dose: 100 mls/hr Gentamicin Sulfate 50 mg/ (Sodium Chloride) 101.25 mls @ 100 mls/hr IVPB TTS [facility] PRN Reason: Protocol Vitamin B Complex/Vit C/Folic Acid (Nephro-Robel) 1 tab PO DAILY [facility] Last Admin: 01/11/18 11:00 Dose: 1 tab - Labs Labs: 01/10/18 07:52 01/10/18 07:52 PT 24.1 SECONDS (9.7-12.2) H 01/11/18 14:39 INR 2.2 01/11/18 14:39 APTT 42 SECONDS (21-34) H 01/10/18 07:52 Assessment and Plan (1) UTI (urinary tract infection) Assessment & Plan: continue iv CEFEPIME 1 G ONCE A DAY DAILY 01/08/18. ADD IV GENTAMYCIN 50MG IVPB XI DOSE TODAY F/U WITH GENTAMYCIN 50MG IVPB POST HD TTS X 5 DOSES 01/12- 01/21/18 (TTS ). F/U NOTED -nO PLAN FOR CHANGE OF STENT WILL REPLACE [facility] PER . REPEAT UA/ URINE CULTURE ON REPLACEMENT OF fOLEYBY . Status: Acute (2) ESRD (end stage renal disease) on dialysis Assessment & Plan: PATIENT ON HEMODIALYSIS TTS. pATIENT ALSO ON WARFARIN , HX OF DVT Status: Acute (3) Down syndrome Status: Acute
[2018-01-12 07:17] LABS: BASO # 0.1 K/uL (0.0-0.2); BASO % 1.5 % (0.0-2.0); EOS # 0.2 K/uL (0.0-0.7); EOS % 3.3 % (0.0-4.0); HEMOGLOBIN 9.6 g/dL (12.0-18.0); LYMPH # 1.7 K/uL (1.0-4.3); LYMPH % 32.9 % (20.0-40.0); MEAN CELL VOLUME 92.6 fL (80.0-94.0); MEAN CORPUSCULAR HEMOGLOBIN 31.2 pg (27.0-31.0); MEAN CORPUSCULAR HGB CONC 33.6 g/dL (33.0-37.0); MONO # 0.5 K/uL (0.0-0.8); MONO % 9.4 % (0.0-10.0); NEUT # 2.7 K/uL (1.8-7.0); NEUT % 52.9 % (50.0-75.0); RBC 3.07 Mil/uL (4.40-5.90)
[2018-01-12 09:27] VITALS: TEMP 97.7
[2018-01-12] MEDS: Multivitamin Vitamin B Complex (Nephro-Vite) Tab PO SCH ×2 (10:46→14:09)
[2018-01-12] MEDS: EPOETIN ALFA 4,000 UNIT/ML ML Dialysis SC SCH ×2 (10:48→14:34)
--- NOTE | 2018-01-12 10:59 | CP.PCM.PN ---
Subjective - Date & Time of Evaluation Date of Evaluation: 01/12/18 Time of Evaluation: 10:58 - Subjective Subjective: Nephrology Consultation Note: Assessment: stable UTI ESRD on HD via permacath (TTS) hx of b/l massive hydronephrosis and loss of renal cortex s/p b/l nephrostomy left femoral DVT. neg for HIT/hypercoag work up Anemia, hx of MR vit D def with secondary hyperparathyroidism chronic systolic CHF with LVEF 35% now LVEF normal on latest echo november 2017 s/p bilateral ureteral stents 12/08/17 Plan Plan for dialysis today as TTS schedule. continue with nephrovite 1 tab/day on low dose coreg, consider changing to MWF schedule due to low BP, not on RAAS chaitanya due to low BP. latest LVEF normal urology and ID consult appreciated pt was on systemic a/c with oral coumadin last Hb 10.5-11.1 hence not on WILBER here. can d/c oral iron outpt PTH and Phos under control Dose meds/antibiotics for dialysis status. Avoid fleets enema/magnesium based laxatives. Avoid nephrotoxins/NSAIDs Glycemic control Further work up/management as per primary team. Thanks for allowing me to participate in care of your patient. Will follow patient with you. Please call if any Qs. 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 overnight events noted. per mother, pt is doing better, happy and eating well Physical Examination: seen on HD General Appearance: Comfortable, in no acute respiratory distress Vitals reviewed and noted as below Head; Atraumatic, normocephalic ENT: no ulcers no thrush. Tongue is midline. Oropharynx: no rash or ulcers. EYES: Pupils are equal, round and reactive to light accommodation. Eye muscles and extraocular movement intact. Sclera is anicteric. Neck; supple no lymphadenopathy, no thyromegaly or bruit Lungs: Normal respiratory rate/effort. Breath sounds bilateral equal and clear Heart: Normal rate. s1s2 normal. No rub or gallop. Extremities: no edema. No varicose veins Neurological: Patient is alert, awake, has severe MR, non communicative, non verbal Skin: Warm and dry. Normal turgor. No rash. Palpitation: Normal elasticity for age Abdomen: unable as pt not allowing Psych: no insight MSK: no joint tenderness or swelling. Digits and nails normal, no deformity : has smith access: permacath Labs/imaging reviewed. Past medical history, past surgical history, family history, social history, allergy reviewed and noted as below Family hx: no hx of CKD. Rest non-contributory Objective - Vital Signs/Intake and Output Vital Signs (last 24 hours): Temp Pulse Resp BP Pulse Ox 97.7 F 70 20 94/62 L 99 01/12/18 08:00 01/12/18 08:00 01/12/18 08:00 01/12/18 08:00 01/12/18 08:00 Intake and Output: 01/12/18 01/12/18 06:59 18:59 Intake Total 540 Output Total 600 Balance -60 - Medications Medications: Current Medications Calcium Acetate (Phoslo) 667 mg PO TIDCC [facility] Last Admin: 01/12/18 08:16 Dose: 667 mg Carvedilol (Coreg) 3.125 mg PO MWF [facility] Epoetin Raza (Procrit) 4,000 unit SC TTS [facility] Last Admin: 01/12/18 10:48 Dose: Not Given Famotidine (Pepcid) 20 mg PO DAILY [facility] Last Admin: 01/12/18 10:46 Dose: Not Given Cefepime HCl (Maxipime Iv 1 Gm Premix) 1 gm in 50 mls @ 100 mls/hr IVPB Q24H [facility] PRN Reason: Protocol Last Admin: 01/11/18 20:30 Dose: 100 mls/hr Gentamicin Sulfate 50 mg/ (Sodium Chloride) 101.25 mls @ 100 mls/hr IVPB TTS [facility] PRN Reason: Protocol Last Admin: 01/12/18 10:46 Dose: Not Given Vitamin B Complex/Vit C/Folic Acid (Nephro-Robel) 1 tab PO DAILY [facility] Last Admin: 01/12/18 10:46 Dose: Not Given - Labs Labs: 01/12/18 06:58 01/10/18 07:52 PT 24.1 SECONDS (9.7-12.2) H 01/11/18 14:39 INR 2.2 01/11/18 14:39 APTT 42 SECONDS (21-34) H 01/10/18 07:52
[2018-01-12 12:49] VITALS: O2SAT 99
[2018-01-12 12:51] VITALS: BP 136/60; PULSE 78; RESP 16
--- NOTE | 2018-01-12 14:12 | CP.PCM.PN ---
Subjective - Date & Time of Evaluation Date of Evaluation: 01/12/18 Time of Evaluation: 14:12 - Subjective Subjective: CHIEF COMPLAINTS TODAY : No specific complaints ROS. Interviewed mother HEENT : N. Resp : No cough, wheezing ,pleuritic CP ,or hemoptysis Cardio : No anginal CP, PND, orthopnea, palpitation GI : No abd.pain, n/v ,diarrhea or GI bleeding . DIRECTOR PRESALES : No headache, vertigo, focal deficit. Musculoskel : No joint swelling , Derm : No rash Psych : Normal affect. Ext : No swelling ,calf pain PE. Pt. is alert awake in no distress. V.S As noted in the chart Head ,ear nose,throat and eyes : Normal. Neck : Supple with normal carotids. Lungs: Clear air entry. Heart : S1 & S2 normal with S4. No murmur. Abd : Soft non tender with normal bowel sounds. Neuro : Moves all ext. with no localized deficit. Ext : No edema with intact pulses.Non tender calves Derm : No rashes or decubitus ulcer. LABS/RADIOLOGY: urine culture shows Pseudomonas and Klebsiella pneumonia. ASSESSMENT/PLAN : IV antibiotics as per ID. Objective - Vital Signs/Intake and Output Vital Signs (last 24 hours): Temp Pulse Resp BP Pulse Ox 97.7 F 78 16 136/60 99 01/12/18 09:30 01/12/18 12:49 01/12/18 12:49 01/12/18 12:49 01/12/18 12:49 Intake and Output: 01/12/18 01/12/18 11:59 23:59 Intake Total 240 Output Total 300 Balance -60 - Medications Medications: Current Medications Calcium Acetate (Phoslo) 667 mg PO TIDCC [facility] Last Admin: 01/12/18 14:08 Dose: 667 mg Carvedilol (Coreg) 3.125 mg PO MWF [facility] Epoetin Raza (Procrit) 4,000 unit SC TTS [facility] Last Admin: 01/12/18 10:48 Dose: Not Given Famotidine (Pepcid) 20 mg PO DAILY [facility] Last Admin: 01/12/18 14:10 Dose: 20 mg Cefepime HCl (Maxipime Iv 1 Gm Premix) 1 gm in 50 mls @ 100 mls/hr IVPB Q24H [facility] PRN Reason: Protocol Last Admin: 01/11/18 20:30 Dose: 100 mls/hr Gentamicin Sulfate 50 mg/ (Sodium Chloride) 101.25 mls @ 100 mls/hr IVPB TTS [facility] PRN Reason: Protocol Last Admin: 01/12/18 14:10 Dose: 100 mls/hr Vitamin B Complex/Vit C/Folic Acid (Nephro-Robel) 1 tab PO DAILY [facility] Last Admin: 01/12/18 14:09 Dose: 1 tab - Labs Labs: 01/12/18 06:58 01/10/18 07:52 PT 24.1 SECONDS (9.7-12.2) H 01/11/18 14:39 INR 2.2 01/11/18 14:39 APTT 42 SECONDS (21-34) H 01/10/18 07:52
--- NOTE | 2018-01-12 15:40 | CP.PCM.PN ---
Subjective - Date & Time of Evaluation Date of Evaluation: 01/12/18 Time of Evaluation: 15:40 - Subjective Subjective: Alert, awake, no acute distress, with down syndrome. Objective - Vital Signs/Intake and Output Vital Signs (last 24 hours): Temp Pulse Resp BP Pulse Ox 97.7 F 78 16 136/60 99 01/12/18 09:30 01/12/18 12:49 01/12/18 12:49 01/12/18 12:49 01/12/18 12:49 Intake and Output: 01/12/18 01/12/18 06:59 18:59 Intake Total 540 Output Total 600 500 Balance -60 -500 - Medications Medications: Current Medications Calcium Acetate (Phoslo) 667 mg PO TIDCC [facility] Last Admin: 01/12/18 14:08 Dose: 667 mg Carvedilol (Coreg) 3.125 mg PO MWF [facility] Epoetin Raza (Procrit) 4,000 unit SC TTS [facility] Last Admin: 01/12/18 14:34 Dose: 4,000 unit Famotidine (Pepcid) 20 mg PO DAILY [facility] Last Admin: 01/12/18 14:10 Dose: 20 mg Cefepime HCl (Maxipime Iv 1 Gm Premix) 1 gm in 50 mls @ 100 mls/hr IVPB Q24H [facility] PRN Reason: Protocol Last Admin: 01/11/18 20:30 Dose: 100 mls/hr Gentamicin Sulfate 50 mg/ (Sodium Chloride) 101.25 mls @ 100 mls/hr IVPB TTS [facility] PRN Reason: Protocol Last Admin: 01/12/18 14:10 Dose: 100 mls/hr Vitamin B Complex/Vit C/Folic Acid (Nephro-Robel) 1 tab PO DAILY [facility] Last Admin: 01/12/18 14:09 Dose: 1 tab Warfarin Sodium (Coumadin) 5 mg PO 1800 [facility] Stop: 01/12/18 18:01 - Labs Labs: 01/12/18 06:58 01/10/18 07:52 PT 24.1 SECONDS (9.7-12.2) H 01/11/18 14:39 INR 2.2 01/11/18 14:39 APTT 42 SECONDS (21-34) H 01/10/18 07:52 Assessment and Plan - Assessment and Plan (Free Text) Assessment: 27 year old male with downs syndrome, admitted with fever, UTI, seen and examined. Alert, awake, no fever, no distress noted. Mother at the bedside, no new complaint. Cleared by DR Wild, discussed with DR Diallo, plan to discharge home on iv gentamycin 4 more doses after each dialysis. Will continue with HD, TTS.
--- NOTE | 2018-01-20 14:47 | CP.PCM.DIS ---
Provider - Provider Date of Admission: 01/08/18 19:24 Attending physician: Lilibeth Diallo MD Time Spent in preparation of Discharge (in minutes): 35 Hospital Course - Lab Results Lab Results: Micro Results 01/08/18 19:42 Blood Blood Culture - Final NO GROWTH AFTER 5 DAYS 01/08/18 19:42 Blood Gram Stain - Final TEST NOT PERFORMED 01/08/18 19:42 Blood Blood Culture - Final NO GROWTH AFTER 5 DAYS 01/08/18 19:42 Blood Gram Stain - Final TEST NOT PERFORMED 01/08/18 17:11 Urine,Nick Urine Culture - Final Pseudomonas Aeruginosa Klebsiella Pneumoniae Ssp Pneu Most Recent Lab Values WBC 5.0 K/uL (4.8-10.8) 01/12/18 06:58 RBC 3.07 Mil/uL (4.40-5.90) L 01/12/18 06:58 Hgb 9.6 g/dL (12.0-18.0) L 01/12/18 06:58 Hct 28.5 % (35.0-51.0) L 01/12/18 06:58 MCV 92.6 fL (80.0-94.0) 01/12/18 06:58 MCH 31.2 pg (27.0-31.0) H 01/12/18 06:58 MCHC 33.6 g/dL (33.0-37.0) 01/12/18 06:58 RDW 16.0 % (11.5-14.5) H 01/12/18 06:58 Plt Count 199 K/uL (130-400) 01/12/18 06:58 MPV 8.0 fL (7.2-11.7) 01/12/18 06:58 Neut % (Auto) 52.9 % (50.0-75.0) 01/12/18 06:58 Lymph % (Auto) 32.9 % (20.0-40.0) 01/12/18 06:58 Vigo % (Auto) 9.4 % (0.0-10.0) 01/12/18 06:58 Eos % (Auto) 3.3 % (0.0-4.0) 01/12/18 06:58 Baso % (Auto) 1.5 % (0.0-2.0) 01/12/18 06:58 Neut # (Auto) 2.7 K/uL (1.8-7.0) 01/12/18 06:58 Lymph # (Auto) 1.7 K/uL (1.0-4.3) 01/12/18 06:58 Vigo # (Auto) 0.5 K/uL (0.0-0.8) 01/12/18 06:58 Eos # (Auto) 0.2 K/uL (0.0-0.7) 01/12/18 06:58 Baso # (Auto) 0.1 K/uL (0.0-0.2) 01/12/18 06:58 PT 24.1 SECONDS (9.7-12.2) H 01/11/18 14:39 INR 2.2 01/11/18 14:39 APTT 42 SECONDS (21-34) H 01/10/18 07:52 Sodium 137 mmol/L (132-148) 01/10/18 07:52 Potassium 4.9 mmol/L (3.6-5.2) 01/10/18 07:52 Chloride 100 mmol/L (98-107) 01/10/18 07:52 Carbon Dioxide 26 mmol/L (22-30) 01/10/18 07:52 Anion Gap 16 (10-20) 01/10/18 07:52 BUN 32 mg/dL (9-20) H 01/10/18 07:52 Creatinine 4.8 mg/dL (0.8-1.5) H 01/10/18 07:52 Est GFR ( Amer) 18 01/10/18 07:52 Est GFR (Non-Af Amer) 15 01/10/18 07:52 Random Glucose 97 mg/dL (75-110) 01/10/18 07:52 Calcium 8.1 mg/dl (8.6-10.4) L 01/10/18 07:52 Total Bilirubin 0.3 mg/dL (0.2-1.3) 01/10/18 07:52 AST 24 U/L (17-59) 01/10/18 07:52 ALT 39 U/L (21-72) 01/10/18 07:52 Alkaline Phosphatase 55 U/L (38-126) 01/10/18 07:52 Total Protein 7.2 g/dL (6.3-8.3) 01/10/18 07:52 Albumin 3.5 g/dL (3.5-5.0) 01/10/18 07:52 Globulin 3.7 gm/dL (2.2-3.9) 01/10/18 07:52 Albumin/Globulin Ratio 0.9 (1.0-2.1) L 01/10/18 07:52 Urine Color Yana (YELLOW) 01/08/18 17:11 Urine Clarity Turbid (Clear) 01/08/18 17:11 Urine pH 7.0 (5.0-8.0) 01/08/18 17:11 Ur Specific Goessel 1.010 (1.003-1.030) 01/08/18 17:11 Urine Protein 2+ mg/dL (NEGATIVE) H 01/08/18 17:11 Urine Glucose (UA) Normal mg/dL (Normal) 01/08/18 17:11 Urine Ketones Negative mg/dL (NEGATIVE) 01/08/18 17:11 Urine Blood 2+ (NEGATIVE) H 01/08/18 17:11 Urine Nitrate Negative (NEGATIVE) 01/08/18 17:11 Urine Bilirubin Negative (NEGATIVE) 01/08/18 17:11 Urine Urobilinogen Normal mg/dL (0.2-1.0) 01/08/18 17:11 Ur Leukocyte Esterase 3+ Anam/uL (Negative) H 01/08/18 17:11 Urine WBC (Auto) 1486 /hpf (0-5) H 01/08/18 17:11 Urine RBC (Auto) 36 /hpf (0-3) H 01/08/18 17:11 Urine WBC Clumps (Auto) Many /hpf (NONE) H 01/08/18 17:11 Urine Bacteria Mod (<OCC) H 01/08/18 17:11 - Hospital Course Hospital Course: Patient has a history of Down syndrome and end-stage renal disease on hemodialysis. As per the chart in November 2017 patient had stent inserted in the ureters. Since then patient has been admitted 2 times with recurrent UTI and the last culture was VRE. Patient was sent home on by mouth Zyvox. As per the mother patient continued to have foul-smelling urine and high temperatures. Patient was advised to go to the hospital if above symptoms recur. ID and urology were consulted. Urine culture came back positive for Pseudomonas infection andKlebsiella pneumonia and patient was put on gentamicin. Patient improved on IV antibiotics. Urology was consulted because of the patient had a recen change of unilateral stent. There was no any intervention from a neurological point of view. Patient stable will discharge home we will continue IV gentamicin during her dialysis session 3 times a week. Patient has a private medical doctor who will follow the patient's general level and further progression. Final diagnosis recurrent cystitis with acute cystitis secondary to Pseudomonas and Klebsiella pneumonia Down syndrome. Chronic renal hemodialysis. Discharge Exam - Head Exam Head Exam: NORMAL INSPECTION Discharge Plan - Follow Up Plan Condition: STABLE Disposition: HOME/ ROUTINE Instructions: Chronic Kidney Disease (DC), Dialysis and Diet, Urinary Tract Infection in Men (DC) Referrals: Lilibeth Diallo MD [Staff Provider] -
== END 2018-01-12 15:58 | disposition home or self-care (01) | DRG 689 ==
LOC: C.ER 14:14 → C.9E 19:24 → C.3T 20:26
PROVIDERS: ADMIT Internal Medicine Cardiovascular Disease; ATTEND Internal Medicine Cardiovascular Disease
PROC: 5A1D70Z Performance of Urinary Filtration, Intermittent, Less than 6 Hours Per Day (ICD-10-PCS; principal; 2018-01-09)
PROC: 5A1D70Z Performance of Urinary Filtration, Intermittent, Less than 6 Hours Per Day (ICD-10-PCS; 2018-01-12)
DX: N30.00 Acute cystitis without hematuria (principal); N18.6 End stage renal disease; I50.22 Chronic systolic (congestive) heart failure; I13.2 Hypertensive heart and chronic kidney disease with heart failure and with stage 5 chronic kidney disease, or end stage renal disease; N25.81 Secondary hyperparathyroidism of renal origin; R47.01 Aphasia; N30.20 Other chronic cystitis without hematuria; B96.1 Klebsiella pneumoniae [K. pneumoniae] as the cause of diseases classified elsewhere; B96.5 Pseudomonas (aeruginosa) (mallei) (pseudomallei) as the cause of diseases classified elsewhere; N13.8 Other obstructive and reflux uropathy; N31.9 Neuromuscular dysfunction of bladder, unspecified; F84.0 Autistic disorder; E55.9 Vitamin D deficiency, unspecified; D64.9 Anemia, unspecified; Q90.9 Down syndrome, unspecified; Z96.0 Presence of urogenital implants; Z99.2 Dependence on renal dialysis; Z87.440 Personal history of urinary (tract) infections; Z79.01 Long term (current) use of anticoagulants

== ENCOUNTER 2018-01-15 18:49 | Emergency (ER) | payer OTHER ==
[2018-01-15 18:50] VITALS: BMI 21.1
[2018-01-15 19:04] VITALS: RESP 20
--- NOTE | 2018-01-15 20:02 | C.PDOC ---
History Of Present Illness 27 y/o male presents to the emergency department with his mother for evaluation of dysfunctional catheter. Today the mother noticed blood in his indwelling Smith catheter that was placed about 6 days ago. Denies any fever, chills, nausea, or vomiting. Unable to obtain history from patient due to intellectual disability. Time Seen by Provider: 01/15/18 20:01 Chief Complaint (Nursing): Male Genitourinary History Per: Family (Mother) History/Exam Limitations: other (intellectual disability) Onset/Duration Of Symptoms: Hrs Current Symptoms Are (Timing): Still Present Severity: None Pain Scale Rating Of: 0 Quality Of Discomfort: Unable To Describe Associated Symptoms: denies: Fever, Chills, Nausea, Vomiting Recent travel outside of the [place]: No Additional History Per: Family Past Medical History Reviewed: Historical Data, Nursing Documentation, Vital Signs Vital Signs: Last Vital Signs Temp 97.6 F 01/15/18 20:38 Pulse 89 01/15/18 20:38 Resp 20 01/15/18 20:38 BP 100/66 01/15/18 20:38 Pulse Ox 100 01/15/18 20:47 - Medical History PMH: HTN, Chronic Kidney Disease Surgical History: Denies: Pacemaker - [facility] Procedures (01/08/18) DILATION OF BILATERAL URETERS WITH INTRALUMINAL DEVICE, ENDO (12/05/17) DRAINAGE OF LEFT KIDNEY PELVIS WITH DRAIN DEV, PERC APPROACH (06/04/17) DRAINAGE OF R KIDNEY PELVIS WITH DRAIN DEV, PERC APPROACH (06/04/17) FLUOROSCOPY OF KIDNEY, URETER & BLADDER USING OTH CONTRAST (12/05/17) FLUOROSCOPY OF RIGHT JUGULAR VEINS, GUIDANCE (06/04/17) INSERT INFUSION DEV IN R INT JUGULAR VEIN, PERC (06/04/17) INSERTION OF INFUSION DEVICE INTO LOWER VEIN, PERC APPROACH (06/04/17) REMOVAL OF INTRALUMINAL DEVICE FROM URETER, ENDO (12/05/17) ULTRASONOGRAPHY OF LEFT LOWER EXTREMITY VEINS, GUIDANCE (06/04/17) ULTRASONOGRAPHY OF RIGHT JUGULAR VEINS, GUIDANCE (06/04/17) Family History: States: No Known Family Hx - Social History Hx Tobacco Use: No Hx Alcohol Use: No Hx Substance Use: No - Immunization History Hx Tetanus Toxoid Vaccination: No Hx Influenza Vaccination: No Hx Pneumococcal Vaccination: No Review Of Systems Constitutional: Negative for: Fever, Chills Cardiovascular: Negative for: Chest Pain Respiratory: Negative for: Shortness of Breath Gastrointestinal: Negative for: Nausea, Vomiting, Diarrhea Neurological: Negative for: Weakness, Numbness Physical Exam - Physical Exam Appears: Non-toxic, No Acute Distress Skin: Warm, Dry Head: Normacephalic Eye(s): bilateral: PERRL, EOMI Oral Mucosa: Moist Neck: Trachea Midline, Supple Chest: Symmetrical Cardiovascular: Rhythm Regular Respiratory: No Rales, No Rhonchi, No Wheezing Gastrointestinal/Abdominal: Soft, No Tenderness Male Genital: Other (Indwelling smith catheter) Extremity: Bilateral: Normal Color And Temperature Pulses: Left Dorsalis Pedis: Normal, Right Dorsalis Pedis: Normal Neurological/Psych: Oriented x3 Gait: Steady ED Course And Treatment O2 Sat by Pulse Oximetry: 100 (RA) Pulse Ox Interpretation: Normal Progress Note: Flushed smith in the ED and drained clear urine. Catheter appears to be draining properly. Artificial Flower Maker reassured. Patient is stable for discharge home. Disposition Counseled Patient/Family Regarding: Studies Performed, Diagnosis, Need For Followup - Disposition Disposition: HOME/ ROUTINE Disposition Time: 20:02 Condition: FAIR Additional Instructions: Follow up with your doctor Instructions: How to Care for Your Smtih Catheter, Male Forms: [facility] [employer] [facility] (Nauruan) - Clinical Impression Clinical Impression: Smith catheter problem - Scribe Statement The provider has reviewed the documentation as recorded by the Aleksandar Prasad Provider Attestation: All medical record entries made by the Zacharyibalfonzo were at my direction and personally dictated by me. I have reviewed the chart and agree that the record accurately reflects my personal performance of the history, physical exam, medical decision making, and the department course for this patient. I have also personally directed, reviewed, and agree with the discharge instructions and disposition.
[2018-01-15 20:39] VITALS: BP 100/66; PULSE 89; TEMP 97.6
[2018-01-15 20:41] VITALS: O2SAT 100
== END 2018-01-15 20:39 | disposition home or self-care (01) ==
LOC: C.ER 18:49
DX: T83.098A Other mechanical complication of other urinary catheter, initial encounter (principal); Y84.8 Other medical procedures as the cause of abnormal reaction of the patient, or of later complication, without mention of misadventure at the time of the procedure; Y92.89 Other specified places as the place of occurrence of the external cause

== ENCOUNTER 2018-01-22 17:40 | Inpatient (IN) | payer OTHER ==
[2018-01-22 17:40] VITALS: BMI 21.1
[2018-01-22 18:50] LABS: BASO # 0.1 K/uL (0.0-0.2); EOS # 0.1 K/uL (0.0-0.7); HEMOGLOBIN 11.8 g/dL (12.0-18.0); LYMPH % 25.3 % (20.0-40.0); MEAN CELL VOLUME 90.5 fL (80.0-94.0); MEAN CORPUSCULAR HEMOGLOBIN 30.8 pg (27.0-31.0); MEAN PLATELET VOLUME 7.4 fL (7.2-11.7); MONO # 0.7 K/uL (0.0-0.8); MONO % 8.7 % (0.0-10.0); NRBC % 0.1 % (0.0-2.0); RBC 3.83 Mil/uL (4.40-5.90); RED CELL DISTRIBUTION WIDTH 16.3 % (11.5-14.5); WHITE BLOOD COUNT 7.8 K/uL (4.8-10.8)
[2018-01-22 19:09] LABS: URINE BACTERIA MOD (<OCC); URINE BILIRUBIN NEGATIVE (NEGATIVE); URINE BLOOD 3+ (NEGATIVE); URINE CLARITY Turbid (Clear); URINE GLUCOSE (UA) NORMAL (Normal); URINE LEUKOCYTE ESTERASE 3+ Leu/uL (Negative); URINE PROTEIN 2+ mg/dL (NEGATIVE); URINE UROBILINOGEN NORMAL mg/dL (0.2-1.0); WBC CLUMPS MANY /hpf
--- NOTE | 2018-01-22 19:09 | C.PDOC ---
History Of Present Illness 27 y/o male with past medical history of Down's Syndrome and chronic kidney disease (on dialysis T--S) referred to the ED by PMD for evaluation of possible UTI vs. pyelonephritis. Mother reports noticing dark and cloudy urine from the patients catheter. As per mom, patient has a history of recurrent UTIs and already took antibiotics this week without improvement. She notes the last dialysis session was yesterday and he received the last antibiotic at that time. Otherwise she denies any fever, vomiting, or other complaints. Patient is unable to provide own history as he is nonverbal. All history obtained from mother. PMD: [facility] Wallboard Worker: Dr. Dixon Time Seen by Provider: 01/22/18 18:55 Chief Complaint (Nursing): Male Genitourinary History Per: Family (mother) History/Exam Limitations: no limitations Onset/Duration Of Symptoms: Days Current Symptoms Are (Timing): Still Present Associated Symptoms: Urinary Symptoms Past Medical History Reviewed: Historical Data, Nursing Documentation, Vital Signs Vital Signs: Last Vital Signs Temp 99.3 F 01/22/18 22:12 Pulse 72 01/22/18 22:12 Resp 14 01/22/18 22:12 BP 100/95 H 01/22/18 22:12 Pulse Ox 99 01/22/18 22:12 - Medical History PMH: HTN, Chronic Kidney Disease (on dialysis T--S) Other PMH: Down's Syndrome Surgical History: Denies: Pacemaker - [facility] Procedures (01/08/18) DILATION OF BILATERAL URETERS WITH INTRALUMINAL DEVICE, ENDO (12/05/17) DRAINAGE OF LEFT KIDNEY PELVIS WITH DRAIN DEV, PERC APPROACH (06/04/17) DRAINAGE OF R KIDNEY PELVIS WITH DRAIN DEV, PERC APPROACH (06/04/17) FLUOROSCOPY OF KIDNEY, URETER & BLADDER USING OTH CONTRAST (12/05/17) FLUOROSCOPY OF RIGHT JUGULAR VEINS, GUIDANCE (06/04/17) INSERT INFUSION DEV IN R INT JUGULAR VEIN, PERC (06/04/17) INSERTION OF INFUSION DEVICE INTO LOWER VEIN, PERC APPROACH (06/04/17) REMOVAL OF INTRALUMINAL DEVICE FROM URETER, ENDO (12/05/17) ULTRASONOGRAPHY OF LEFT LOWER EXTREMITY VEINS, GUIDANCE (06/04/17) ULTRASONOGRAPHY OF RIGHT JUGULAR VEINS, GUIDANCE (06/04/17) Family History: States: Unknown Family Hx - Social History Hx Tobacco Use: No Hx Alcohol Use: No Hx Substance Use: No - Immunization History Hx Tetanus Toxoid Vaccination: No Hx Influenza Vaccination: No Hx Pneumococcal Vaccination: No Review Of Systems Except As Marked, All Systems Reviewed And Found Negative. Constitutional: Negative for: Fever Respiratory: Negative for: Shortness of Breath Gastrointestinal: Negative for: Vomiting, Diarrhea Genitourinary: Positive for: Other (Dark and cloudy urine) Physical Exam - Physical Exam Appears: Non-toxic, No Acute Distress Skin: Normal Color, Warm, Dry Head: Atraumatic Eye(s): bilateral: Normal Inspection Oral Mucosa: Moist Neck: Normal ROM, Supple Chest: Other (HD port to right chest) Cardiovascular: Rhythm Regular Respiratory: Normal Breath Sounds, No Rales, No Rhonchi, No Wheezing Gastrointestinal/Abdominal: Bowel Sounds (active), Soft, No Tenderness, No Distention Male Genital: Other (Indwelling smith catheter in place) Extremity: Bilateral: Atraumatic, Normal Color And Temperature, Normal ROM Neurological/Psych: Other (Alert, awake, interactive with parent) ED Course And Treatment - Laboratory Results Result Diagrams: 01/22/18 18:44 01/22/18 18:44 O2 Sat by Pulse Oximetry: 99 (RA) Pulse Ox Interpretation: Normal - CT Scan/US CT Abd/Pelvis Other Rad Studies (CT/US): Read By Radiologist, Radiology Report Reviewed CT/US Interpretation: Name: RAHEL NIETO Age: 27Years M Date: 01/22/2018. Requesting Physician: Julio Cordova : 1990. [facility] Procedure Ordered As Accession Number of. Images. CT ABDOMEN/PELVIS. WO. CT ABD PELVIS W O PO OR IV. CONT. [id number]. J. 484. Provided Clinical History: dysuria r/o pyelo. EXAM: CT Abdomen and Pelvis Without Intravenous Contrast. EXAM DATE/TIME: 01/22/2018 6:50 PM. CLINICAL HISTORY: 27 years old , male; Condition or disease; Kidney or ureter condition; Other: Dysuria; Additional info: Dysuria R/O pyelo. TECHNIQUE: Axial computed tomography images of the abdomen and pelvis without intravenous contrast. All CT. scans at this facility use at least one of these dose optimization techniques: automated exposure. control; mA and/or kV adjustment per patient size ( includes targeted exams where dose is matched to. clinical indication); or iterative reconstruction. Coronal and sagittal reformatted images were created and reviewed. COMPARISON: No relevant prior studies available. FINDINGS: Lung bases: Unremarkable. No mass. No consolidation. ABDOMEN: Liver: Unremarkable. Gallbladder and bile ducts: Unremarkable. No calcified stones. No ductal dilation. Pancreas: Unremarkable. No ductal dilation. Spleen: Unremarkable. No splenomegaly. Adrenals: Unremarkable. No mass. Kidneys and ureters: Severe right greater than left chronic hydronephrosis. Severe cortical thinning. on the right and moderate to severe cortical thinning on the left. No significant perinephric stranding. to suggest acute pyelonephritis. The left kidney is relatively small and lobulated. The distal right. ureter is dilated and is tortuous as it courses through the posterior pelvis. Stomach and bowel: Unremarkable. No obstruction. No mucosal thickening. PELVIS: Appendix: No findings to suggest acute appendicitis. Bladder: Smith catheter decompresses the urinary bladder. No stones. Reproductive: Unremarkable as visualized. ABDOMEN and PELVIS: Intraperitoneal space: Unremarkable. No free air. No significant fluid collection. Bones/joints: No acute fracture. No dislocation. Soft tissues: Unremarkable. Vasculature: Unremarkable. No abdominal aortic aneurysm. Lymph nodes: Unremarkable. No enlarged lymph nodes. Tubes, lines and devices: Bilateral double-J ureteral stents. The distal right ureteral stent is coiled in. the dilated distal ureter. The left tip is in the renal pelvises and the urinary bladder lumen. IMPRESSION: 1. The distal right ureteral stent is coiled in the dilated distal ureter. 2. Severe right greater than left chronic hydronephrosis. Severe cortical thinning on the right and. moderate to severe cortical thinning on the left. 3. No significant perinephric stranding to suggest acute pyelonephritis. Medical Decision Making Medical Decision Making: Initial Impression: UTI vs pyelonephritis Plan: --CMP --CBC --Lipase --Blood culture --Urine culture --Urinalysis --CT Abd/Pelvis Progress/Updates: CT findings reviewed with outside installation machinist in detail. All questions answered. Labs reviewed. [address] Cutler, medicine on-call, patient accepted for admission. Case discussed with medical writer. Disposition Discussed With : George Cutler Jr. Doctor Will See Patient In The: Hospital Counseled Patient/Family Regarding: Studies Performed, Diagnosis - Disposition Disposition: HOSPITALIZED Disposition Time: 20:15 Condition: STABLE - Clinical Impression Clinical Impression: ESRD (end stage renal disease) on dialysis, UTI (urinary tract infection), Down syndrome - Zacharyibe Statement The provider has reviewed the documentation as recorded by the Aleksandar Scherer Provider Attestation: All medical record entries made by the Aleksandar were at my direction and personally dictated by me. I have reviewed the chart and agree that the record accurately reflects my personal performance of the history, physical exam, medical decision making, and the department course for this patient. I have also personally directed, reviewed, and agree with the discharge instructions and disposition.
[2018-01-22 19:10] LABS: URINE COLOR YELLOW (YELLOW)
[2018-01-22 19:54] LABS: ALBUMIN 4.1 g/dL (3.5-5.0); CALCIUM 8.7 mg/dl (8.6-10.4)
[2018-01-22] MEDS ORDERED: Piperacillin/Tazobact 3.375 gm 100 ML IVPB STA (20:30)
[2018-01-22] MEDS ORDERED: Piperacillin/Tazobact 3.375 gm 100 ML IVPB ONE (20:48)
--- NOTE | 2018-01-22 22:24 | CP.PCM.HP ---
History of Present Illness - History of Present Illness History of Present Illness: The history is obtained form the patient's mother, Phyllis Cardenas ([phone]), as the patient is nonverbal. Vince Pierce is a 27 yo male with a history of Down syndrome and CKD who presents with cloudy urine. The patient has ESRD and receives HD 3x/week and always has a Reyes catheter. The patient has frequent UTIs. He was recently admitted from 01/08-01/20 for UTI with Klebsiella and Pseudomonas. He was treated with IV gentamicin and discharged on Linezolid. Patient took his last dose of Linezolid yesterday. Mother reports that patient had blood in his urine prior to that admission but now it is just cloudy. She states the patient is not acting differently than his baseline. She denies fevers. She does not believe he has any pain. Additionally, she states he has been scratching around his penis for the last few days and reports he was given some oral and topical medication for yeast infection. PMH: Down syndrome, obstructive uropathy, ESRD PSH: b/l ureteral stents Meds: NEED TO CONFIRM WITH PHARMACY Pepcid 20 mg PO daily Nephro-Robel daily All: NKA FH: denies SH: lives with mother no alcohol, tobacco, or drugs PMD: Dr. Gaudencio Foss ([place]) Urology: Dr. Tacos Hoover Nephrology: Dr. Mcknight Present on Admission - Present on Admission Any Indicators Present on Admission: Yes History of DVT/PE: No History of Uncontrolled Diabetes: No Urinary Catheter: Yes (Reyes) Decubitus Ulcer Present: No History Surgical Site Infection Following: None Review of Systems - Review of Systems Systems not reviewed;Unavailable: Other (nonverbal (Down synd/autism)) Past Patient History - Infectious Disease Hx of Infectious Diseases: None, VRE - Tetanus Immunizations Tetanus Immunization: Unknown - Past Medical History & Family History Past Medical History?: Yes Past Family History: Reviewed and not pertinent - Past Social History Smoking Status: Never Smoked Chewing Tobacco Use: No Cigar Use: No Alcohol: None Drugs: Denies Home Situation {Lives}: With Family (mother) Domestic Violence: Negative - CARDIAC Hx Hypertension: Yes Hx Pacemaker: No - PULMONARY Hx Respiratory Disorders: No - NEUROLOGICAL Hx 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 last changed Jan 01, 2018 - PSYCHIATRIC Hx Substance Use: No - SURGICAL HISTORY Hx Surgeries: Yes Hx Vascular Access Device: Yes Other/Comment: CYSTOSCOPY. NEPHROSTOMY TUBES, ROWDY.- removed. kidney stent ? - ANESTHESIA Hx Anesthesia: Yes Hx Anesthesia Reactions: No Hx Malignant Hyperthermia: No Meds Allergies/Adverse Reactions: Allergies Allergy/AdvReac Type Severity Reaction Status Date / Time No Known Allergies Allergy Verified 01/22/18 17:48 Physical Exam - Constitutional Appears: Non-toxic, No Acute Distress, Younger Than Stated Age - Head Exam Head Exam: ATRAUMATIC, NORMAL INSPECTION, NORMOCEPHALIC - Eye Exam Eye Exam: EOMI, Normal appearance - ENT Exam ENT Exam: Mucous Membranes Moist, Normal Exam - Neck Exam Neck exam: Positive for: Normal Inspection - Respiratory Exam Respiratory Exam: Clear to Auscultation Bilateral, NORMAL BREATHING PATTERN - Cardiovascular Exam Cardiovascular Exam: REGULAR RHYTHM, +S1, +S2 - GI/Abdominal Exam GI & Abdominal Exam: Normal Bowel Sounds, Soft. absent: Tenderness - Rectal Exam Rectal Exam: Deferred - Exam Exam: absent: Circumcision, Scrotal Swelling External exam: absent: Erythema, Lacerations, Lesions Additional comments: Reyes in place, no rash, mild irritation/raw skin below foreskin - Back Exam Back exam: NORMAL INSPECTION - Neurological Exam Neurological exam: Alert Additional comments: nonverbal - Psychiatric Exam Psychiatric exam: Normal Affect Additional comments: nonverbal - Skin Skin Exam: Dry, Intact, Normal Color, Warm Results - Vital Signs Recent Vital Signs: Last Vital Signs Temp 99.3 F 01/22/18 22:12 Pulse 72 01/22/18 22:12 Resp 14 01/22/18 22:12 BP 100/95 H 01/22/18 22:12 Pulse Ox 99 01/22/18 22:12 - Labs Result Diagrams: 01/22/18 18:44 01/22/18 18:44 Labs: Laboratory Results - last 24 hr 01/22/18 01/22/18 01/22/18 18:44 18:44 18:44 WBC 7.8 D RBC 3.83 L Hgb 11.8 L D Hct 34.6 L MCV 90.5 D MCH 30.8 MCHC 34.0 RDW 16.3 H Plt Count 244 MPV 7.4 Neut % (Auto) 64.0 Lymph % (Auto) 25.3 Jay % (Auto) 8.7 Eos % (Auto) 1.0 Baso % (Auto) 1.0 Neut # (Auto) 5.0 Lymph # (Auto) 2.0 Jay # (Auto) 0.7 Eos # (Auto) 0.1 Baso # (Auto) 0.1 Sodium 140 Potassium 4.0 Chloride 94 L Carbon Dioxide 32 H Anion Gap 18 BUN 48 H Creatinine 6.2 H Est GFR ( Amer) 13 Est GFR (Non-Af Amer) 11 Random Glucose 90 Calcium 8.7 Total Bilirubin 0.2 AST 91 H D ALT 133 H D Alkaline Phosphatase 96 Total Protein 8.2 Albumin 4.1 Globulin 4.0 H Albumin/Globulin Ratio 1.0 Lipase 79 Urine Color Yellow Urine Clarity Turbid Urine pH 6.0 Ur Specific [place] 1.010 Urine Protein 2+ H Urine Glucose (UA) Normal Urine Ketones Negative Urine Blood 3+ H Urine Nitrate Negative Urine Bilirubin Negative Urine Urobilinogen Normal Ur Leukocyte Esterase 3+ H Urine WBC (Auto) 1181 H Urine RBC (Auto) 181 H Urine WBC Clumps (Auto) Many H Urine Bacteria Mod H Assessment & Plan - Assessment and Plan (Free Text) Assessment: Patient is a 27 yo male with a history of Down syndrome and ESRD who presented with cloudy urine. Patient was found to have significant UTI and hydronephrosis. Plan: UTI and b/l hydronephrosis - On admission UA: LE +3, WBC 1181, many WBC clumps, RBC 181, moderate bacteria - F/u urine Cx - CT A/P w/o contrast: severe b/l (R>L) hydronephrosis, NO pyelonephritis - Vancomycin 1 g x1 - Zosyn 3.375 mg x1 - ID consulted (Dr. Ku) ESRD- HD on -Thu - Continue HD - Nephro-Robel daily - Nephro consulted (Dr. Dixon) Obstructive uropathy - B/l ureteral stents in place - Reyes catheter in place Transaminitis, acute- AST 91, ALT 133 (01/10/18 AST 24, ALT 39) - 06/2017 hepatitis panel negative - Avoid meds metabolized extensively by liver - Monitor CMP IVF: not indicated GI ppx: Pepcid 20 mg PO daily VTE ppx: SCDs Diet: renal Code status: full code
[2018-01-23 08:59] LABS: BASO # 0.1 K/uL (0.0-0.2); BASO % 1.9 % (0.0-2.0); EOS # 0.1 K/uL (0.0-0.7); EOS % 1.7 % (0.0-4.0); HEMOGLOBIN 10.6 g/dL (12.0-18.0); LYMPH # 1.4 K/uL (1.0-4.3); LYMPH % 30.5 % (20.0-40.0); MEAN CELL VOLUME 92.1 fL (80.0-94.0); MEAN CORPUSCULAR HEMOGLOBIN 31.2 pg (27.0-31.0); MEAN CORPUSCULAR HGB CONC 33.8 g/dL (33.0-37.0); MEAN PLATELET VOLUME 7.5 fL (7.2-11.7); MONO # 0.5 K/uL (0.0-0.8); MONO % 11.1 % (0.0-10.0); NEUT # 2.5 K/uL (1.8-7.0); NEUT % 54.8 % (50.0-75.0); NRBC % 0.2 % (0.0-2.0); RBC 3.4 Mil/uL (4.40-5.90); RED CELL DISTRIBUTION WIDTH 16.7 % (11.5-14.5); WHITE BLOOD COUNT 4.6 K/uL (4.8-10.8)
[2018-01-23 09:03] LABS: INR 2.6; PROTHROMBIN TIME 28.2 SECONDS (9.7-12.2)
[2018-01-23 09:15] LABS: ALBUMIN 3.7 g/dL (3.5-5.0); ALT/SGPT 105 U/L (21-72); AST/SGOT 48 U/L (17-59); BLOOD UREA NITROGEN 59 mg/dL (9-20); CALCIUM 8.4 mg/dl (8.6-10.4); GFR NON-AFRICAN AMERICAN 9
[2018-01-23] MEDS: Multivitamin Vitamin B Complex (Nephro-Vite) Tab PO SCH (09:40)
[2018-01-23] MEDS ORDERED: EPOETIN ALFA 4,000 UNIT/ML ML Dialysis IV SCH (10:00)
--- NOTE | 2018-01-23 12:04 | CP.PCM.PN ---
Subjective - Date & Time of Evaluation Date of Evaluation: 01/23/18 Time of Evaluation: 11:54 - Subjective Subjective: PGYIII progress note for Dr. Cutler Pt seen and examined at bedside. Family at bedside and help with history. Pt appears to be comfortable and interacting with environment. ROS unobtainable due to hx of severe Down's syndrome. Nick in play with yellow clear urine draining. Objective - Vital Signs/Intake and Output Vital Signs (last 24 hours): Temp Pulse Resp BP Pulse Ox 97.3 F L 75 20 84/55 L 99 01/23/18 08:00 01/23/18 08:00 01/23/18 08:00 01/23/18 08:00 01/23/18 08:00 Intake and Output: 01/23/18 01/23/18 06:59 18:59 Intake Total 120 Output Total 100 Balance 20 - Medications Medications: Current Medications Epoetin Raza (Procrit) 4,000 unit IV TTS [place] Famotidine (Pepcid) 20 mg PO DAILY [place]ALO Last Admin: 01/23/18 09:41 Dose: 20 mg Vitamin B Complex/Vit C/Folic Acid (Nephro-Robel) 1 tab PO DAILY ITALO Last Admin: 01/23/18 09:40 Dose: 1 tab - Labs Labs: 01/23/18 08:50 01/23/18 08:50 PT 28.2 SECONDS (9.7-12.2) H 01/23/18 08:50 INR 2.6 01/23/18 08:50 - Constitutional Appears: Non-toxic, No Acute Distress - Head Exam Head Exam: ATRAUMATIC, NORMOCEPHALIC - ENT Exam ENT Exam: Mucous Membranes Moist - Respiratory Exam Respiratory Exam: Clear to Ausculation Bilateral. absent: Rales, Rhonchi, Wheezes - Cardiovascular Exam Cardiovascular Exam: REGULAR RHYTHM, +S1, +S2 - GI/Abdominal Exam GI & Abdominal Exam: Soft, Normal Bowel Sounds. absent: Distended, Firm, Guarding, Rigid, Tenderness, Organomegaly - Neurological Exam Neurological Exam: Awake. absent: Oriented x3 - Skin Skin Exam: Dry, Intact, Normal Color, Warm Assessment and Plan - Assessment and Plan (Free Text) Assessment: Patient is a 27 yo male with a history of Down syndrome and ESRD who presented with cloudy urine. Patient was found to have significant UTI and hydronephrosis. Plan: UTI and b/l hydronephrosis - On admission UA: LE +3, WBC 1181, many WBC clumps, RBC 181, moderate bacteria - F/u urine Cx - CT A/P w/o contrast: severe b/l (R>L) hydronephrosis, NO pyelonephritis. official report is pending - Vancomycin 1 g x1 and Zosyn 3.375 mg x1 given in ED - ID consulted (Dr. Ku). Due to past admission on 01/20/18 with UTI positive for klebsiella and pseudomonas, pt will be started on cefepime 1 g qd and vancomycin 1 gram with HD per Dr. Ku. Awaiting further recs from Dr. Tate who is covering for Dr. Ku ESRD- HD on -Thu - Continue HD - Nephro-Robel daily - Nephro consulted (Dr. Dixon) Obstructive uropathy - B/l ureteral stents in place - Nick catheter in place Transaminitis, acute - Trending down - 06/2017 hepatitis panel negative - Avoid meds metabolized extensively by liver - Monitor CMP Hx of DVT -Pt on coumadin 4 mg po HS at home. Will continue current dose. -INR is 2.6 GI ppx: Pepcid 20 mg PO daily VTE ppx: SCDs Diet: renal Code status: full code Case will be discussed with attending, Dr. Cutler
--- NOTE | 2018-01-23 12:31 | CT ---
Date of service: 01/22/2018 PROCEDURE: CT Abdomen and Pelvis without intravenous contrast HISTORY: dysuria r/o pyelo COMPARISON: None. TECHNIQUE: Helical CT of the abdomen and pelvis was performed without oral or intravenous contrast as per referring physician request. Contrast dose: None Radiation dose: Total exam DLP = 465.87 mGy-cm. This CT exam was performed using one or more of the following dose reduction techniques: Automated exposure control, adjustment of the mA and/or kV according to patient size, and/or use of iterative reconstruction technique. FINDINGS: LOWER THORAX: Tips of right central venous permanent dialysis catheter terminate in the right atrium. LIVER: Unremarkable. No gross lesion or ductal dilatation. GALLBLADDER AND BILE DUCTS: Contracted gallbladder noted nearly completely. PANCREAS: Unremarkable. No gross lesion or ductal dilatation. SPLEEN: Unremarkable. ADRENALS: Unremarkable. No mass. KIDNEYS AND URETERS: Advanced stage 5 hydronephrosis noted right kidney, with right hydroureter are identified as well. A thin mantle of residual renal parenchyma seen in the periphery of right renal hydronephrosis. No radiodense urolithiasis identified. [id number] left hydronephrosis appreciate with a thicker rim of soft tissues surrounding it. Both renal appearances suggest probable chronic hydronephrosis. No perinephric reaction or fluid collection appreciable. Bilateral double-J ureteral stents have been placed with the left side in good apparent position on the right terminating at the distal right ureter. VASCULATURE: Unremarkable. No aortic aneurysm. BOWEL: Unremarkable. No obstruction. No gross mural thickening. APPENDIX: No definite CT evidence of appendicitis. The appendix is not identified clearly. PERITONEUM: Unremarkable. No free fluid. No free air. LYMPH NODES: Unremarkable. No enlarged lymph nodes. BLADDER: Completely decompressed by Nick catheter. REPRODUCTIVE: Unremarkable. BONES: No acute fracture. OTHER FINDINGS: None. IMPRESSION: Gross right hydronephrosis and moderate right hydroureter. [id number] left hydronephrosis. No left hydroureter. Bilateral double-J ureteral stent in position, with the left stent well placed and left stent terminating at the distal right ureter. Nick catheter decompresses urinary bladder noted. No secondary signs of pyelonephritis such is perinephric reaction or fluid collection appreciated. Lack of intravenous contrast limits interpretation and further clinical correlation is advised. Further clinical correlation advised.
--- NOTE | 2018-01-23 16:28 | CP.PCM.CON ---
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 neg for HIT/hypercoag work up Anemia, hx of MR vit D def with secondary hyperparathyroidism chronic systolic CHF with LVEF 35% now LVEF normal on latest echo november 2017 s/p bilateral ureteral stents 12/08/17 Plan Plan for dialysis today as TTS schedule. continue with nephrovite 1 tab/day not on RAAS chaitanya due to low BP. latest LVEF normal urology and ID consult pt was on systemic a/c with oral coumadin last Hb 10.6 ordered WILBER with HD outpt PTH and Phos under control ? consider chronic suppressive therapy for recurrent UTIs Dose meds/antibiotics for dialysis status. Avoid fleets enema/magnesium based laxatives. Avoid nephrotoxins/NSAIDs Glycemic control Further work up/management as per primary team. Thanks for allowing me to participate in care of your patient. Will follow patient with you. Please call if any Qs. 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 overnight events noted. per mother, pt is doing better, eating well Physical Examination: General Appearance: Comfortable, in no acute respiratory distress Vitals reviewed and noted as below Head; Atraumatic, normocephalic ENT: no ulcers no thrush. Tongue is midline. Oropharynx: no rash or ulcers. EYES: Pupils are equal, round and reactive to light accommodation. Eye muscles and extraocular movement intact. Sclera is anicteric. Neck; supple no lymphadenopathy, no thyromegaly or bruit Lungs: Normal respiratory rate/effort. Breath sounds bilateral equal and clear Heart: Normal rate. s1s2 normal. No rub or gallop. Extremities: no edema. No varicose veins Neurological: Patient is alert, awake, has severe MR, non communicative, non verbal Skin: Warm and dry. Normal turgor. No rash. Palpitation: Normal elasticity for age Abdomen: unable as pt not allowing Psych: no insight MSK: no joint tenderness or swelling. Digits and nails normal, no deformity : has smith access: permacath Labs/imaging reviewed. Past medical history, past surgical history, family history, social history, allergy reviewed and noted as below Family hx: no hx of CKD. 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 last changed Jan 01, 2018 - PSYCHIATRIC Hx Substance Use: No - SURGICAL HISTORY Hx Surgeries: Yes Hx Vascular Access Device: Yes Other/Comment: CYSTOSCOPY. NEPHROSTOMY TUBES, ROWDY.- removed. kidney stent ? - ANESTHESIA Hx Anesthesia: Yes Hx Anesthesia Reactions: No Hx Malignant Hyperthermia: No Meds Allergies/Adverse Reactions: Allergies Allergy/AdvReac Type Severity Reaction Status Date / Time No Known Allergies Allergy Verified 01/22/18 17:48 - Medications Medications: Current Medications Epoetin Raza (Procrit) 4,000 unit IV TTS [facility] Last Admin: 01/23/18 12:38 Dose: 4,000 unit Famotidine (Pepcid) 20 mg PO DAILY [facility] Last Admin: 01/23/18 09:41 Dose: 20 mg Heparin Sodium (Porcine) (Heparin) 4,600 units IVP TTS [facility] Stop: 02/04/18 10:01 Last Admin: 01/23/18 15:22 Dose: 4,600 units Cefepime HCl 1 gm/ Dextrose 50 mls @ 100 mls/hr IVPB DAILY [facility] PRN Reason: Protocol Vancomycin HCl 1 gm/ Sodium (Chloride) 250 mls @ 166.7 mls/hr IVPB TTS [facility] PRN Reason: Protocol Vitamin B Complex/Vit C/Folic Acid (Nephro-Robel) 1 tab PO DAILY [facility] Last Admin: 01/23/18 09:40 Dose: 1 tab Results - Vital Signs Recent Vital Signs: Last Vital Signs Temp 97.7 F 01/23/18 11:15 Pulse 82 01/23/18 11:15 Resp 18 01/23/18 11:15 BP 102/55 L 01/23/18 14:30 Pulse Ox 99 01/23/18 08:00 - Labs Result Diagrams: 01/23/18 08:50 01/23/18 08:50 Labs: Laboratory Results - last 24 hr 01/22/18 01/22/18 01/22/18 18:44 18:44 18:44 WBC 7.8 D RBC 3.83 L Hgb 11.8 L D Hct 34.6 L MCV 90.5 D MCH 30.8 MCHC 34.0 RDW 16.3 H Plt Count 244 MPV 7.4 Neut % (Auto) 64.0 Lymph % (Auto) 25.3 Lyman % (Auto) 8.7 Eos % (Auto) 1.0 Baso % (Auto) 1.0 Neut # (Auto) 5.0 Lymph # (Auto) 2.0 Lyman # (Auto) 0.7 Eos # (Auto) 0.1 Baso # (Auto) 0.1 PT INR Sodium 140 Potassium 4.0 Chloride 94 L Carbon Dioxide 32 H Anion Gap 18 BUN 48 H Creatinine 6.2 H Est GFR ( Amer) 13 Est GFR (Non-Af Amer) 11 Random Glucose 90 Calcium 8.7 Phosphorus Magnesium Total Bilirubin 0.2 AST 91 H D ALT 133 H D Alkaline Phosphatase 96 Total Protein 8.2 Albumin 4.1 Globulin 4.0 H Albumin/Globulin Ratio 1.0 Lipase 79 Urine Color Yellow Urine Clarity Turbid Urine pH 6.0 Ur Specific Mangum 1.010 Urine Protein 2+ H Urine Glucose (UA) Normal Urine Ketones Negative Urine Blood 3+ H Urine Nitrate Negative Urine Bilirubin Negative Urine Urobilinogen Normal Ur Leukocyte Esterase 3+ H Urine WBC (Auto) 1181 H Urine RBC (Auto) 181 H Urine WBC Clumps (Auto) Many H Urine Bacteria Mod H 01/23/18 01/23/18 01/23/18 08:50 08:50 08:50 WBC 4.6 L RBC 3.40 L Hgb 10.6 L Hct 31.3 L MCV 92.1 MCH 31.2 H MCHC 33.8 RDW 16.7 H Plt Count 198 MPV 7.5 Neut % (Auto) 54.8 Lymph % (Auto) 30.5 Lyman % (Auto) 11.1 H Eos % (Auto) 1.7 Baso % (Auto) 1.9 Neut # (Auto) 2.5 Lymph # (Auto) 1.4 Lyman # (Auto) 0.5 Eos # (Auto) 0.1 Baso # (Auto) 0.1 PT 28.2 H INR 2.6 Sodium 140 Potassium 4.0 Chloride 99 Carbon Dioxide 28 Anion Gap 17 BUN 59 H Creatinine 7.4 H* Est GFR ( Amer) 11 Est GFR (Non-Af Amer) 9 Random Glucose 84 Calcium 8.4 L Phosphorus 5.7 H Magnesium 2.1 Total Bilirubin 0.2 AST 48 ALT 105 H D Alkaline Phosphatase 69 Total Protein 7.4 Albumin 3.7 Globulin 3.7 Albumin/Globulin Ratio 1.0 Lipase Urine Color Urine Clarity Urine pH Ur Specific Mangum Urine Protein Urine Glucose (UA) Urine Ketones Urine Blood Urine Nitrate Urine Bilirubin Urine Urobilinogen Ur Leukocyte Esterase Urine WBC (Auto) Urine RBC (Auto) Urine WBC Clumps (Auto) Urine Bacteria
--- NOTE | 2018-01-24 00:17 | CP.PCM.PN ---
Subjective - Date & Time of Evaluation Date of Evaluation: 01/24/18 Time of Evaluation: 06:05 - Subjective Subjective: PGY-1 Grecia Franz D.O. Medicine progress note for Dr. Cutler's service: Patient is seen and examined. Patient's mother is not present. Patient is sitting up in bed smiling. He does not seem to be in any distress/discomfort. Patient nonverbal- unable to obtain ROS. Objective - Vital Signs/Intake and Output Vital Signs (last 24 hours): Temp Pulse Resp BP Pulse Ox 97.7 F 74 20 92/56 L 100 01/23/18 16:38 01/23/18 16:38 01/23/18 16:38 01/23/18 16:38 01/23/18 16:38 - Medications Medications: Current Medications Epoetin Raza (Procrit) 4,000 unit IV TTS [facility] Last Admin: 01/23/18 12:38 Dose: 4,000 unit Famotidine (Pepcid) 20 mg PO DAILY [facility] Last Admin: 01/23/18 09:41 Dose: 20 mg Heparin Sodium (Porcine) (Heparin) 4,600 units IVP TTS [facility] Stop: 02/04/18 10:01 Last Admin: 01/23/18 15:22 Dose: 4,600 units Cefepime HCl 1 gm/ Dextrose 50 mls @ 100 mls/hr IVPB DAILY [facility] PRN Reason: Protocol Last Admin: 01/23/18 17:19 Dose: 100 mls/hr Vancomycin HCl 1 gm/ Sodium (Chloride) 250 mls @ 166.7 mls/hr IVPB TTS [facility] PRN Reason: Protocol Last Admin: 01/23/18 17:19 Dose: 166.7 mls/hr Vitamin B Complex/Vit C/Folic Acid (Nephro-Robel) 1 tab PO DAILY [facility] Last Admin: 01/23/18 09:40 Dose: 1 tab - Labs Labs: 01/23/18 08:50 01/23/18 08:50 PT 28.2 SECONDS (9.7-12.2) H 01/23/18 08:50 INR 2.6 01/23/18 08:50 - Constitutional Appears: Non-toxic, No Acute Distress - Head Exam Head Exam: ATRAUMATIC, NORMAL INSPECTION, NORMOCEPHALIC - Eye Exam Eye Exam: Normal appearance - ENT Exam ENT Exam: Mucous Membranes Moist, Normal Exam - Neck Exam Neck Exam: Normal Inspection - Respiratory Exam Respiratory Exam: Clear to Ausculation Bilateral, NORMAL BREATHING PATTERN - Cardiovascular Exam Cardiovascular Exam: REGULAR RHYTHM, +S1, +S2 - GI/Abdominal Exam GI & Abdominal Exam: Soft. absent: Tenderness - Rectal Exam Rectal Exam: Deferred - Exam Additional comments: Nick in place, clear yellow urine - Extremities Exam Extremities Exam: Normal Inspection - Back Exam Back Exam: NORMAL INSPECTION - Neurological Exam Neurological Exam: Alert, Awake - Psychiatric Exam Psychiatric exam: Normal Affect Additional comments: unable to articulate - Skin Skin Exam: Dry, Intact, Normal Color, Warm Assessment and Plan - Assessment and Plan (Free Text) Assessment: Patient is a 27 yo male with a history of Down syndrome and ESRD who presented with cloudy urine. Patient was found to have significant UTI and hydronephrosis. Plan: UTI and b/l hydronephrosis - On admission UA: LE +3, WBC 1181, many WBC clumps, RBC 181, moderate bacteria - F/u urine Cx - CT A/P w/o contrast: severe b/l (R>L) hydronephrosis, NO pyelonephritis. official report is pending - Vancomycin 1 g x1 and Zosyn 3.375 mg x1 given in ED - ID consulted (Dr. Ku)- Due to past admission (dc on 01/20/18) with UTI positive for Klebsiella and Pseudomonas, will start pt on on cefepime 1 g daily and vancomycin 1 g with HD (TTS). Awaiting further recs from Dr. Tate who is covering for Dr. Ku ESRD- HD on - Continue HD - Nephro-Robel daily - Procrit 4000 units IV TTS - Nephro consulted (Dr. Dixon) Obstructive uropathy - B/l ureteral stents in place - Nick catheter in place Transaminitis, acute- trending down - 06/2017 hepatitis panel negative - HBV surface Ag pending - Avoid meds metabolized extensively by liver - Monitor CMP Hx of DVT -Pt on Coumadin 4 mg PO HS at home. Will continue current dose. -INR is 2.6- monitor daily and adjust Coumadin as needed IVF: not indicated GI ppx: Pepcid 20 mg PO daily VTE ppx: heparin 15389 units IV TTS, SCDs Diet: renal Code status: full code
[2018-01-24 09:01] LABS: BASO # 0.1 K/uL (0.0-0.2); BASO % 1.7 % (0.0-2.0); EOS # 0.1 K/uL (0.0-0.7); EOS % 2.4 % (0.0-4.0); LYMPH # 1.4 K/uL (1.0-4.3); LYMPH % 28.9 % (20.0-40.0); MEAN CELL VOLUME 91.8 fL (80.0-94.0); MEAN CORPUSCULAR HEMOGLOBIN 30.5 pg (27.0-31.0); MEAN CORPUSCULAR HGB CONC 33.3 g/dL (33.0-37.0); MEAN PLATELET VOLUME 7.7 fL (7.2-11.7); MONO # 0.5 K/uL (0.0-0.8); MONO % 10.9 % (0.0-10.0); NEUT # 2.7 K/uL (1.8-7.0); NEUT % 56.1 % (50.0-75.0); NRBC % 0.2 % (0.0-2.0); RBC 3.61 Mil/uL (4.40-5.90); RED CELL DISTRIBUTION WIDTH 16.5 % (11.5-14.5); WHITE BLOOD COUNT 4.8 K/uL (4.8-10.8)
[2018-01-24 09:22] LABS: INR 2.4; PROTHROMBIN TIME 26.6 SECONDS (9.7-12.2)
[2018-01-24 09:38] LABS: ALBUMIN 3.8 g/dL (3.5-5.0); CALCIUM 8.3 mg/dl (8.6-10.4)
[2018-01-24] MEDS: Multivitamin Vitamin B Complex (Nephro-Vite) Tab PO SCH (09:53)
--- NOTE | 2018-01-24 12:07 | CP.PCM.PN ---
Subjective - Date & Time of Evaluation Date of Evaluation: 01/24/18 Time of Evaluation: 12:06 - Subjective Subjective: Nephrology Consultation Note: Assessment: stable UTI ESRD on HD via permacath (TTS) hx of b/l massive hydronephrosis and loss of renal cortex s/p b/l nephrostomy left femoral DVT. neg for HIT/hypercoag work up Anemia, hx of MR vit D def with secondary hyperparathyroidism chronic systolic CHF with LVEF 35% now LVEF normal on latest echo november 2017 s/p bilateral ureteral stents 12/08/17 Plan Plan for dialysis thursday as TTS schedule. continue with nephrovite 1 tab/day not on RAAS chaitanya due to low BP. latest LVEF normal urology and ID consult pt was on systemic a/c with oral coumadin last Hb 10.6 ordered WILBER with HD q wk outpt PTH and Phos under control ? consider chronic suppressive therapy for recurrent UTIs Dose meds/antibiotics for dialysis status. Avoid fleets enema/magnesium based laxatives. Avoid nephrotoxins/NSAIDs Glycemic control Further work up/management as per primary team. Thanks for allowing me to participate in care of your patient. Will follow patient with you. Please call if any Qs. had d/w team and mother Dr Phillip Dixon Office: [phone] CC: unable to obtain reason for consult; ESRD HPI: Pt is a 27 M with MR and chronic obstructive uropathy and progressive CKD as a result of obstruction, now ESRD on HD (TTS) @ [place] unit, CHF, DVT came with cloudy urine and found to have UTI renal consult for ESRD management hx provided by mother, pt now better had b/l nephrostomy tubes which were changed to indwelling catheter with b/l ureteral stents ROS: pt unable to provide due to MR. overnight events noted. per mother, pt is doing better, eating well Physical Examination: General Appearance: Comfortable, in no acute respiratory distress Vitals reviewed and noted as below Head; Atraumatic, normocephalic ENT: no ulcers no thrush. Tongue is midline. Oropharynx: no rash or ulcers. EYES: Pupils are equal, round and reactive to light accommodation. Eye muscles and extraocular movement intact. Sclera is anicteric. Neck; supple no lymphadenopathy, no thyromegaly or bruit Lungs: Normal respiratory rate/effort. Breath sounds bilateral equal and clear Heart: Normal rate. s1s2 normal. No rub or gallop. Extremities: no edema. No varicose veins Neurological: Patient is alert, awake, has severe MR, non communicative, non verbal Skin: Warm and dry. Normal turgor. No rash. Palpitation: Normal elasticity for age Abdomen: unable as pt not allowing Psych: no insight MSK: no joint tenderness or swelling. Digits and nails normal, no deformity : has smith access: permacath Labs/imaging reviewed. Past medical history, past surgical history, family history, social history, allergy reviewed and noted as below Family hx: no hx of CKD. Rest non-contributory Objective - Vital Signs/Intake and Output Vital Signs (last 24 hours): Temp Pulse Resp BP Pulse Ox 98.4 F 69 20 98/55 L 96 01/24/18 08:00 01/24/18 08:00 01/24/18 08:00 01/24/18 08:00 01/24/18 08:00 - Medications Medications: Current Medications Epoetin Raza (Procrit) 4,000 unit IV QWK [facility] Famotidine (Pepcid) 20 mg PO DAILY [facility] Last Admin: 01/24/18 09:53 Dose: 20 mg Heparin Sodium (Porcine) (Heparin) 4,600 units IVP TTS [facility] Stop: 02/04/18 10:01 Last Admin: 01/23/18 15:22 Dose: 4,600 units Cefepime HCl 1 gm/ Dextrose 50 mls @ 100 mls/hr IVPB DAILY [facility] PRN Reason: Protocol Last Admin: 01/24/18 09:53 Dose: 100 mls/hr Vancomycin HCl 1 gm/ Sodium (Chloride) 250 mls @ 166.7 mls/hr IVPB TTS [facility] PRN Reason: Protocol Last Admin: 01/23/18 17:19 Dose: 166.7 mls/hr Vitamin B Complex/Vit C/Folic Acid (Nephro-Robel) 1 tab PO DAILY [facility] Last Admin: 01/24/18 09:53 Dose: 1 tab Warfarin Sodium (Coumadin) 4 mg PO 1800 [facility] Stop: 01/24/18 18:01 - Labs Labs: 01/24/18 08:56 01/24/18 08:56 PT 26.6 SECONDS (9.7-12.2) H 08/26/18 08:56 INR 2.4 01/24/18 08:56
--- NOTE | 2018-01-24 12:51 | CP.PCM.CON ---
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 last changed Jan 01, 2018 - PSYCHIATRIC Hx Substance Use: No - SURGICAL HISTORY Hx Surgeries: Yes Hx Vascular Access Device: Yes Other/Comment: CYSTOSCOPY. NEPHROSTOMY TUBES, ROWDY.- removed. kidney stent ? - ANESTHESIA Hx Anesthesia: Yes Hx Anesthesia Reactions: No Hx Malignant Hyperthermia: No Meds Allergies/Adverse Reactions: Allergies Allergy/AdvReac Type Severity Reaction Status Date / Time No Known Allergies Allergy Verified 01/22/18 17:48 - Medications Medications: Current Medications Epoetin Raza (Procrit) 4,000 unit IV QWK [facility] Famotidine (Pepcid) 20 mg PO DAILY [facility] Last Admin: 01/24/18 09:53 Dose: 20 mg Heparin Sodium (Porcine) (Heparin) 4,600 units IVP TTS [facility] Stop: 02/04/18 10:01 Last Admin: 01/23/18 15:22 Dose: 4,600 units Cefepime HCl 1 gm/ Dextrose 50 mls @ 100 mls/hr IVPB DAILY [facility] PRN Reason: Protocol Last Admin: 01/24/18 09:53 Dose: 100 mls/hr Vancomycin HCl 1 gm/ Sodium (Chloride) 250 mls @ 166.7 mls/hr IVPB TTS [facility] PRN Reason: Protocol Last Admin: 01/23/18 17:19 Dose: 166.7 mls/hr Vitamin B Complex/Vit C/Folic Acid (Nephro-Robel) 1 tab PO DAILY [facility] Last Admin: 01/24/18 09:53 Dose: 1 tab Warfarin Sodium (Coumadin) 4 mg PO 1800 [facility] Stop: 01/24/18 18:01 Results - Vital Signs Recent Vital Signs: Last Vital Signs Temp 98.4 F 01/24/18 08:00 Pulse 69 01/24/18 08:00 Resp 20 01/24/18 08:00 BP 98/55 L 01/24/18 08:00 Pulse Ox 96 01/24/18 08:00 - Labs Result Diagrams: 01/24/18 08:56 01/24/18 08:56 Labs: Laboratory Results - last 24 hr 01/23/18 01/24/18 01/24/18 08:50 08:56 08:56 WBC 4.8 RBC 3.61 L Hgb 11.0 L Hct 33.2 L MCV 91.8 MCH 30.5 MCHC 33.3 RDW 16.5 H Plt Count 206 MPV 7.7 Neut % (Auto) 56.1 Lymph % (Auto) 28.9 [place] % (Auto) 10.9 H Eos % (Auto) 2.4 Baso % (Auto) 1.7 Neut # (Auto) 2.7 Lymph # (Auto) 1.4 [place] # (Auto) 0.5 Eos # (Auto) 0.1 Baso # (Auto) 0.1 PT 26.6 H INR 2.4 Sodium 140 Potassium 4.0 Chloride 99 Carbon Dioxide 28 Anion Gap 17 BUN 59 H Creatinine 7.4 H* Est GFR ( Amer) 11 Est GFR (Non-Af Amer) 9 Random Glucose 84 Calcium 8.4 L Phosphorus 5.7 H Magnesium 2.1 Total Bilirubin 0.2 AST 48 ALT 105 H D Alkaline Phosphatase 69 Total Protein 7.4 Albumin 3.7 Globulin 3.7 Albumin/Globulin Ratio 1.0 01/24/18 08:56 WBC RBC Hgb Hct MCV MCH MCHC RDW Plt Count MPV Neut % (Auto) Lymph % (Auto) [place] % (Auto) Eos % (Auto) Baso % (Auto) Neut # (Auto) Lymph # (Auto) [place] # (Auto) Eos # (Auto) Baso # (Auto) PT INR Sodium 138 Potassium 4.3 Chloride 98 Carbon Dioxide 28 Anion Gap 16 BUN 30 H Creatinine 5.0 H Est GFR ( Amer) 17 Est GFR (Non-Af Amer) 14 Random Glucose 102 Calcium 8.3 L Phosphorus 5.2 H Magnesium 2.0 Total Bilirubin 0.2 AST 48 ALT 95 H Alkaline Phosphatase 65 Total Protein 7.5 Albumin 3.8 Globulin 3.8 Albumin/Globulin Ratio 1.0
--- NOTE | 2018-01-24 16:23 | US ---
Date of service: 01/24/2018 PROCEDURE: Ultrasound of the Kidneys HISTORY: obstructive uropathy COMPARISON: None available. TECHNIQUE: Sonogram of the kidneys. FINDINGS: RIGHT KIDNEY: Measures: 20.0 x 7.8 x 9.2 cm. The right kidney appears to be a fluid-filled structure with a thin mantle of soft tissue in the periphery. It is unlikely there is not much if any residual renal function remaining in this kidney. Nuclear renal scan can be performed for additional characterization. No gross mass is seen related and there is no perinephric fluid collection evident. Proximal segment of the double-J right ureteral stent is in the right renal pelvis. LEFT KIDNEY: Measures: 10.6 x 4.4 x 4.2 cm. Mild left hydronephrosis identified with poor corticomedullary differentiation identified. This may reflect mild intrinsic medical renal disease. No gross solid mass appreciable. A low left double-J ureteral stent proximal segment is identified entry into an apparent upper pole calyx. Underlying soft tissue lesion is difficult to exclude due to disorganized corticomedullary echotexture. OTHER FINDINGS: Urine bladder is completely collapsed by Nick catheter with distal ureteral stents not well identified secondarily. IMPRESSION: Gross right hydronephrosis within a markedly dilated right kidney with a thin mantle of residuals renal parenchyma in the periphery. Mild left hydronephrosis identified. Underlying lesion difficult to exclude in the left kidney due to disorganized corticomedullary echotexture. Intrinsic medical renal disease is questioned bilaterally. Follow-up nuclear renal scan can be performed performed to evaluate for split renal function evaluation. Little renal function is suspected at the right kidney. Urinary bladder completely decompressed by Nick catheter. Distal segments of bilateral double-J ureteral stents are not well identified due to collapse of the urinary bladder.
[2018-01-25 07:31] LABS: INR 2.2; PROTHROMBIN TIME 24.1 SECONDS (9.7-12.2)
[2018-01-25 07:43] LABS: BASO # 0.1 K/uL (0.0-0.2); BASO % 1.6 % (0.0-2.0); EOS # 0.1 K/uL (0.0-0.7); LYMPH # 1.4 K/uL (1.0-4.3); LYMPH % 32.5 % (20.0-40.0); MEAN CELL VOLUME 92.4 fL (80.0-94.0); MEAN CORPUSCULAR HEMOGLOBIN 30.9 pg (27.0-31.0); MEAN CORPUSCULAR HGB CONC 33.4 g/dL (33.0-37.0); MEAN PLATELET VOLUME 7.7 fL (7.2-11.7); MONO # 0.5 K/uL (0.0-0.8); NEUT # 2.3 K/uL (1.8-7.0); NEUT % 51.9 % (50.0-75.0); NRBC % 0.2 % (0.0-2.0); RBC 3.57 Mil/uL (4.40-5.90); RED CELL DISTRIBUTION WIDTH 16.9 % (11.5-14.5); WHITE BLOOD COUNT 4.4 K/uL (4.8-10.8)
--- NOTE | 2018-01-25 07:53 | CON ---
Copied To: Trey Tate MD Attending MD: Trey Tate MD DATE: 01/24/2018 INFECTIOUS DISEASE CONSULT Requested by Dr. Ku but Dr. Ku is away and I am covering him. HISTORY OF PRESENT ILLNESS: This patient is 27-year-old. He has history of Down syndrome and chronic kidney disease. He gets dialysis on Tuesdays, , and Saturdays. He has had multiple episodes of UTI. He has a chronic indwelling Nick catheter, and the mother says that it was changed on 01/01/2018 and then it was changed again in one week, and then he came here on Thursday. This time, they only changed the bag, and he had multiple episodes of UTI and pyelonephritis. He was having dark cloudy urine and the mom said that he does not communicate. She has to figure out from signs and blood in the urine or by the smell of the urine. He has had recurring UTIs, and already was taking antibiotics without improving, and then she noted that last dialysis session was yesterday, and he received the last antibiotic at that time. He has no fever, no vomiting, no other complaints. He was brought in here and he follows with the [facility]. The patient has end-stage renal disease. He also has a Perm-A-Cath on the right chest wall, which was placed 8 months ago. He has bilateral massive hydronephrosis and history of bilateral nephrostomy tubes. He has a left femoral DVT, also chronic anemia, history of MR. He suffers from chronic CHF, and he has bilateral stents which were placed on 12/08/2017, for the bilateral hydronephrosis . ALLERGIES: HE IS NOT ALLERGIC TO ANY MEDICINE. REVIEW OF SYSTEMS: Unable to get anything from the patient. He has Down syndrome. The mother is the source of it, and I have reviewed the chart, and he has had multiple admissions here, and he was here on 01/15/2017, 01/08/2018 to 01/12/2018, every month he is here. PAST SURGICAL HISTORY: He does have a Perm-A-Cath on the right chest wall at this time. Cystoscopy, and nephrostomies in the past and has bilateral stents as recorded by one of the treasury consultant. PAST MEDICAL HISTORY: He has had VRE in the past. FAMILY HISTORY: Negative. SOCIAL HISTORY: No smoking, no drinking, no alcohol abuse. Mother is very supportive. She is at the bedside. REVIEW OF SYSTEMS: History of hypertension is there. He has no palpitations, no pace maker, no pulmonary issues. Neurologically, he has autism, nonverbal and Down syndrome, but mother says he is able to walk. He has kidney issues, so he gets dialysis on Tuesdays, , and Saturdays. No diabetes, no blood disorders. He has history of eczema, and he has history of falls because he is unstable. GI: No issues. : He has had many UTIs in the past and has a chronic indwelling Nick catheter, was changed on 01/01/2018 I am told but the mother is saying it was changed once again. Has no substance abuse. MEDICATIONS: He is getting cefepime 1 g a day, Procrit, Pepcid, heparin subcu; and he is on vancomycin 1 g Tuesdays, , and Saturdays. He is on Nephro-Robel; and he is also on Coumadin for his DVT. PHYSICAL EXAMINATION: VITAL SIGNS: T-max is 98.4, pulse is 69, blood pressure is 98/55, respirations are 20. HEENT: Head is atraumatic and normocephalic. He is trying to eat. He has deformities of Down syndrome on his face. Tongue is moist. NECK: Supple. JVP is flat. LUNGS: Clear. No crackles or rales present. HEART: S1 and S2, regular. ABDOMEN: Soft. He has a catheter present. He is eating right now so I cannot disturb him anymore. EXTREMITIES: Have no edema, clubbing, or cyanosis. Has a Nick catheter. Urine appears clear at this time. Labs are noted. White count is 4.8, hemoglobin 11, hematocrit 33.2, platelet is 206. Creatinine is 5, BUN is 30, ALT is 95. Urine has GPCs. ID and sensitivity which is pending at this time, between 50,000 and 100,000; and he has had VRE in the past, but on 01/08, he had pseudomonas and Klebsiella and they were cipro-sensitive and cefepime was poorly sensitive so I am not sure I could put him back on Cipro. We will wait for the further ID and sensitivity. He was on linezolid and Tygacil, probably it is sensitive to that, but right now, he looks fine, and his blood pressure is kind of low so I am going to wait for the ID and sensitivity of this organism at this time. If he got last time which is like 2 months ago, so we will look into it. Keep the vancomycin on for now. IMPRESSION: This patient has frequent urinary tract infections, bilateral stents, history of the hydronephrosis, eng-stage renal disease, on dialysis with Down syndrome and has urinary tract infection with a chronic Nick catheter at this time. Suggest to continue with the present treatment, and we will follow the ID and sensitivity of the organism, and we will go according to that. Trey Tate MD
[2018-01-25 08:16] LABS: ALB/GLOB RATIO 0.9 (1.0-2.1); ALBUMIN 3.5 g/dL (3.5-5.0); CALCIUM 8.1 mg/dl (8.6-10.4)
--- NOTE | 2018-01-25 10:13 | CP.PCM.PN ---
Subjective - Date & Time of Evaluation Date of Evaluation: 01/25/18 Time of Evaluation: 09:00 - Subjective Subjective: PGY1 Medicine Progress note for Dr. Cutler Patient was seen and examined at bedside today and in no acute distress. Nurse reports no acute overnight events. Mother at bedside reports patient looks to be at baseline. Unable to obtain ROS secondary to patient noncommunicative from Down Syndrome. Objective - Vital Signs/Intake and Output Vital Signs (last 24 hours): Temp Pulse Resp BP Pulse Ox 98.7 F 62 20 96/65 L 96 01/25/18 08:00 01/25/18 08:00 01/25/18 08:00 01/25/18 08:00 01/25/18 08:00 Intake and Output: 01/25/18 01/25/18 06:59 18:59 Intake Total 700 Output Total 1300 Balance -600 - Medications Medications: Current Medications Epoetin Raza (Procrit) 4,000 unit IV QWK [facility] Famotidine (Pepcid) 20 mg PO DAILY [facility] Last Admin: 01/24/18 09:53 Dose: 20 mg Heparin Sodium (Porcine) (Heparin) 4,600 units IVP [facility] Stop: 02/04/18 10:01 Last Admin: 01/23/18 15:22 Dose: 4,600 units Cefepime HCl 1 gm/ Dextrose 50 mls @ 100 mls/hr IVPB DAILY [facility] PRN Reason: Protocol Last Admin: 01/24/18 09:53 Dose: 100 mls/hr Vancomycin HCl 1 gm/ Sodium (Chloride) 250 mls @ 166.7 mls/hr IVPB TTS [facility] PRN Reason: Protocol Last Admin: 01/23/18 17:19 Dose: 166.7 mls/hr Vitamin B Complex/Vit C/Folic Acid (Nephro-Robel) 1 tab PO DAILY [facility] Last Admin: 01/24/18 09:53 Dose: 1 tab - Labs Labs: 01/25/18 07:15 01/25/18 07:15 PT 24.1 SECONDS (9.7-12.2) H 01/25/18 07:15 INR 2.2 01/25/18 07:15 - Constitutional Appears: Well, Non-toxic, No Acute Distress - Head Exam Head Exam: ATRAUMATIC, NORMOCEPHALIC - ENT Exam ENT Exam: Mucous Membranes Moist - Respiratory Exam Respiratory Exam: Clear to Ausculation Bilateral, NORMAL BREATHING PATTERN. absent: Rales, Rhonchi, Wheezes - Cardiovascular Exam Cardiovascular Exam: REGULAR RHYTHM, +S1, +S2. absent: Bradycardia, Tachycardia , Diastolic murmur - GI/Abdominal Exam GI & Abdominal Exam: Soft, Normal Bowel Sounds. absent: Distended, Firm, Tenderness - Exam Additional comments: Permacath in place indwelling smith bag draining well with translucent yellow urine - Extremities Exam Additional comments: peripheral access right hand, radial pulses intact - Back Exam Back Exam: absent: CVA tenderness (L), CVA tenderness (R) - Neurological Exam Neurological Exam: Alert, Awake Additional comments: severe MR, non communicative - Psychiatric Exam Psychiatric exam: Normal Affect, Normal Mood - Skin Skin Exam: Dry, Intact, Normal Color Assessment and Plan - Assessment and Plan (Free Text) Assessment: 27 yo M with PMH Down syndrome and ESRD admitted for recurrent UTI and bilateral hydronephrosis. Plan: 1) Recurrent UTI and b/l hydronephrosis - On admission UA: LE +3, WBC 1181, many WBC clumps, RBC 181, moderate bacteria - Urine Cx (01/22) revealed Enterococcus Faecalis sensitive to Vancomycin - CT A/P w/o contrast (01/22): severe b/l (R>L) hydronephrosis, NO pyelonephritis. B/L double J ureteral stent in position with left well placed, right stent terminates in distal ureter - Bladder US (01/24): confirms CT. R kidney: 20.0x7.8x9.2cm, L kidney: 10.6x4.4x4.2cm. - ID consulted: Dr. Tate covering for Dr. Elmira armas appreciated * due to previous admission started on cefepime 1g daily and vancomycin 1g with HD (TTS). - Cefepime 1g IVPB daily (started 01/23, day 3) - Vancomycin 1g IVPB with HD (TTS) (started 01/23, today second dose) 2) ESRD, HD on TTS - Nephro consulted: Dr. Zack armas appreciated - Continue HD - Nephro-Robel daily - EPO 4000 units IV TTS 3) Obstructive uropathy - bilateral ureteral stents in place - indwelling Smith catheter in place, draining well 4) Transaminitis, acute - resolved - 06/2017 hepatitis panel negative - HBV surface Ag positive * f/u repeat hepatitis panel and viral load - received * HD informed by Nephro - will use isolation machine - Avoid meds metabolized extensively by liver - Continue trending CMP - AST: 91 -> 48 -> 48 -> 32 today - ALT: 133 -> 105 -> 95 -> 70 today 5) Hx of DVT - home Coumadin 4mg PO HS - INR is 2.2 - monitor daily and adjust Coumadin as needed 6) PPx - IVF: not indicated - GI ppx: Pepcid 20 mg PO daily - VTE ppx: heparin 4600 units IV TTS, SCDs - Diet: HHD, renal dialysis - Code status: full code d/w Dr. He Burt PGY-1
[2018-01-25] MEDS: Multivitamin Vitamin B Complex (Nephro-Vite) Tab PO SCH (11:16)
[2018-01-25 12:30] LABS: HEPATITIS B SURFACE AG Reactive (NEGATIVE)
[2018-01-25 12:31] LABS: HEP B SURFACE AG CONF CONFIRMED POSITIVE
--- NOTE | 2018-01-25 15:09 | CP.PCM.PN ---
Subjective - Date & Time of Evaluation Date of Evaluation: 01/25/18 Time of Evaluation: 15:07 - Subjective Subjective: Nephrology Consultation Note: Assessment: stable UTI ESRD on HD via permacath (TTS) hx of b/l massive hydronephrosis and loss of renal cortex s/p b/l nephrostomy now s/p ureteral stent and smith left femoral DVT. neg for HIT/hypercoag work up Anemia, hx of MR vit D def with secondary hyperparathyroidism chronic systolic CHF with LVEF 35% now LVEF normal on latest echo november 2017 s/p bilateral ureteral stents 12/08/17 Plan Plan for dialysis thursday as TTS schedule. continue with nephrovite 1 tab/day not on RAAS chaitanya due to low BP. latest LVEF normal pt was on systemic a/c with oral coumadin due to hx of DVT last Hb 10.6 ordered WILBER with HD q wk outpt PTH and Phos under control ? consider chronic suppressive therapy for recurrent UTIs consider urology eval for persistent Rt side hydronephrosis despite stent ID following Dose meds/antibiotics for dialysis status. Avoid fleets enema/magnesium based laxatives. Avoid nephrotoxins/NSAIDs Glycemic control Further work up/management as per primary team. Thanks for allowing me to participate in care of your patient. Will follow patient with you. Please call if any Qs. had d/w team and mother Dr Phillip Dixon Office: [phone] CC: unable to obtain reason for consult; ESRD HPI: Pt is a 27 M with MR and chronic obstructive uropathy and progressive CKD as a result of obstruction, now ESRD on HD (TTS) @ [place] unit, CHF, DVT came with cloudy urine and found to have UTI renal consult for ESRD management hx provided by mother, pt now better had b/l nephrostomy tubes which were changed to indwelling catheter with b/l ureteral stents ROS: pt unable to provide due to MR. overnight events noted. per mother, pt is doing better, eating well Physical Examination: General Appearance: Comfortable, in no acute respiratory distress Vitals reviewed and noted as below Head; Atraumatic, normocephalic ENT: no ulcers no thrush. Tongue is midline. Oropharynx: no rash or ulcers. EYES: Pupils are equal, round and reactive to light accommodation. Eye muscles and extraocular movement intact. Sclera is anicteric. Neck; supple no lymphadenopathy, no thyromegaly or bruit Lungs: Normal respiratory rate/effort. Breath sounds bilateral equal and clear Heart: Normal rate. s1s2 normal. No rub or gallop. Extremities: no edema. No varicose veins Neurological: Patient is alert, awake, has severe MR, non communicative, non verbal Skin: Warm and dry. Normal turgor. No rash. Palpitation: Normal elasticity for age Abdomen: unable as pt not allowing Psych: no insight MSK: no joint tenderness or swelling. Digits and nails normal, no deformity : has smith access: permacath Labs/imaging reviewed. Past medical history, past surgical history, family history, social history, allergy reviewed and noted as below Family hx: no hx of CKD. Rest non-contributory Objective - Vital Signs/Intake and Output Vital Signs (last 24 hours): Temp Pulse Resp BP Pulse Ox 98.7 F 62 20 96/65 L 96 01/25/18 08:00 01/25/18 08:00 01/25/18 08:00 01/25/18 08:00 01/25/18 08:00 Intake and Output: 01/25/18 01/25/18 06:59 18:59 Intake Total 700 Output Total 1300 400 Balance -600 -400 - Medications Medications: Current Medications Epoetin Raza (Procrit) 4,000 unit IV QWK [facility] Famotidine (Pepcid) 20 mg PO DAILY [facility] Last Admin: 01/25/18 11:16 Dose: 20 mg Heparin Sodium (Porcine) (Heparin) 4,600 units IVP TTS [facility] Stop: 02/04/18 10:01 Last Admin: 01/23/18 15:22 Dose: 4,600 units Cefepime HCl 1 gm/ Dextrose 50 mls @ 100 mls/hr IVPB DAILY [facility] PRN Reason: Protocol Last Admin: 01/25/18 11:20 Dose: 100 mls/hr Vancomycin HCl 1 gm/ Sodium (Chloride) 250 mls @ 166.7 mls/hr IVPB TTS [facility] PRN Reason: Protocol Last Admin: 01/23/18 17:19 Dose: 166.7 mls/hr Vitamin B Complex/Vit C/Folic Acid (Nephro-Robel) 1 tab PO DAILY [facility] Last Admin: 01/25/18 11:16 Dose: 1 tab Warfarin Sodium (Coumadin) 4 mg PO 1800 [facility] Stop: 01/25/18 18:01 - Labs Labs: 01/25/18 07:15 01/25/18 07:15 PT 24.1 SECONDS (9.7-12.2) H 01/25/18 07:15 INR 2.2 01/25/18 07:15
[2018-01-25 15:51] LABS: HEPATITIS A IGM NEGATIVE (NEGATIVE); HEPATITIS B CORE AB NEGATIVE (NEGATIVE)
[2018-01-25 16:02] LABS: HEPATITIS C ANTIBODY NEGATIVE (NEGATIVE)
[2018-01-25 17:19] LABS: HEPATITIS B SURFACE AG Reactive (NEGATIVE)
--- NOTE | 2018-01-25 21:29 | CP.PCM.PN ---
Subjective - Date & Time of Evaluation Date of Evaluation: 01/25/18 Time of Evaluation: 16:00 - Subjective Subjective: dictated Objective - Vital Signs/Intake and Output Vital Signs (last 24 hours): Temp Pulse Resp BP Pulse Ox 97.7 F 69 20 96/58 L 98 01/25/18 15:00 01/25/18 15:00 01/25/18 15:00 01/25/18 15:00 01/25/18 15:00 Intake and Output: 01/25/18 01/26/18 18:59 06:59 Intake Total 500 Output Total 400 Balance 100 - Medications Medications: Current Medications Epoetin Raza (Procrit) 4,000 unit IV QWK [facility] Famotidine (Pepcid) 20 mg PO DAILY [facility] Last Admin: 01/25/18 11:16 Dose: 20 mg Heparin Sodium (Porcine) (Heparin) 4,600 units IVP [facility] Stop: 02/04/18 10:01 Last Admin: 01/23/18 15:22 Dose: 4,600 units Vancomycin HCl 1 gm/ Sodium (Chloride) 250 mls @ 166.7 mls/hr IVPB [facility]TS [facility] PRN Reason: Protocol Last Admin: 01/23/18 17:19 Dose: 166.7 mls/hr Vitamin B Complex/Vit C/Folic Acid (Nephro-Robel) 1 tab PO DAILY [facility] Last Admin: 01/25/18 11:16 Dose: 1 tab - Labs Labs: 01/25/18 07:15 01/25/18 07:15 PT 24.1 SECONDS (9.7-12.2) H 01/25/18 07:15 INR 2.2 01/25/18 07:15
--- NOTE | 2018-01-26 01:08 | PN ---
Copied To: Trey Tate MD Attending MD: Trey Tate MD DATE: 01/25/2018 INFECTIOUS DISEASE FOLLOWUP SUBJECTIVE: The patient is a Down syndrome patient. He remains confused in his own world. His mother was at the bedside; she thought he was improving. Of note that the resident brought to my note as was that his hepatitis B surface antigen was positive. This matter was later discussed with the renal attending who told me that the patient was negative before and received hepatitis B vaccine and since has developed antigen, so he is going to isolate him during the dialysis . I did try to let them as noted put him on contact precaution, but she says there is nothing else except for universal precautions for these patients, so we left it at that. The patient's mother was concerned. I discussed with her but it seems that I have to discuss it again with her tomorrow what happened, but the patient is fine. PHYSICAL EXAMINATION: GENERAL: He appears to be in no acute respiratory distress. VITAL SIGNS: T-max was 97.7, pulse 69, blood pressure 96/58, respirations are 20. HEENT: Head is atraumatic, normocephalic. He has Down syndrome features. NECK: Supple. LUNGS: Clear. HEART: S1, S2 are regular. ABDOMEN: Soft, nontender. No guarding, no rigidity present. EXTREMITIES: Have no edema. ASSESSMENT AND PLAN: His urine culture came out positive for Enterococcus faecalis. This is vancomycin sensitive, so we will give him vancomycin. He was on cefepime also which I have discontinued. He is a dialysis patient, so we will get vancomycin TTS which can be done on dialysis. We will see if that is , I would suggest to change his Nick catheter before in view of the Enterococcus. He had abdominal and pelvic CT done on 01/22/2018 which shows gross right hydronephrosis, moderate right hydroureter, [id number] left hydronephrosis, no left hydroureter. There is right hydronephrosis. Bilateral double-J ureteral stents in position with the left and well placed in left and terminating in the distal right ureter. Nick catheter decompressing urinary bladder noted. No secondary signs of pyelonephritis suggest perinephric reaction or pulmonary fluid collection appreciated. Lack of intravenous contrast limits interpretation, and further clinical correlation is advised. Then, he also had bladder ultrasound. He does have a right hydronephrosis. The bladder ultrasound shows urinary bladder completely decompressed by Nick catheter. Distal segments of bilateral double-J ureteral stents are not well identified due to collapse of the urinary bladder, so he does have double-J stents and need to be followed up with the urologist as when they need to be removed and when they need to be placed. Right now, he is on vancomycin since he has these catheters. Urology evaluation should be considered either inpatient or outpatient. We will leave him on this, but since there is left hydronephrosis, I would like to give at least five doses of vancomycin to cover for hydronephrosis. Trey Tate MD
[2018-01-26 08:40] LABS: EOS # 0.4 K/uL (0.0-0.7); EOS % 9.1 % (0.0-4.0); HEMOGLOBIN 10.6 g/dL (12.0-18.0); INR 1.9; LYMPH # 2.9 K/uL (1.0-4.3); LYMPH % 60.5 % (20.0-40.0); MEAN CELL VOLUME 92.6 fL (80.0-94.0); MEAN CORPUSCULAR HEMOGLOBIN 30.9 pg (27.0-31.0); MEAN CORPUSCULAR HGB CONC 33.4 g/dL (33.0-37.0); MEAN PLATELET VOLUME 7.9 fL (7.2-11.7); MONO # 0.7 K/uL (0.0-0.8); MONO % 15.2 % (0.0-10.0); NEUT # 0.7 K/uL (1.8-7.0); NEUT % 15.2 % (50.0-75.0); NRBC % 0.1 % (0.0-2.0); PROTHROMBIN TIME 20.8 SECONDS (9.7-12.2); RBC 3.45 Mil/uL (4.40-5.90); WHITE BLOOD COUNT 4.7 K/uL (4.8-10.8)
[2018-01-26 09:13] LABS: ALBUMIN 3.8 g/dL (3.5-5.0); CALCIUM 8.4 mg/dl (8.6-10.4)
[2018-01-26] MEDS: Multivitamin Vitamin B Complex (Nephro-Vite) Tab PO SCH (10:04)
--- NOTE | 2018-01-26 12:26 | CP.PCM.PN ---
Subjective - Date & Time of Evaluation Date of Evaluation: 01/26/18 Time of Evaluation: 12:22 - Subjective Subjective: Nephrology Consultation Note: Assessment: stable UTI ESRD on HD via permacath (TTS) hx of b/l massive hydronephrosis and loss of renal cortex s/p b/l nephrostomy now s/p ureteral stent and smith left femoral DVT. neg for HIT/hypercoag work up Anemia, hx of MR vit D def with secondary hyperparathyroidism chronic systolic CHF with LVEF 35% now LVEF normal on latest echo november 2017 s/p bilateral ureteral stents 12/08/17 Plan Plan for dialysis today as TTS schedule. continue with nephrovite 1 tab/day not on RAAS chaitanya due to low BP. latest LVEF normal pt was on systemic a/c with oral coumadin due to hx of DVT last Hb 10.6 ordered WILBER with HD q wk added renvela for phos ? consider chronic suppressive therapy for recurrent UTIs. ID following. discussed. consider urology eval for persistent Rt side hydronephrosis despite stent Pt was given Hep B vaccine 01/21/18 at dialysis unit. his Hep b antigen/ab status was negative just prior to that. current Hep B Ag positivity is due to recent vaccination and not due to active infection. sent Hep Be ag to confirm. his core ab is negative Dose meds/antibiotics for dialysis status. Avoid fleets enema/magnesium based laxatives. Avoid nephrotoxins/NSAIDs Glycemic control Further work up/management as per primary team. Thanks for allowing me to participate in care of your patient. Will follow patient with you. Please call if any Qs. had d/w team and mother Dr Phillip Dixon Office: [phone] CC: unable to obtain reason for consult; ESRD HPI: Pt is a 27 M with MR and chronic obstructive uropathy and progressive CKD as a result of obstruction, now ESRD on HD (TTS) @ [facility] unit, CHF, DVT came with cloudy urine and found to have UTI renal consult for ESRD management hx provided by mother, pt now better had b/l nephrostomy tubes which were changed to indwelling catheter with b/l ureteral stents ROS: pt unable to provide due to MR. overnight events noted. per mother, pt is doing better, eating well Physical Examination: seen on HD General Appearance: Comfortable, in no acute respiratory distress Vitals reviewed and noted as below Head; Atraumatic, normocephalic ENT: no ulcers no thrush. Tongue is midline. Oropharynx: no rash or ulcers. EYES: Pupils are equal, round and reactive to light accommodation. Eye muscles and extraocular movement intact. Sclera is anicteric. Neck; supple no lymphadenopathy, no thyromegaly or bruit Lungs: Normal respiratory rate/effort. Breath sounds bilateral equal and clear Heart: Normal rate. s1s2 normal. No rub or gallop. Extremities: no edema. No varicose veins Neurological: Patient is alert, awake, has severe MR, non communicative, non verbal Skin: Warm and dry. Normal turgor. No rash. Palpitation: Normal elasticity for age Abdomen: unable as pt not allowing Psych: no insight MSK: no joint tenderness or swelling. Digits and nails normal, no deformity : has smith access: permacath Labs/imaging reviewed. Past medical history, past surgical history, family history, social history, allergy reviewed and noted as below Family hx: no hx of CKD. Rest non-contributory Objective - Vital Signs/Intake and Output Vital Signs (last 24 hours): Temp Pulse Resp BP Pulse Ox 98.5 F 89 16 139/88 99 01/26/18 09:45 01/26/18 09:45 01/26/18 09:45 01/26/18 10:45 01/26/18 09:45 Intake and Output: 01/26/18 01/26/18 06:59 18:59 Intake Total 300 Output Total 300 Balance 0 - Medications Medications: Current Medications Epoetin Raza (Procrit) 4,000 unit IV QWK [facility] Famotidine (Pepcid) 20 mg PO DAILY [facility] Last Admin: 01/26/18 10:05 Dose: Not Given Heparin Sodium (Porcine) (Heparin) 4,600 units IVP TTS [facility] Stop: 02/06/18 10:01 Last Admin: 01/26/18 11:14 Dose: 4,600 units Vancomycin HCl 1 gm/ Sodium (Chloride) 250 mls @ 166.7 mls/hr IVPB TTS [facility] PRN Reason: Protocol Last Admin: 01/23/18 17:19 Dose: 166.7 mls/hr Sevelamer Carbonate (Renvela) 800 mg PO TIDCC [facility] Vitamin B Complex/Vit C/Folic Acid (Nephro-Robel) 1 tab PO DAILY [facility] Last Admin: 01/26/18 10:04 Dose: Not Given - Labs Labs: 01/26/18 08:28 01/26/18 08:28 PT 20.8 SECONDS (9.7-12.2) H 01/26/18 08:28 INR 1.9 01/26/18 08:28
--- NOTE | 2018-01-26 12:59 | CP.PCM.PN ---
Subjective - Date & Time of Evaluation Date of Evaluation: 01/26/18 Time of Evaluation: 12:30 - Subjective Subjective: dictated Objective - Vital Signs/Intake and Output Vital Signs (last 24 hours): Temp Pulse Resp BP Pulse Ox 98.5 F 89 16 98/59 L 99 01/26/18 09:45 01/26/18 09:45 01/26/18 09:45 01/26/18 12:45 01/26/18 09:45 Intake and Output: 01/26/18 01/26/18 06:59 18:59 Intake Total 300 Output Total 300 Balance 0 - Medications Medications: Current Medications Epoetin Raza (Procrit) 4,000 unit IV QWK [facility] Famotidine (Pepcid) 20 mg PO DAILY [facility] Last Admin: 01/26/18 10:05 Dose: Not Given Heparin Sodium (Porcine) (Heparin) 4,600 units IVP TTS [facility] Stop: 02/06/18 10:01 Last Admin: 01/26/18 11:14 Dose: 4,600 units Vancomycin HCl 1 gm/ Sodium (Chloride) 250 mls @ 166.7 mls/hr IVPB TTS [facility] PRN Reason: Protocol Last Admin: 01/23/18 17:19 Dose: 166.7 mls/hr Sevelamer Carbonate (Renvela) 800 mg PO TIDCC [facility] Vitamin B Complex/Vit C/Folic Acid (Nephro-Robel) 1 tab PO DAILY [facility] Last Admin: 01/26/18 10:04 Dose: Not Given - Labs Labs: 01/26/18 08:28 01/26/18 08:28 PT 20.8 SECONDS (9.7-12.2) H 01/26/18 08:28 INR 1.9 01/26/18 08:28
--- NOTE | 2018-01-26 16:04 | CP.PCM.DIS ---
Provider - Provider Date of Admission: 01/22/18 20:31 Attending physician: George Cutler Jr, MD Time Spent in preparation of Discharge (in minutes): 60 Hospital Course - Lab Results Lab Results: Micro Results 01/22/18 18:40 Blood Blood Culture - Preliminary NO GROWTH AFTER 3 DAYS 01/22/18 19:00 Blood Blood Culture - Preliminary NO GROWTH AFTER 3 DAYS 01/22/18 18:44 Urine Urine Culture - Final Enterococcus Faecalis Most Recent Lab Values WBC 4.7 K/uL (4.8-10.8) L 01/26/18 08:28 RBC 3.45 Mil/uL (4.40-5.90) L 01/26/18 08:28 Hgb 10.6 g/dL (12.0-18.0) L 01/26/18 08:28 Hct 31.9 % (35.0-51.0) L 01/26/18 08:28 MCV 92.6 fL (80.0-94.0) 01/26/18 08: MCH 30.9 pg (27.0-31.0) 01/26/18 08:28 MCHC 33.4 g/dL (33.0-37.0) 01/26/18 08:28 RDW 17.0 % (11.5-14.5) H 01/26/18 08:28 Plt Count 223 K/uL (130-400) 01/26/18 08:28 MPV 7.9 fL (7.2-11.7) 01/26/18 08:28 Neut % (Auto) 15.2 % (50.0-75.0) L 01/26/18 08:28 Lymph % (Auto) 60.5 % (20.0-40.0) H 01/26/18 08:28 Mcdonough % (Auto) 15.2 % (0.0-10.0) H 01/26/18 08:28 Eos % (Auto) 9.1 % (0.0-4.0) H 01/26/18 08:28 Baso % (Auto) 0.0 % (0.0-2.0) 01/26/18 08:28 Neut # (Auto) 0.7 K/uL (1.8-7.0) L 01/26/18 08:28 Lymph # (Auto) 2.9 K/uL (1.0-4.3) 01/26/18 08:28 Mcdonough # (Auto) 0.7 K/uL (0.0-0.8) 01/26/18 08:28 Eos # (Auto) 0.4 K/uL (0.0-0.7) 01/26/18 08:28 Baso # (Auto) 0.0 K/uL (0.0-0.2) 01/26/18 08:28 PT 20.8 SECONDS (9.7-12.2) H 01/26/18 08:28 INR 1.9 01/26/18 08:28 Sodium 142 mmol/L (132-148) 01/26/18 08:28 Potassium 4.4 mmol/L (3.6-5.2) 01/26/18 08:28 Chloride 106 mmol/L (98-107) 01/26/18 08:28 Carbon Dioxide 22 mmol/L (22-30) 01/26/18 08:28 Anion Gap 19 (10-20) 01/26/18 08:28 BUN 61 mg/dL (9-20) H 01/26/18 08:28 Creatinine 7.4 mg/dL (0.8-1.5) H* 01/26/18 08:28 Est GFR ( Amer) 11 01/26/18 08:28 Est GFR (Non-Af Amer) 9 01/26/18 08:28 Random Glucose 87 mg/dL (75-110) 01/26/18 08:28 Calcium 8.4 mg/dl (8.6-10.4) L 01/26/18 08:28 Phosphorus 6.2 mg/dL (2.5-4.5) H 01/26/18 08:28 Magnesium 1.8 mg/dL (1.6-2.3) 01/26/18 08:28 Total Bilirubin 0.2 mg/dL (0.2-1.3) 01/26/18 08:28 AST 29 U/L (17-59) 01/26/18 08:28 ALT 64 U/L (21-72) 01/26/18 08:28 Alkaline Phosphatase 66 U/L (38-126) 01/26/18 08:28 Total Protein 7.6 g/dL (6.3-8.3) 01/26/18 08:28 Albumin 3.8 g/dL (3.5-5.0) 01/26/18 08: Globulin 3.8 gm/dL (2.2-3.9) 01/26/18 08: Albumin/Globulin Ratio 1.0 (1.0-2.1) 01/26/18 08: Lipase 79 U/L (23-300) 01/22/18 18:44 Urine Color Yellow (YELLOW) 01/22/18 18:44 Urine Clarity Turbid (Clear) 01/22/18 18:44 Urine pH 6.0 (5.0-8.0) 01/22/18 18:44 Ur Specific [place] 1.010 (1.003-1.030) 01/22/18 18:44 Urine Protein 2+ mg/dL (NEGATIVE) H 01/22/18 18:44 Urine Glucose (UA) Normal mg/dL (Normal) 01/22/18 18:44 Urine Ketones Negative mg/dL (NEGATIVE) 01/22/18 18:44 Urine Blood 3+ (NEGATIVE) H 01/22/18 18:44 Urine Nitrate Negative (NEGATIVE) 01/22/18 18:44 Urine Bilirubin Negative (NEGATIVE) 01/22/18 18:44 Urine Urobilinogen Normal mg/dL (0.2-1.0) 01/22/18 18:44 Ur Leukocyte Esterase 3+ Anam/uL (Negative) H 01/22/18 18:44 Urine WBC (Auto) 1181 /hpf (0-5) H 01/22/18 18:44 Urine RBC (Auto) 181 /hpf (0-3) H 01/22/18 18:44 Urine WBC Clumps (Auto) Many /hpf (NONE) H 01/22/18 18:44 Urine Bacteria Mod (<OCC) H 01/22/18 18:44 Random Vancomycin 10.1 ug/mL 01/26/18 10:53 Hepatitis A IgM Ab Negative (NEGATIVE) 01/25/18 14:54 Hep Bs Antigen Reactive (NEGATIVE) 01/25/18 14:54 Hep Bs Ag Neutralizatn Confirmed positive H 01/25/18 14:54 Hep Bs Antibody Negative (NEGATIVE) 01/25/18 14:54 Hep B Core IgM Ab Negative (NEGATIVE) 01/25/18 14:54 Hepatitis C Antibody Negative (NEGATIVE) 01/25/18 14:54 - Hospital Course Hospital Course: Vince Pierce is a 27 yo male with a history of Down syndrome and CKD who presents with cloudy urine. The patient has ESRD and receives HD 3x/week and always has a Smith catheter. The patient has frequent UTIs. He was recently admitted from 01/08-01/20 for UTI with Klebsiella and Pseudomonas. He was treated with IV gentamicin and discharged on Linezolid. Patient took his last dose of Linezolid yesterday. Mother reports that patient had blood in his urine prior to that admission but now it is just cloudy. She states the patient is not acting differently than his baseline. She denies fevers. She does not believe he has any pain. Additionally, she states he has been scratching around his penis for the last few days and reports he was given some oral and topical medication for yeast infection. ID recommended Cefepime daily and Vancomycin with HD TTS. CT A/P w/o contrast showed severe b/l (R>L) hydronephrosis, NO pyelonephritis and bladder, and US confirmed findings. Urine culture sensitive to Vancomycin. As per nephrology, TTS HD schedule continued. Mother reports patient is looking back to baseline and acting accordingly. Incidentily, HBV surface Ag positive but AST and ALT downtrending. However, patient had just received HepB vaccine during dialysis on the , and per ID, this Ag reaction is natural. Smith catheter in place for obstructive uropathy with translucent yellow urine. Will stay in-dwelling. Due to history of DVT patients home dose of Coumadin continued, and therefore was not discharged with prophylatic ampicillin, per ID. Primary Diagnosis: UTI Patient is stable for discharge per Dr. Cutler. Continue home meds as you were. Please take the new medication as prescribed: Vancomycin 1gm with dialysis TTS If symptoms return or worsen, please come back to the ED. Please follow up with Dr. Dixon or other circular tank cooper for dialysis treatment (Please do NOT miss dialysis treatments). [facility] is expecting you on . Follow up with Dr. Tate for UTI and Hep B Ag positivity. Please be well. This is a summary of the hospital course. Please refer to EMR for more details. - Date & Time of H&P Date of H&P: 01/26/18 Time of H&P: 16:30 Discharge Exam - Head Exam Head Exam: ATRAUMATIC, NORMOCEPHALIC - Eye Exam Eye Exam: EOMI, Normal appearance Additional comments: slitted eyes - ENT Exam ENT Exam: Mucous Membranes Moist, Normal Exam - Respiratory Exam Respiratory Exam: Clear to PA & Lateral, NORMAL BREATHING PATTERN. absent: Rales, Rhonchi, Wheezes - Cardiovascular Exam Cardiovascular Exam: REGULAR RHYTHM, +S1, +S2. absent: Systolic Murmur - GI/Abdominal Exam GI & Abdominal Exam: Normal Bowel Sounds, Soft. absent: Distended, Firm, Guarding, Rebound, Rigid, Tenderness - Exam Additional comments: indwelling smith cath, no suprapubic tenderness R permacath in place - Extremities Exam Extremities exam: full ROM Additional comments: radial pulses intact - Back Exam Back exam: absent: CVA tenderness (L), CVA tenderness (R) - Neurological Exam Neurological exam: Alert Additional comments: sever MR, non communicative - Psychiatric Exam Psychiatric exam: Normal Affect, Normal Mood - Skin Skin Exam: Dry, Intact, Normal Color, Warm Discharge Plan - Discharge Medications Prescriptions: Vancomycin [Vancomycin Inj] 1 gm IVPB TTS #5 vial - Follow Up Plan Condition: STABLE Disposition: HOME/ ROUTINE Instructions: Dialysis and Diet, Urinary Tract Infection in Men (DC), Urinary Tract Infection in Women (DC), Dysuria (GEN) Additional Instructions: Patient is stable for discharge per Dr. Cutler. Continue home meds as you were. Please take the new medication as prescribed: Vancomycin 1gm with dialysis TTS If symptoms return or worsen, please come back to the ED. Please follow up with Dr. Dixon or other circular tank cooper for dialysis treatment (Please do NOT miss dialysis treatments). [facility] is expecting you on . Follow up with Dr. Tate for UTI and Hep B Ag positivity. Please be well. Referrals: Phillip Dixon MD [Staff Provider] - George Cutler Jr., MD [Medical Doctor] - Trey Tate MD [Staff Provider] -
[2018-01-26 16:32] VITALS: BP 112/74; PULSE 79; RESP 20; TEMP 98.8; O2SAT 98
--- NOTE | 2018-01-26 18:32 | PN ---
Copied To: Trey Tate MD Attending MD: Trey Tate MD DATE: 01/26/2018 SUBJECTIVE: The patient was seen today. He was getting dialysis and the patient was discussed with the mother about the hepatitis B issue and the dialysis center will be following that. Dr. Dixon is aware of it. PHYSICAL EXAMINATION: VITAL SIGNS: T-max is 98.5, pulse is 140, blood pressure is 148/92, respirations are 16, and pulse is 89. HEENT: Head is atraumatic. He has Down syndrome. NECK: Supple. LUNGS: Clear. HEART: S1 and S2 regular. ABDOMEN: Soft and nontender. No guarding and no rigidity present. EXTREMITIES: Have no edema. ASSESSMENT AND PLAN: He has constant Nick and it is suggested to change the Nick catheter before sending him out and his urine only showed it was Enterococcus, which is vancomycin sensitive. So, he will be getting vancomycin on dialysis and they can give it for five more times on dialysis and so he probably can go home. I wanted to give him a chronic prophylaxis, but he is on warfarin according to the mom and with other antibiotics. He should change the Nick catheter if it has not changed recently. Trey Tate MD
[2018-01-28] MEDS ORDERED: EPOETIN ALFA 4,000 UNIT/ML ML Dialysis IV SCH (10:00)
== END 2018-01-26 18:38 | disposition home or self-care (01) | DRG 689 ==
LOC: C.ER 17:40 → C.9E 20:31 → C.3T 22:01
PROVIDERS: ATTEND Internal Medicine
PROC: 5A1D70Z Performance of Urinary Filtration, Intermittent, Less than 6 Hours Per Day (ICD-10-PCS; principal; 2018-01-22)
PROC: 5A1D70Z Performance of Urinary Filtration, Intermittent, Less than 6 Hours Per Day (ICD-10-PCS; 2018-01-26)
DX: N39.0 Urinary tract infection, site not specified (principal); N18.6 End stage renal disease; B37.49 Other urogenital candidiasis; N25.81 Secondary hyperparathyroidism of renal origin; I50.22 Chronic systolic (congestive) heart failure; I13.2 Hypertensive heart and chronic kidney disease with heart failure and with stage 5 chronic kidney disease, or end stage renal disease; B95.2 Enterococcus as the cause of diseases classified elsewhere; B96.89 Other specified bacterial agents as the cause of diseases classified elsewhere; D64.9 Anemia, unspecified; E55.9 Vitamin D deficiency, unspecified; F84.0 Autistic disorder; Q90.9 Down syndrome, unspecified; Z99.2 Dependence on renal dialysis; Z87.440 Personal history of urinary (tract) infections; Z86.718 Personal history of other venous thrombosis and embolism

== ENCOUNTER 2018-03-24 06:02 | Day surgery (SDC) | payer OTHER ==
[2018-02-17 22:58] VITALS: BMI 21.1
[2018-03-24 07:10] LABS: CALCIUM 8.3 mg/dl (8.6-10.4)
[2018-03-24 07:17] LABS: INR 2.9; PROTHROMBIN TIME 31.7 SECONDS (9.7-12.2)
[2018-03-24] MEDS ORDERED: Lidocaine 2% Jelly (Uro-Jet) ONE (07:18)
[2018-03-24] MEDS ORDERED: Iohexol 240 (50 ml) ONE (07:18)
[2018-03-24] MEDS ORDERED: cefTRIAXone 1 gm 1 GM/100 ML BAG IVPB ONE (07:18)
[2018-03-24] MEDS ORDERED: Propofol 10 mg/ml Inj (20 ML) ONE (08:31)
[2018-03-24] MEDS ORDERED: Succinylcholine Chloride 20 mg/ml Syr (5 ml) IV ONE (08:31)
[2018-03-24] MEDS ORDERED: Midazolam 2 MG/2 ML VIAL ONE (08:31)
[2018-03-24] MEDS ORDERED: Phenylephrine 10 mg/ml Inj ONE (08:31)
[2018-03-24] MEDS ORDERED: Atropine 0.4 mg/ml Inj (1 mL) ONE (08:35)
[2018-03-24 11:04] VITALS: RESP 20
[2018-03-24 11:29] VITALS: BP 91/50; PULSE 85; TEMP 97.9; O2SAT 96
--- NOTE | 2018-03-24 13:35 | RAD ---
Date of service: 03/24/2018 PROCEDURE: Intraoperative Fluoroscopy. HISTORY: BILAT HYDRONEPHROSIS FINDINGS: Fluoroscopic assistance was provided for left stent placement. Please refer to the operative report from DES Infante DR, MD. Total fluoroscopic time (continuous mode) utilized during the procedure 12.5 (seconds). Dose report: DLP 0.0618 5 (mGy/m2)
--- NOTE | 2018-03-24 16:26 | RAD ---
Date of service: 03/24/2018 HISTORY: BILAT HYDRONEPHROSIS COMPARISON: None available. FINDINGS: BOWEL: Nonobstructive bowel gas pattern appreciated. No definite suspicious intra-abdominal calcifications including those that might abut the bilateral double-J ureteral stents, reiterated in position. BONES: Normal. OTHER FINDINGS: None. IMPRESSION: Nonobstructive bowel gas pattern appreciated. Bilateral double-J ureteral stents, reiterated placed as discussed above. No abnormal intra-abdominal calcifications appreciable.
--- NOTE | 2018-04-21 05:45 | OP ---
PROCEDURE DATE: 03/24/2018 PREOPERATIVE DIAGNOSES: Bilateral hydronephrosis, renal failure, urinary retention, voiding dysfunction, hematuria. POSTOPERATIVE DIAGNOSIS: Bilateral hydronephrosis, renal failure, urinary retention, voiding dysfunction, hematuria. PROCEDURE: Cystoscopy, removal of a Nick catheter, removal of left double J-stent, left retrograde pyelogram, insertion of left double J stent, a right retrograde pyelogram, insertion of a right double J stent. SURGEON: Norm Hoover MD ESTIMATED BLOOD LOSS: Less than 10 mL. COMPLICATIONS: There were no complications. INDICATIONS: See history and physical for further details. He has a very pleasant family. The patient has mental retardation. He is here now for the above procedure. FINDINGS: 1. Normal anterior urethra. 2. No strictures. The verumontanum is minimally visually occlusive. 3. The bladder mucosa is relatively normal. 4. Bilateral gigantic kidneys. 5. Bilateral hydronephrosis. No obvious The stents obtained without complication. DESCRIPTION OF PROCEDURE: After obtaining informed consent, the patient was placed on table. Antibiotic prophylaxis was used. Time-out was called to confirm the patient and positioning. We introduced cystoscope via urethra. The old Nick catheter was removed by urethra. Old stent was removed, the wire was passed up to the kidney, open ended over the wire, injected contrast through the outline of the kidney, put a wire back in, put a double J stent, then we did the same thing on the left and right side. We inserted a Nick catheter via urethra. The patient tolerated the procedure without complication. Norm Hoover MD
--- NOTE | 2018-04-21 07:55 | HP ---
UROLOGY NOTE INITIAL HISTORY AND PHYSICAL DATE: 03/24/2018 REASON FOR ADMISSION: Changing his ureteral stent. HISTORY OF PRESENT ILLNESS: Mr. Pierce is a very pleasant gentleman. He has mental retardation. His mother takes care of him completely. He has bilateral hydronephrosis. kidneys. He has renal failure. He is a dialysis patient but when we tried taking up the stent, he ran into infection. He also lives with a Nick catheter. This we have been able to now change in the office, but the stent of course, we cannot, and we are bringing him in today. We change his stents every three months. PAST MEDICAL AND SURGICAL HISTORY: As listed on the chart but unremarkable from the urology standpoint. Exact etiology for his retention and hydronephrosis is little bit somewhat unclear, but this has been now stable, and we have been changing it on a regular basis. Since he has been doing it on a regular basis, he is not ____ any episodes of sepsis why he is here today. REVIEW OF SYSTEMS: As listed above, noncontributory. Socially, as mentioned, his mother take care of him completely. He is very pleasant of his care. MEDICATIONS: See the chart. ALLERGIES: SEE THE CHART. PHYSICAL EXAMINATION: GENERAL: Well nourished male, in no apparent distress. He has a Nick cath. LUNGS: Clear. HEART: Normal S1 and S2. ABDOMEN: Overall soft. Nontender. No flank masses appreciated. GENITALIA: He has normal phallus. He is . Well-developed, well-nourished, normal appearing male genitalia. RECTAL: Unremarkable. DIAGNOSES: 1. Urinary retention. 2. Voiding dysfunction. 3. Bilateral hydronephrosis. 4. Renal failure, dialysis. 5. Hematuria. He does produce urine, and therefore we have been maintaining the patient with the Nick catheter, and we have been changing the stents every couple of months. PLAN: Plan for today is as follows. We are going to bring the patient to the operating room. We are going to provide antibiotic prophylaxis, and we are going to remove his stent and insert a new one. Further plans, we will follow. At this point, we are going to discuss with the mother at length. She seems to be the one in charge of all his care. Norm Hoover MD
== END 2018-03-24 11:00 | disposition home or self-care (01) ==
LOC: C.SDS 06:02
PROVIDERS: ATTEND Urology
DX: N13.30 Unspecified hydronephrosis (principal); N19 Unspecified kidney failure; R31.9 Hematuria, unspecified
CPT/HCPCS: 36415; 52005; 52332; 74018; 80048; 85610; 85730; C1725; C1758; C1769; J0461; J0696; J2250; J2370; J2704; J3010; Q9966

== ENCOUNTER 2018-04-26 09:07 | Inpatient (IN) | payer OTHER ==
[2018-02-17 22:58] VITALS: BMI 21.1
[2018-04-26 10:32] LABS: INR 1.2
[2018-04-26 10:37] LABS: CALCIUM 8.5 mg/dl (8.6-10.4)
[2018-04-26] MEDS ORDERED: HEPARIN-NS 5,000 UNITS/500 ML 5,000 UNIT/500 ML BAG IV ONE (12:04)
[2018-04-26] MEDS ORDERED: Lidocaine Hydrochloride 10 ML INJ ONE (12:04)
[2018-04-26] MEDS ORDERED: ceFAZolin 1 gm FROZEN Premix 1 GM/50 ML ML IVPB ONE (12:04)
[2018-04-26] MEDS ORDERED: Propofol 10 mg/ml Inj (20 ML) ONE ×2 (12:43→19:01)
[2018-04-26] MEDS ORDERED: Bupivacaine 0.25% 20 ML INJ IJ ONE (13:16)
[2018-04-26] MEDS ORDERED: ePHEDrine 50 mg/ml Inj ONE (13:42)
[2018-04-26] MEDS: Papaverine Hydrochloride 30 mg/ml (2ml) ONE ×2 (15:00→18:46)
[2018-04-26] MEDS ORDERED: Iodixanol 320 MG/ML 200 ML BOTTLE IV ONE (15:01)
[2018-04-26] MEDS ORDERED: Protamine 50mg/5mL Inj IV ONE ×2 (15:57→18:20)
[2018-04-26] MEDS ORDERED: ceFAZolin IV 1 gm in Dextrose 1 GM/50 ML BAG IVPB ONE (18:27)
[2018-04-26 18:53] LABS: BASO # 0.1 K/uL (0.0-0.2); BASO % 1.2 % (0.0-2.0); EOS # 0.2 K/uL (0.0-0.7); EOS % 1.9 % (0.0-4.0); LYMPH # 3.1 K/uL (1.0-4.3); LYMPH % 29.3 % (20.0-40.0); MEAN CELL VOLUME 90.4 fL (80.0-94.0); MEAN CORPUSCULAR HEMOGLOBIN 30.1 pg (27.0-31.0); MEAN CORPUSCULAR HGB CONC 33.3 g/dL (33.0-37.0); MEAN PLATELET VOLUME 7.7 fL (7.2-11.7); MONO % 9.2 % (0.0-10.0); NEUT # 6.2 K/uL (1.8-7.0); NEUT % 58.4 % (50.0-75.0); RBC 3.12 Mil/uL (4.40-5.90); RED CELL DISTRIBUTION WIDTH 19.6 % (11.5-14.5)
[2018-04-26 18:56] LABS: HEMOGLOBIN 9.4 g/dL (12.0-18.0); WHITE BLOOD COUNT 10.7 K/uL (4.8-10.8)
[2018-04-26] MEDS ORDERED: HYDROmorphone 0.5 mg/0.5 ml ISec IVP PRN (19:15)
[2018-04-26] MEDS ORDERED: Acetaminophen-Codeine 300/30 mg Tab PO PRN (19:23)
[2018-04-26 20:28] LABS: CALCIUM 7.5 mg/dl (8.6-10.4)
--- NOTE | 2018-04-27 06:38 | OP ---
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 PROCEDURE: Left wrist Asa fistula with enarterectomy SURGEON: Aleks Del Rio MD. ANESTHESIA: General. BLOOD LOSS: 20 mL. POSTOP CONDITION: Stable. INDICATIONS FOR SURGERY: This is a 27-year-old male, history of Down's syndrome, obstructive uropathy, now has endstage renal disease. He has good peripheral veins in his left arm and will undergo a Asa fistula in the left wrist. GROSS FINDINGS: The radial artery despite good pulse being present, preoperatively the radial artery was small slightly diseased and contracted consistent with spasm when finally dissected free. This persisted throughout the case, and he was intermittently treated with both dilatation instruments and papaverine. The inflow issues persisted throughout the case and the case took approximately 6 hours with the initial anastomosis being done and not very good inflow into the fistula being noted, and after an angio was performed, the fistula was opened up and the artery had to be dilated at this point. After the fistula was initially closed when the arteriotomy was then closed in the hooded graft, there initially was good flow into the graft but then it was lost, it had to be opened up again. During this revision, it was felt it was best to do a new anastomosis so the revision was completely taken down and transected. A new anastomosis was performed. Once again, we ran into problems with inflow. There were no mechanical errors noted; however, the spasm of the artery continued problems with the inflow. Once again after the second revision and opening of the graft, there finally was a decent inflow into the graft at which point the procedure was terminated. DESCRIPTION OF PROCEDURE: The patient was taken to the operating room, general anesthesia was administered. The left forearm, wrist, and hand were prepped and draped. A transverse incision was made over the cephalic vein and radial artery in the wrist. Cephalic vein was dissected free as was the radial artery. Two distal branches of the radial artery were looped and the proximal radial artery was also looped with a vessiloop. The vein was then transected distally, flushed with heparinized saline, prepared for anastomosis proximally, heparin was administered. the radial artery was opened longitudinally and a modified enarterectomy was perfored on atherosclerotic debris. The arteriovenous anastomosis was accomplished with 6-0 Prolene. At the conclusion, there was poor flow into the graft. This was noted by ultrasound. Arteriogram was noted to be patent which revealed that the graft to be patent, however, there was not very good proximal flow of the dye material. The hooded graft was open and the dilator was placed to the radial artery proximally. There was noted to be a stenosis at the pre point of occlusions from the . The hooded graft was closed, and there was some bleeding in this area. Some more stitches were placed and a decision was made, and once it was closed, there once again was no blood flow into the fistula. At this point, it was felt the new anastomosis had to be done with a widened arteriotomy. So anastomosis was transected with Car scissors. The vein was further mobilized proximally and the arteriotomy was widened proximally and distally and is flushed with heparinized saline, as was the vein. A small bulldog clamp was placed on the radial artery. The distal branches were occluded and new arterial and venous anastomosis accomplished in a similar fashion using double arm 6-0 Prolene suture. There was good flow and thrill into the graft upon removal of the clamps. Upon removal of the clamps, the incision was closed in layers with Monocryl and subcuticular Monocryl. Once this was done and we checked the cephalic vein for flow, there was no flow in the cephalic vein. The wound was reopened. There was found to be no flow in the graft. Once again the tiwari was open, dilated, so placed them once again. There was a problem proximally with the radial artery which once it was dilated, there was good blood flow into the anastomosis. This was closed. The hooded graft was closed and once again there were couple of issues, but basically we are able to fix them and there was a nice thrill in the graft at the conclusion of the procedure. To facilitate tension free closure, full thickness flaps were raised in the wrist proximally and distally. Counter incision were made and a 24 sq cm advancement flap closures were performed using multiple layers of Monocryl, subcuticular Monocryl, and glue. The patient tolerated the procedure well. Returned to recovery room in stable condition. Aleks Del Rio MD [facility]
[2018-04-27 06:49] LABS: BASO # 0.1 K/uL (0.0-0.2); BASO % 0.8 % (0.0-2.0); EOS # 0.1 K/uL (0.0-0.7); EOS % 0.9 % (0.0-4.0); LYMPH # 1.2 K/uL (1.0-4.3); LYMPH % 16.9 % (20.0-40.0); MEAN CELL VOLUME 89.9 fL (80.0-94.0); MEAN CORPUSCULAR HEMOGLOBIN 30.2 pg (27.0-31.0); MEAN CORPUSCULAR HGB CONC 33.6 g/dL (33.0-37.0); MEAN PLATELET VOLUME 7.7 fL (7.2-11.7); MONO # 0.6 K/uL (0.0-0.8); MONO % 8.5 % (0.0-10.0); NEUT # 5.3 K/uL (1.8-7.0); NEUT % 72.9 % (50.0-75.0); RBC 2.66 Mil/uL (4.40-5.90); RED CELL DISTRIBUTION WIDTH 19.8 % (11.5-14.5); WHITE BLOOD COUNT 7.3 K/uL (4.8-10.8)
[2018-04-27] MEDS ORDERED: EPOETIN ALFA 4,000 UNIT/ML ML Dialysis IV SCH (10:00)
[2018-04-27] MEDS: Multivitamin Vitamin B Complex (Nephro-Vite) Tab PO SCH (10:26)
[2018-04-27] MEDS: Dextrose 5%/0.45% NS 1,000 ML IV SCH (13:12)
--- NOTE | 2018-04-27 14:50 | RAD ---
Date of service: 04/26/2018 PROCEDURE: Fluoroscopy up to 1 hr. HISTORY: AV FISTULA COMPARISON: None TECHNIQUE: Standard protocol for this study/examination. FINDINGS: Total fluoroscopic time (continuous mode) utilized during the procedure 55.5 seconds. Total exam DLP: 1.46 (mGy). IMPRESSION: Less than 1 hr fluoroscopic assistance provided during performance of the procedure.
--- NOTE | 2018-04-27 15:35 | CP.PCM.CON ---
History of Present Illness - History of Present Illness History of Present Illness: Nephrology Consultation Note: Assessment: stable ESRD on HD via permacath (TTS) hx of b/l massive hydronephrosis and loss of renal cortex s/p b/l nephrostomy now s/p ureteral stent and smith left femoral DVT. neg for HIT/hypercoag work up Anemia, hx of MR vit D def with secondary hyperparathyroidism chronic systolic CHF with LVEF 35% now LVEF normal on latest echo november 2017 s/p bilateral ureteral stents 12/08/17 Transient Hep B antigenemia due to Hep B Vaccination Plan Plan for dialysis as TTS schedule. continue with nephrovite 1 tab/day not on RAAS chaitanya due to low BP. latest LVEF normal. COREG MWF DAYS DOSE ORDERED pt was on systemic a/c with oral coumadin due to hx of DVT last Hb 8 hence ordered WILBER with HD continue with phos binders vascular surgery following Dose meds/antibiotics for dialysis status. Avoid fleets enema/magnesium based laxatives. Avoid nephrotoxins/NSAIDs Glycemic control Further work up/management as per primary team. Thanks for allowing me to participate in care of your patient. Will follow patient with you. Please call if any Qs. had d/w team and mother Dr Phillip Dixon Office: [phone] CC: unable to obtain reason for consult; ESRD HPI: Pt is a 27 M with MR and chronic obstructive uropathy and progressive CKD as a result of obstruction, now ESRD on HD (TTS) @ [place] unit, CHF, DVT has left side AVF procedure done and seen today. renal consult for ESRD management hx provided by mother, pt stable. no new complaints had b/l nephrostomy tubes which were changed to indwelling catheter with b/l ureteral stents ROS: pt unable to provide due to MR. overnight events noted Physical Examination: General Appearance: Comfortable, in no acute respiratory distress Vitals reviewed and noted as below Head; Atraumatic, normocephalic ENT: no ulcers no thrush. Tongue is midline. Oropharynx: no rash or ulcers. EYES: Pupils are equal, round and reactive to light accommodation. Eye muscles and extraocular movement intact. Sclera is anicteric. Neck; supple no lymphadenopathy, no thyromegaly or bruit Lungs: Normal respiratory rate/effort. Breath sounds bilateral equal and clear Heart: Normal rate. s1s2 normal. No rub or gallop. Extremities: no edema. No varicose veins Neurological: Patient is alert, awake, has severe MR, non communicative, non verbal Skin: Warm and dry. Normal turgor. No rash. Palpitation: Normal elasticity for age Abdomen: unable as pt not allowing Psych: no insight MSK: no joint tenderness or swelling. Digits and nails normal, no deformity : has smith access: permacath. s/p left radial AVF Labs/imaging reviewed. Past medical history, past surgical history, family history, social history, allergy reviewed and noted as below Family hx: no hx of CKD. Rest non-contributory Past Patient History - Infectious Disease Hx of Infectious Diseases: None - Tetanus Immunizations Tetanus Immunization: Unknown - Past Medical History & Family History Past Medical History?: Yes - Past Social History Smoking Status: Never Smoked - CARDIAC Hx Cardiac Disorders: Yes Hx Cardia Arrhythmia: Yes Hx Hypertension: Yes Other/Comment: Hypotension. DVT - PULMONARY Hx Respiratory Disorders: No - NEUROLOGICAL Hx 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) Other/Comment: AUTISTIC, DOWN SYNDROME, NON-VERBAL - RENAL Date of Last Dialysis Treatment: 04/24/18 - ENDOCRINE/METABOLIC Hx Endocrine Disorders: No - INTEGUMENTARY Hx Dermatological Problems: Yes Hx Eczema: Yes - MUSCULOSKELETAL/RHEUMATOLOGICAL Hx Falls: No - GASTROINTESTINAL Hx Gastrointestinal Disorders: Yes Hx Gastritis: Yes - GENITOURINARY/GYNECOLOGICAL Hx Genitourinary Disorders: Yes Hx Hematuria: Yes Hx Urinary Tract Infection: Yes Other/Comment: SMITH since jun 2017. last changed Jan 01, 2018 - PSYCHIATRIC Hx Substance Use: No - SURGICAL HISTORY Hx Surgeries: Yes Hx Vascular Access Device: Yes Other/Comment: CYSTOSCOPY. NEPHROSTOMY TUBES, ROWDY.- removed. kidney stent ? Dialysis cath, upper anterior chest, right - ANESTHESIA Hx Anesthesia: Yes Hx Anesthesia Reactions: No Hx Malignant Hyperthermia: No Has any member of the family had a problem w/ anesthesia?: (UNKNOWN) Meds Allergies/Adverse Reactions: Allergies Allergy/AdvReac Type Severity Reaction Status Date / Time No Known Allergies Allergy Verified 04/02/18 11:54 - Medications Medications: Current Medications Acetaminophen/Codeine Phosphate (Tylenol/Codeine 300 Mg/30 Mg) 1 ea PO Q4H PRN PRN Reason: pain Calcium Acetate (Phoslo) 667 mg PO TID [facility] Last Admin: 04/27/18 14:45 Dose: Not Given Carvedilol (Coreg) 3.125 mg PO MWF [facility] Epoetin Raza (Procrit) 8,000 unit IV TTS [facility] Dextrose/Sodium Chloride (Dextrose 5%/0.45% Ns 1000 Ml) 1,000 mls @ 60 mls/hr IV .[id number] [facility] Last Admin: 04/27/18 13:12 Dose: Not Given Pantoprazole Sodium (Protonix Inj) 40 mg IVP DAILY [facility] Last Admin: 04/27/18 10:22 Dose: 40 mg Vitamin B Complex/Vit C/Folic Acid (Nephro-Robel) 1 tab PO DAILY [facility] Last Admin: 04/27/18 10:26 Dose: 1 tab Results - Vital Signs Recent Vital Signs: Last Vital Signs Temp 98.1 F 04/27/18 08:01 Pulse 100 H 04/27/18 08:01 Resp 20 04/27/18 08:01 BP 100/61 04/27/18 08:01 Pulse Ox 98 04/27/18 08:01 - Labs Result Diagrams: 04/27/18 06:31 04/26/18 20:09 Labs: Laboratory Results - last 24 hr 04/26/18 04/26/18 04/27/18 18:46 20:09 06:31 WBC 10.7 D 7.3 RBC 3.12 L 2.66 L Hgb 9.4 L D 8.0 L Hct 28.2 L 23.9 L MCV 90.4 89.9 MCH 30.1 30.2 MCHC 33.3 33.6 RDW 19.6 H 19.8 H Plt Count 246 187 MPV 7.7 7.7 Neut % (Auto) 58.4 72.9 Lymph % (Auto) 29.3 16.9 L [place] % (Auto) 9.2 8.5 Eos % (Auto) 1.9 0.9 Baso % (Auto) 1.2 0.8 Neut # (Auto) 6.2 5.3 Lymph # (Auto) 3.1 1.2 [place] # (Auto) 1.0 H 0.6 Eos # (Auto) 0.2 0.1 Baso # (Auto) 0.1 0.1 Sodium 138 Potassium 3.8 Chloride 100 Carbon Dioxide 24 Anion Gap 17 BUN 66 H Creatinine 7.0 H Est GFR ( Amer) 12 Est GFR (Non-Af Amer) 10 Random Glucose 106 Calcium 7.5 L
[2018-04-28 01:59] VITALS: RESP 20; O2SAT 98
[2018-04-28] MEDS: Dextrose 5%/0.45% NS 1,000 ML IV SCH (04:50)
[2018-04-28 08:05] VITALS: BP 110/69; PULSE 90; TEMP 98.1
[2018-04-28 08:26] LABS: BASO # 0.1 K/uL (0.0-0.2); BASO % 0.9 % (0.0-2.0); EOS # 0.1 K/uL (0.0-0.7); EOS % 1.8 % (0.0-4.0); HEMOGLOBIN 8.1 g/dL (12.0-18.0); LYMPH # 1.3 K/uL (1.0-4.3); LYMPH % 20.3 % (20.0-40.0); MEAN CORPUSCULAR HEMOGLOBIN 30.3 pg (27.0-31.0); MEAN CORPUSCULAR HGB CONC 33.3 g/dL (33.0-37.0); MEAN PLATELET VOLUME 7.5 fL (7.2-11.7); MONO # 0.6 K/uL (0.0-0.8); MONO % 10.1 % (0.0-10.0); NEUT # 4.2 K/uL (1.8-7.0); NEUT % 66.9 % (50.0-75.0); RBC 2.66 Mil/uL (4.40-5.90); RED CELL DISTRIBUTION WIDTH 20.1 % (11.5-14.5); WHITE BLOOD COUNT 6.2 K/uL (4.8-10.8)
[2018-04-28] MEDS: Multivitamin Vitamin B Complex (Nephro-Vite) Tab PO SCH (10:09)
--- NOTE | 2018-04-28 15:27 | CP.PCM.PN ---
Subjective - Date & Time of Evaluation Date of Evaluation: 04/28/18 Time of Evaluation: 10:00 - Subjective Subjective: Nephrology Consultation Note: Assessment: stable ESRD on HD via permacath (TTS) hx of b/l massive hydronephrosis and loss of renal cortex s/p b/l nephrostomy now s/p ureteral stent and smith left femoral DVT. neg for HIT/hypercoag work up Anemia, hx of MR vit D def with secondary hyperparathyroidism chronic systolic CHF with LVEF 35% now LVEF normal on latest echo november 2017 s/p bilateral ureteral stents 12/08/17 Transient Hep B antigenemia due to Hep B Vaccination Plan Plan for dialysis as TTS schedule. continue with nephrovite 1 tab/day not on RAAS chaitanya due to low BP. latest LVEF normal. COREG MWF DAYS DOSE ORDERED pt was on systemic a/c with oral coumadin due to hx of DVT last Hb 8 hence ordered WILBER with HD continue with phos binders vascular surgery following Dose meds/antibiotics for dialysis status. Avoid fleets enema/magnesium based laxatives. Avoid nephrotoxins/NSAIDs Glycemic control Further work up/management as per primary team. pt stable for d/c from renal perspective when planned Thanks for allowing me to participate in care of your patient. Will follow patient with you. Please call if any Qs. had d/w team and mother Dr Phillip Dixon Office: [phone] CC: unable to obtain reason for consult; ESRD HPI: Pt is a 27 M with MR and chronic obstructive uropathy and progressive CKD as a result of obstruction, now ESRD on HD (TTS) @ [place] unit, CHF, DVT has left side AVF procedure done and seen today. renal consult for ESRD management hx provided by mother, pt stable. no new complaints had b/l nephrostomy tubes which were changed to indwelling catheter with b/l ureteral stents ROS: pt unable to provide due to MR. overnight events noted Physical Examination: General Appearance: Comfortable, in no acute respiratory distress Vitals reviewed and noted as below Head; Atraumatic, normocephalic ENT: no ulcers no thrush. Tongue is midline. Oropharynx: no rash or ulcers. EYES: Pupils are equal, round and reactive to light accommodation. Eye muscles and extraocular movement intact. Sclera is anicteric. Neck; supple no lymphadenopathy, no thyromegaly or bruit Lungs: Normal respiratory rate/effort. Breath sounds bilateral equal and clear Heart: Normal rate. s1s2 normal. No rub or gallop. Extremities: no edema. No varicose veins Neurological: Patient is alert, awake, has severe MR, non communicative, non verbal Skin: Warm and dry. Normal turgor. No rash. Palpitation: Normal elasticity for age Abdomen: unable as pt not allowing Psych: no insight MSK: no joint tenderness or swelling. Digits and nails normal, no deformity : has smith access: permacath. s/p left radial AVF Labs/imaging reviewed. Past medical history, past surgical history, family history, social history, allergy reviewed and noted as below Family hx: no hx of CKD. Rest non-contributory Objective - Vital Signs/Intake and Output Vital Signs (last 24 hours): Temp Pulse Resp BP Pulse Ox 98.1 F 90 20 110/69 98 04/28/18 08:03 04/28/18 08:03 04/28/18 08:03 04/28/18 08:03 04/28/18 08:03 Intake and Output: 04/28/18 04/28/18 06:59 18:59 Intake Total 250 240 Output Total 500 Balance 250 -260 - Labs Labs: 04/28/18 08:11 04/26/18 20:09 PT 13.0 SECONDS (9.7-12.2) H 04/26/18 10:20 INR 1.2 04/26/18 10:20 APTT 29 SECONDS (21-34) 04/26/18 10:20
== END 2018-04-28 12:46 | disposition home or self-care (01) | DRG 673 ==
LOC: C.SDS 09:07 → C.9S 19:24 → UNDOADMIN 19:24 → C.9S 22:50 → C.3T 22:50
PROVIDERS: ADMIT Surgery; ATTEND Surgery
PROC: 03CC0ZZ Extirpation of Matter from Left Radial Artery, Open Approach (ICD-10-PCS; 2018-04-26)
PROC: 031 Upper Arteries, Bypass (ICD-10-PCS; principal; 2018-04-26 10:00)
DX: N13.9 Obstructive and reflux uropathy, unspecified (principal); N18.6 End stage renal disease; N25.81 Secondary hyperparathyroidism of renal origin; I13.2 Hypertensive heart and chronic kidney disease with heart failure and with stage 5 chronic kidney disease, or end stage renal disease; I50.22 Chronic systolic (congestive) heart failure; F84.0 Autistic disorder; Q90.9 Down syndrome, unspecified; I70.298 Other atherosclerosis of native arteries of extremities, other extremity; Z99.2 Dependence on renal dialysis; E55.9 Vitamin D deficiency, unspecified; Z86.718 Personal history of other venous thrombosis and embolism; Z79.01 Long term (current) use of anticoagulants

== ENCOUNTER 2018-05-12 08:10 | Inpatient (IN) | payer OTHER ==
[2018-02-17 22:58] VITALS: BMI 21.1
[2018-05-12 09:39] LABS: INR 1.1; PROTHROMBIN TIME 11.7 SECONDS (9.7-12.2)
[2018-05-12 09:46] LABS: CALCIUM 8.4 mg/dl (8.6-10.4)
[2018-05-12] MEDS ORDERED: ceFAZolin IV 1 gm in Dextrose 1 GM/50 ML BAG IVPB ONE (11:09)
[2018-05-12] MEDS ORDERED: Lidocaine Hydrochloride 0 ML INJ ONE (11:09)
[2018-05-12] MEDS ORDERED: Bupivacaine 0.25% 20 ML INJ IJ ONE (11:09)
[2018-05-12] MEDS ORDERED: HEPARIN-NS 5,000 UNITS/500 ML 5,000 UNIT/500 ML BAG IV ONE (11:09)
[2018-05-12] MEDS ORDERED: Midazolam 2 MG/2 ML VIAL ONE (12:07)
[2018-05-12] MEDS ORDERED: Propofol 10 mg/ml Inj (20 ML) ONE (12:07)
[2018-05-12] MEDS ORDERED: HYDROmorphone 0.5 mg/0.5 ml ISec IVP PRN (14:10)
[2018-05-12] MEDS ORDERED: Acetaminophen-Codeine 300/30 mg Tab PO PRN (14:40)
[2018-05-12] MEDS ORDERED: Sodium Chloride 0.9% 250 ML IV ONE (16:20)
--- NOTE | 2018-05-12 17:39 | CP.PCM.CON ---
History of Present Illness - History of Present Illness History of Present Illness: Nephrology Consultation Note: Assessment: stable ESRD on HD via permacath (TTS) hx of b/l massive hydronephrosis and loss of renal cortex s/p b/l nephrostomy now s/p ureteral stent and smith left femoral DVT. neg for HIT/hypercoag work up Anemia, hx of MR vit D def with secondary hyperparathyroidism chronic systolic CHF with LVEF 35% now LVEF normal on latest echo november 2017 s/p bilateral ureteral stents 12/08/17 Transient Hep B antigenemia due to Hep B Vaccination Plan Plan for dialysis as TTS schedule. continue with nephrovite 1 tab/day not on RAAS chaitanya due to low BP. latest LVEF normal. COREG MWF DAYS DOSE ORDERED. albumin during hd as needed pt was on systemic a/c with oral coumadin due to hx of DVT, resume once okay with vascular continue with phos binders vascular surgery following NS 250 mL bolus as needed today for low BP. d/w [employer] Dose meds/antibiotics for dialysis status. Avoid fleets enema/magnesium based laxatives. Avoid nephrotoxins/NSAIDs Glycemic control Further work up/management as per primary team. pt stable for d/c from renal perspective when planned Thanks for allowing me to participate in care of your patient. Will follow patient with you. Please call if any Qs. had d/w team and mother Dr Phillip Dixon Office: [phone] CC: unable to obtain reason for consult; ESRD HPI: Pt is a 27 M with MR and chronic obstructive uropathy and progressive CKD as a result of obstruction, now ESRD on HD (TTS) @ [place] unit, CHF, DVT has left side brachiocephalic AVF procedure done and seen today. renal consult for ESRD management hx provided by mother, pt stable. no new complaints had b/l nephrostomy tubes which were changed to indwelling catheter with b/l ureteral stents ROS: pt unable to provide due to MR. overnight events noted Physical Examination: General Appearance: Comfortable, in no acute respiratory distress Vitals reviewed and noted as below Head; Atraumatic, normocephalic ENT: no ulcers no thrush. Tongue is midline. Oropharynx: no rash or ulcers. EYES: Pupils are equal, round and reactive to light accommodation. Eye muscles and extraocular movement intact. Sclera is anicteric. Neck; supple no lymphadenopathy, no thyromegaly or bruit Lungs: Normal respiratory rate/effort. Breath sounds bilateral equal and clear Heart: Normal rate. s1s2 normal. No rub or gallop. Extremities: no edema. No varicose veins Neurological: Patient is alert, awake, has severe MR, non communicative, non verbal Skin: Warm and dry. Normal turgor. No rash. Palpitation: Normal elasticity for age Abdomen: unable as pt not allowing Psych: no insight MSK: no joint tenderness or swelling. Digits and nails normal, no deformity : has smith access: permacath. s/p left radial AVF: failed. s/o left brachiocephalic AVF with good thrill and bruit Labs/imaging reviewed. Past medical history, past surgical history, family history, social history, a llergy reviewed and noted as below Family hx: no hx of CKD. Rest non-contributory Past Patient History - Infectious Disease Hx of Infectious Diseases: None - Tetanus Immunizations Tetanus Immunization: Unknown - Past Medical History & Family History Past Medical History?: Yes - Past Social History Smoking Status: Never Smoked - CARDIAC Hx Cardiac Disorders: Yes Hx Cardia Arrhythmia: Yes Hx Hypertension: Yes Other/Comment: Hypotension. DVT - PULMONARY Hx Respiratory Disorders: No - NEUROLOGICAL Hx 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) Other/Comment: AUTISTIC, DOWN SYNDROME, NON-VERBAL - HEENT Hx HEENT Problems: No - RENAL Hx Chronic Kidney Disease: Yes (on dialysis ) Date of Last Dialysis Treatment: 05/11/18 Hx Kidney Stones: Yes Hx Renal Failure: Yes (ESRD, HD, CKD) Other/Comment: Nephrostomy tubes - ENDOCRINE/METABOLIC Hx Endocrine Disorders: No - HEMATOLOGICAL/ONCOLOGICAL Hx Blood Disorders: No - INTEGUMENTARY Hx Dermatological Problems: Yes Hx Eczema: Yes - MUSCULOSKELETAL/RHEUMATOLOGICAL Hx Musculoskeletal Disorders: Yes Hx Falls: No Hx Unsteady Gait: Yes (WC/CANE?) - GASTROINTESTINAL Hx Gastrointestinal Disorders: Yes Hx Gastritis: Yes - GENITOURINARY/GYNECOLOGICAL Hx Genitourinary Disorders: Yes Hx Hematuria: Yes Hx Urinary Tract Infection: Yes Other/Comment: SMITH since jun 2017. last changed Jan 01, 2018 - PSYCHIATRIC Hx Psychophysiologic Disorder: Yes Hx Substance Use: No Other/Comment: DOWN'S SYNDROME, AUTISM - SURGICAL HISTORY Hx Surgeries: Yes Hx Arteriovenous Shunt: Yes (FISTULA) Hx Vascular Access Device: Yes Other/Comment: CYSTOSCOPY. NEPHROSTOMY TUBES, ROWDY.- removed. kidney stent ? Dialysis cath, upper anterior chest, right - ANESTHESIA Hx Anesthesia: Yes Hx Anesthesia Reactions: No Hx Malignant Hyperthermia: No Has any member of the family had a problem w/ anesthesia?: No Meds Allergies/Adverse Reactions: Allergies Allergy/AdvReac Type Severity Reaction Status Date / Time No Known Allergies Allergy Verified 04/02/18 11:54 - Medications Medications: Current Medications Acetaminophen/Codeine Phosphate (Tylenol/Codeine 300 Mg/30 Mg) 1 ea PO Q4H PRN PRN Reason: pain Albumin Human (Albumin Human 25% (12.5 Gm/50 Ml)) 25 gm IV TTS PRN PRN Reason: Other Ondansetron HCl (Zofran Inj) 4 mg IVP Q6 PRN PRN Reason: Nausea/Vomiting Results - Vital Signs Recent Vital Signs: Last Vital Signs Temp 97.9 F 05/12/18 08:51 Pulse 86 05/12/18 08:51 Resp 18 05/12/18 08:51 BP 113/80 05/12/18 08:51 Pulse Ox 100 05/12/18 08:51 - Labs Result Diagrams: 05/12/18 09:27 Labs: Laboratory Results - last 24 hr 05/12/18 05/12/18 09:27 09:27 PT 11.7 INR 1.1 APTT 31 Sodium 133 Potassium 4.5 Chloride 94 L Carbon Dioxide 28 Anion Gap 16 BUN 47 H Creatinine 5.1 H Est GFR ( Amer) 17 Est GFR (Non-Af Amer) 14 Random Glucose 97 Calcium 8.4 L
[2018-05-12] MEDS ORDERED: Albumin Human 25% (12.5 gm/50 ml) IV ONE (18:45)
--- NOTE | 2018-05-12 20:03 | CP.PCM.CON ---
History of Present Illness - History of Present Illness History of Present Illness: 27 y/o male with down syndrome, chronic systolic heart failure (EF 35%), h/o DVT on AC, h/o chronic obstructive uropathy, CKD now ESRD on HD (TTS), s/p left side brachiocephalic AVF procedure. PAtient was given versed, propofol and fentanyl during surgery. 100 ml/blood loss. Patient noted to be hypotensive post op. ROS:reviewed, unable to obain 2nd down syndrom PMX: EDRD, CHD, DVT Psurg hx: as above Allergies: NKDA Review of Systems - Review of Systems Systems not reviewed;Unavailable: Altered Mental Status Past Patient History - Infectious Disease Hx of Infectious Diseases: None - Tetanus Immunizations Tetanus Immunization: Unknown - Past Medical History & Family History Past Medical History?: Yes - Past Social History Smoking Status: Never Smoked - CARDIAC Hx Cardiac Disorders: Yes Hx Cardia Arrhythmia: Yes Hx Hypertension: Yes Other/Comment: Hypotension. DVT - PULMONARY Hx Respiratory Disorders: No - NEUROLOGICAL Hx 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) Other/Comment: AUTISTIC, DOWN SYNDROME, NON-VERBAL - HEENT Hx HEENT Problems: No - RENAL Hx Chronic Kidney Disease: Yes (on dialysis T--) Date of Last Dialysis Treatment: 05/11/18 Hx Kidney Stones: Yes Hx Renal Failure: Yes (ESRD, HD, CKD) Other/Comment: Nephrostomy tubes - ENDOCRINE/METABOLIC Hx Endocrine Disorders: No - HEMATOLOGICAL/ONCOLOGICAL Hx Blood Disorders: No - INTEGUMENTARY Hx Dermatological Problems: Yes Hx Eczema: Yes - MUSCULOSKELETAL/RHEUMATOLOGICAL Hx Musculoskeletal Disorders: Yes Hx Falls: No Hx Unsteady Gait: Yes (WC/CANE?) - GASTROINTESTINAL Hx Gastrointestinal Disorders: Yes Hx Gastritis: Yes - GENITOURINARY/GYNECOLOGICAL Hx Genitourinary Disorders: Yes Hx Hematuria: Yes Hx Urinary Tract Infection: Yes Other/Comment: REYES since jun 2017. last changed Jan 01, 2018 - PSYCHIATRIC Hx Psychophysiologic Disorder: Yes Hx Substance Use: No Other/Comment: DOWN'S SYNDROME, AUTISM - SURGICAL HISTORY Hx Surgeries: Yes Hx Arteriovenous Shunt: Yes (FISTULA) Hx Vascular Access Device: Yes Other/Comment: CYSTOSCOPY. NEPHROSTOMY TUBES, ROWDY.- removed. kidney stent ? Dialysis cath, upper anterior chest, right - ANESTHESIA Hx Anesthesia: Yes Hx Anesthesia Reactions: No Hx Malignant Hyperthermia: No Has any member of the family had a problem w/ anesthesia?: No Meds Allergies/Adverse Reactions: Allergies Allergy/AdvReac Type Severity Reaction Status Date / Time No Known Allergies Allergy Verified 04/02/18 11:54 - Medications Medications: Current Medications Acetaminophen/Codeine Phosphate (Tylenol/Codeine 300 Mg/30 Mg) 1 ea PO Q4H PRN PRN Reason: pain Albumin Human (Albumin Human 25% (12.5 Gm/50 Ml)) 25 gm IV TTS PRN PRN Reason: BP <90/50 Ondansetron HCl (Zofran Inj) 4 mg IVP Q6 PRN PRN Reason: Nausea/Vomiting Physical Exam - Eye Exam Eye Exam: EOMI, Normal appearance - Respiratory Exam Respiratory Exam: Clear to Auscultation Bilateral, NORMAL BREATHING PATTERN - Cardiovascular Exam Cardiovascular Exam: REGULAR RHYTHM, +S1, +S2, Systolic Murmur - GI/Abdominal Exam GI & Abdominal Exam: Normal Bowel Sounds, Soft - Extremities Exam Extremities exam: Positive for: normal inspection. Negative for: pedal edema Results - Vital Signs Recent Vital Signs: Last Vital Signs Temp 97.9 F 05/12/18 08:51 Pulse 86 05/12/18 08:51 Resp 18 05/12/18 08:51 BP 113/80 05/12/18 08:51 Pulse Ox 100 05/12/18 08:51 - Labs Result Diagrams: 05/12/18 09:27 Labs: Laboratory Results - last 24 hr 05/12/18 05/12/18 09:27 09:27 PT 11.7 INR 1.1 APTT 31 Sodium 133 Potassium 4.5 Chloride 94 L Carbon Dioxide 28 Anion Gap 16 BUN 47 H Creatinine 5.1 H Est GFR ( Amer) 17 Est GFR (Non-Af Amer) 14 Random Glucose 97 Calcium 8.4 L Assessment & Plan - Assessment and Plan (Free Text) Assessment: Hypotension: post op liekly 2nd versed, avoid all sedation, monitor BP, check lactic, trop, bnp, CXR, keep MAP >65, fluid boluses as tolerated ESRD: HD as per renal -DVT:start AC when hemostasis assertained by vascular -pud ppx protonix Patient will benefit from ICU monitoring until versed metabolized and MAP >65 d/w ICU nursing and PACU -Multiple diagnostic tests pending - Date & Time Date: 05/12/18 Time: 20:06
[2018-05-12 20:27] LABS: BASO # 0.1 K/uL (0.0-0.2); BASO % 0.8 % (0.0-2.0); EOS # 0.1 K/uL (0.0-0.7); EOS % 0.5 % (0.0-4.0); HEMOGLOBIN 9.1 g/dL (12.0-18.0); LYMPH # 1.7 K/uL (1.0-4.3); LYMPH % 16.2 % (20.0-40.0); MEAN CELL VOLUME 92.3 fL (80.0-94.0); MEAN CORPUSCULAR HEMOGLOBIN 30.5 pg (27.0-31.0); MEAN CORPUSCULAR HGB CONC 33.1 g/dL (33.0-37.0); MEAN PLATELET VOLUME 7.4 fL (7.2-11.7); MONO # 0.6 K/uL (0.0-0.8); MONO % 5.9 % (0.0-10.0); NEUT # 7.9 K/uL (1.8-7.0); NEUT % 76.6 % (50.0-75.0); NRBC % 0.1 % (0.0-2.0); RBC 2.98 Mil/uL (4.40-5.90); WHITE BLOOD COUNT 10.4 K/uL (4.8-10.8)
[2018-05-12 20:52] LABS: ALBUMIN 3.5 g/dL (3.5-5.0); ALT/SGPT 27 U/L (21-72); AST/SGOT 21 U/L (17-59); BLOOD UREA NITROGEN 50 mg/dL (9-20); CALCIUM 7.9 mg/dl (8.6-10.4); GFR NON-AFRICAN AMERICAN 12
[2018-05-12 21:04] LABS: B-TYPE NATRIURETIC PEPTIDE 204 pg/mL (0-450)
--- NOTE | 2018-05-13 02:07 | OP ---
PROCEDURE DATE: 05/12/2018 PREOPERATIVE DIAGNOSIS: Chronic renal failure. POSTOPERATIVE DIAGNOSIS: Chronic renal failure. PROCEDURE PERFORMED: Left antecubital arteriovenous fistula. SURGEON: Aleks Del Rio MD ANESTHESIA: General endotracheal. ESTIMATED BLOOD LOSS: 100 mL. POSTOPERATIVE CONDITION: Stable. INDICATIONS FOR SURGERY: This is a 28-year-old male, status post placement of a left wrist radial fistula, complicated by a very small radial artery, which round up thrombosing about a week after we put it. He now will undergo more proximal placement of a brachiocephalic fistula. DESCRIPTION OF PROCEDURE: The patient was taken to the operating room. General anesthesia was administered. The left arm was prepped and draped. An incision was made into the left antecubital fossa. The cephalic vein was mobilized proximally and distally, transected distally, and flushed with heparinized saline. The brachial artery was then carefully dissected free proximally and distally. The incision had to be extended in order to gain better exposure dissecting the brachial artery. Once this was done, heparin was administered. The brachial artery was opened and found to have some atherosclerotic debris and modified endarterectomy was performed. Arteriovenous anastomosis accomplished with 6-0 Prolene. There was a nice thrill in the vein at the conclusion of the procedure and blood flow by Doppler in the artery proximally and distally. Because of the tightness of the anastomosis, advancement flaps were raised in order to take tension off this closure. Full-thickness flaps were raised. Counter incisions were made, and a 22 sq cm advancement flap closure was performed overlying the fistula. This was accomplished with Monocryl and Subcuticular Monocryl. At the conclusion of the case, there was a bruit by stethoscope noted within the cephalic vein. The patient tolerated the procedure well and returned to recovery room in stable condition. Aleks Del Rio MD
[2018-05-13 06:17] LABS: BASO # 0.1 K/uL (0.0-0.2); BASO % 0.9 % (0.0-2.0); EOS # 0.1 K/uL (0.0-0.7); EOS % 1.3 % (0.0-4.0); LYMPH # 1.4 K/uL (1.0-4.3); LYMPH % 17.7 % (20.0-40.0); MEAN CELL VOLUME 94.4 fL (80.0-94.0); MEAN CORPUSCULAR HGB CONC 32.9 g/dL (33.0-37.0); MEAN PLATELET VOLUME 7.8 fL (7.2-11.7); MONO # 0.6 K/uL (0.0-0.8); MONO % 7.9 % (0.0-10.0); NEUT # 5.9 K/uL (1.8-7.0); NEUT % 72.2 % (50.0-75.0); RBC 2.9 Mil/uL (4.40-5.90); RED CELL DISTRIBUTION WIDTH 20.1 % (11.5-14.5); WHITE BLOOD COUNT 8.2 K/uL (4.8-10.8)
[2018-05-13 06:31] LABS: ALB/GLOB RATIO 0.9 (1.0-2.1); ALBUMIN 3.4 g/dL (3.5-5.0); CALCIUM 8.1 mg/dl (8.6-10.4)
[2018-05-13 06:44] LABS: INR 1.1; PROTHROMBIN TIME 12.3 SECONDS (9.7-12.2)
--- NOTE | 2018-05-13 07:40 | CP.CCUPN ---
CCU Subjective - Physician Review Subjective (Free Text): 05/13/18 09:15 Patient seen and examined at bedside. No acute events overnight. Patient is resting comfortably, mother at bedside. Patient is stable for transfer to [facility]. Critical Care Time Spent (in minutes): 35 CCU Objective - Vital Signs / Intake & Output Vital Signs (Last 4 hours): Vital Signs Pulse Resp BP Pulse Ox 05/13/18 07:00 68 14 05/13/18 06:00 69 15 05/13/18 05:32 114 H 15 98/55 L 05/13/18 05:00 70 13 100 05/13/18 04:00 74 14 99 Intake and Output (Last 8hrs): Intake & Output 05/12/18 05/13/18 05/13/18 22:59 06:59 14:59 Intake Total 300 50 0 Output Total 200 Balance 300 -150 0 Weight 48.988 kg Intake: IV 300 Oral 0 50 0 Output: Urine 200 Urethral (Nick) 200 Other: Voiding Method Indwelling Catheter # Bowel Movements 0 - Physical Exam Head: Positive for: Atraumatic, Normocephalic Pupils: Positive for: PERRL Conjunctiva: Positive for: Normal Mouth: Positive for: Moist Mucous Membranes Respiratory/Chest: Positive for: Clear to Auscultation, Good Air Exchange. Negative for: Respiratory Distress, Accessory Muscle Use, Wheezes, Rales, Rhonchi Cardiovascular: Positive for: Regular Rate and Rhythm, Normal S1, S2. Negative for: Murmurs Abdomen: Positive for: Normal Bowel Sounds. Negative for: Tenderness, Di stention, Peritoneal Signs Upper Extremity: Positive for: Other (Newly placed AV fistula on left arm with audible bruit and palpable thrill, dressing C/D/I.). Negative for: Edema Lower Extremity: Positive for: Normal Inspection. Negative for: Edema Neurological: Positive for: GCS=15 Skin: Positive for: Warm, Dry, Normal Color, Other (Permacath on upper right chest, dressing C/D/I). Negative for: Rashes Psychiatric: Positive for: Alert - Medications Active Medications: Active Medications Generic Name Dose Route Start Last Admin Trade Name Freq PRN Reason Stop Dose Admin Acetaminophen/Codeine Phosphate 1 ea 05/12/18 14:40 Tylenol/Codeine 300 Mg/30 Mg PO Q4H PRN pain Albumin Human 25 gm 05/13/18 10:00 Albumin Human 25% (12.5 Gm/50 Ml) IV TTS PRN BP <90/50 Ondansetron HCl 4 mg 05/12/18 14:40 Zofran Inj IVP Q6 PRN Nausea/Vomiting - Patient Studies Lab Studies: Lab Studies 05/13/18 05/13/18 05/13/18 Range/Units 06:09 06:09 06:09 WBC 8.2 (4.8-10.8) K/uL RBC 2.90 L (4.40-5.90) Mil/uL Hgb 9.0 L (12.0-18.0) g/dL Hct 27.3 L (35.0-51.0) % MCV 94.4 H D (80.0-94.0) fL MCH 31.0 (27.0-31.0) pg MCHC 32.9 L (33.0-37.0) g/dL RDW 20.1 H (11.5-14.5) % Plt Count 231 (130-400) K/uL MPV 7.8 (7.2-11.7) fL Neut % (Auto) 72.2 (50.0-75.0) % Lymph % (Auto) 17.7 L (20.0-40.0) % Newberry % (Auto) 7.9 (0.0-10.0) % Eos % (Auto) 1.3 (0.0-4.0) % Baso % (Auto) 0.9 (0.0-2.0) % Neut # (Auto) 5.9 (1.8-7.0) K/uL Lymph # (Auto) 1.4 (1.0-4.3) K/uL Newberry # (Auto) 0.6 (0.0-0.8) K/uL Eos # (Auto) 0.1 (0.0-0.7) K/uL Baso # (Auto) 0.1 (0.0-0.2) K/uL PT 12.3 H (9.7-12.2) SECONDS INR 1.1 APTT (21-34) SECONDS Sodium 138 (132-148) mmol/L Potassium 4.7 (3.6-5.2) mmol/L Chloride 104 (98-107) mmol/L Carbon Dioxide 23 (22-30) mmol/L Anion Gap 16 (10-20) BUN 58 H (9-20) mg/dL Creatinine 6.0 H (0.8-1.5) mg/dL Est GFR ( Amer) 14 Est GFR (Non-Af Amer) 11 Random Glucose 94 (75-110) mg/dL Lactic Acid (0.7-2.1) mmol/L Calcium 8.1 L (8.6-10.4) mg/dl Phosphorus 4.5 (2.5-4.5) mg/dL Magnesium 1.9 (1.6-2.3) mg/dL Total Bilirubin 0.2 (0.2-1.3) mg/dL AST 22 (17-59) U/L ALT 26 (21-72) U/L Alkaline Phosphatase 53 (38-126) U/L Troponin I (0.00-0.120) ng/mL NT-Pro-B Natriuret Pep (0-450) pg/mL Total Protein 6.9 (6.3-8.3) g/dL Albumin 3.4 L (3.5-5.0) g/dL Globulin 3.6 (2.2-3.9) gm/dL Albumin/Globulin Ratio 0.9 L (1.0-2.1) 05/12/18 05/12/18 05/12/18 Range/Units 20:22 20:22 20:22 WBC 10.4 D (4.8-10.8) K/uL RBC 2.98 L (4.40-5.90) Mil/uL Hgb 9.1 L (12.0-18.0) g/dL Hct 27.5 L (35.0-51.0) % MCV 92.3 (80.0-94.0) fL MCH 30.5 (27.0-31.0) pg MCHC 33.1 (33.0-37.0) g/dL RDW 20.0 H (11.5-14.5) % Plt Count 228 (130-400) K/uL MPV 7.4 (7.2-11.7) fL Neut % (Auto) 76.6 H (50.0-75.0) % Lymph % (Auto) 16.2 L (20.0-40.0) % Newberry % (Auto) 5.9 (0.0-10.0) % Eos % (Auto) 0.5 (0.0-4.0) % Baso % (Auto) 0.8 (0.0-2.0) % Neut # (Auto) 7.9 H (1.8-7.0) K/uL Lymph # (Auto) 1.7 (1.0-4.3) K/uL Newberry # (Auto) 0.6 (0.0-0.8) K/uL Eos # (Auto) 0.1 (0.0-0.7) K/uL Baso # (Auto) 0.1 (0.0-0.2) K/uL PT (9.7-12.2) SECONDS INR APTT (21-34) SECONDS Sodium 136 (132-148) mmol/L Potassium 4.3 (3.6-5.2) mmol/L Chloride 98 (98-107) mmol/L Carbon Dioxide 27 (22-30) mmol/L Anion Gap 16 (10-20) BUN 50 H (9-20) mg/dL Creatinine 5.9 H (0.8-1.5) mg/dL Est GFR ( Amer) 14 Est GFR (Non-Af Amer) 12 Random Glucose 103 (75-110) mg/dL Lactic Acid 0.9 (0.7-2.1) mmol/L Calcium 7.9 L (8.6-10.4) mg/dl Phosphorus 4.3 (2.5-4.5) mg/dL Magnesium 1.8 (1.6-2.3) mg/dL Total Bilirubin 0.2 (0.2-1.3) mg/dL AST 21 (17-59) U/L ALT 27 (21-72) U/L Alkaline Phosphatase 55 (38-126) U/L Troponin I < 0.0120 (0.00-0.120) ng/mL NT-Pro-B Natriuret Pep 204 (0-450) pg/mL Total Protein 7.1 (6.3-8.3) g/dL Albumin 3.5 (3.5-5.0) g/dL Globulin 3.6 (2.2-3.9) gm/dL Albumin/Globulin Ratio 1.0 (1.0-2.1) 05/12/18 05/12/18 Range/Units 09:27 09:27 WBC (4.8-10.8) K/uL RBC (4.40-5.90) Mil/uL Hgb (12.0-18.0) g/dL Hct (35.0-51.0) % MCV (80.0-94.0) fL MCH (27.0-31.0) pg MCHC (33.0-37.0) g/dL RDW (11.5-14.5) % Plt Count (130-400) K/uL MPV (7.2-11.7) fL Neut % (Auto) (50.0-75.0) % Lymph % (Auto) (20.0-40.0) % Newberry % (Auto) (0.0-10.0) % Eos % (Auto) (0.0-4.0) % Baso % (Auto) (0.0-2.0) % Neut # (Auto) (1.8-7.0) K/uL Lymph # (Auto) (1.0-4.3) K/uL Newberry # (Auto) (0.0-0.8) K/uL Eos # (Auto) (0.0-0.7) K/uL Baso # (Auto) (0.0-0.2) K/uL PT 11.7 (9.7-12.2) SECONDS INR 1.1 APTT 31 (21-34) SECONDS Sodium 133 (132-148) mmol/L Potassium 4.5 (3.6-5.2) mmol/L Chloride 94 L (98-107) mmol/L Carbon Dioxide 28 (22-30) mmol/L Anion Gap 16 (10-20) BUN 47 H (9-20) mg/dL Creatinine 5.1 H (0.8-1.5) mg/dL Est GFR ( Amer) 17 Est GFR (Non-Af Amer) 14 Random Glucose 97 (75-110) mg/dL Lactic Acid (0.7-2.1) mmol/L Calcium 8.4 L (8.6-10.4) mg/dl Phosphorus (2.5-4.5) mg/dL Magnesium (1.6-2.3) mg/dL Total Bilirubin (0.2-1.3) mg/dL AST (17-59) U/L ALT (21-72) U/L Alkaline Phosphatase (38-126) U/L Troponin I (0.00-0.120) ng/mL NT-Pro-B Natriuret Pep (0-450) pg/mL Total Protein (6.3-8.3) g/dL Albumin (3.5-5.0) g/dL Globulin (2.2-3.9) gm/dL Albumin/Globulin Ratio (1.0-2.1) Laboratory Results - last 24 hr 05/12/18 05/12/18 05/12/18 09:27 09:27 20:22 WBC RBC Hgb Hct MCV MCH MCHC RDW Plt Count MPV Neut % (Auto) Lymph % (Auto) Newberry % (Auto) Eos % (Auto) Baso % (Auto) Neut # (Auto) Lymph # (Auto) Newberry # (Auto) Eos # (Auto) Baso # (Auto) PT 11.7 INR 1.1 APTT 31 Sodium 133 136 Potassium 4.5 4.3 Chloride 94 L 98 Carbon Dioxide 28 27 Anion Gap 16 16 BUN 47 H 50 H Creatinine 5.1 H 5.9 H Est GFR ( Amer) 17 14 Est GFR (Non-Af Amer) 14 12 Random Glucose 97 103 Lactic Acid Calcium 8.4 L 7.9 L Phosphorus 4.3 Magnesium 1.8 Total Bilirubin 0.2 AST 21 ALT 27 Alkaline Phosphatase 55 Troponin I < 0.0120 NT-Pro-B Natriuret Pep 204 Total Protein 7.1 Albumin 3.5 Globulin 3.6 Albumin/Globulin Ratio 1.0 05/12/18 05/12/18 05/13/18 20:22 20:22 06:09 WBC 10.4 D 8.2 RBC 2.98 L 2.90 L Hgb 9.1 L 9.0 L Hct 27.5 L 27.3 L MCV 92.3 94.4 H D MCH 30.5 31.0 MCHC 33.1 32.9 L RDW 20.0 H 20.1 H Plt Count 228 231 MPV 7.4 7.8 Neut % (Auto) 76.6 H 72.2 Lymph % (Auto) 16.2 L 17.7 L Newberry % (Auto) 5.9 7.9 Eos % (Auto) 0.5 1.3 Baso % (Auto) 0.8 0.9 Neut # (Auto) 7.9 H 5.9 Lymph # (Auto) 1.7 1.4 Newberry # (Auto) 0.6 0.6 Eos # (Auto) 0.1 0.1 Baso # (Auto) 0.1 0.1 PT INR APTT Sodium Potassium Chloride Carbon Dioxide Anion Gap BUN Creatinine Est GFR ( Amer) Est GFR (Non-Af Amer) Random Glucose Lactic Acid 0.9 Calcium Phosphorus Magnesium Total Bilirubin AST ALT Alkaline Phosphatase Troponin I NT-Pro-B Natriuret Pep Total Protein Albumin Globulin Albumin/Globulin Ratio 05/13/18 05/13/18 06:09 06:09 WBC RBC Hgb Hct MCV MCH MCHC RDW Plt Count MPV Neut % (Auto) Lymph % (Auto) Newberry % (Auto) Eos % (Auto) Baso % (Auto) Neut # (Auto) Lymph # (Auto) Newberry # (Auto) Eos # (Auto) Baso # (Auto) PT 12.3 H INR 1.1 APTT Sodium 138 Potassium 4.7 Chloride 104 Carbon Dioxide 23 Anion Gap 16 BUN 58 H Creatinine 6.0 H Est GFR ( Amer) 14 Est GFR (Non-Af Amer) 11 Random Glucose 94 Lactic Acid Calcium 8.1 L Phosphorus 4.5 Magnesium 1.9 Total Bilirubin 0.2 AST 22 ALT 26 Alkaline Phosphatase 53 Troponin I NT-Pro-B Natriuret Pep Total Protein 6.9 Albumin 3.4 L Globulin 3.6 Albumin/Globulin Ratio 0.9 L Critical Care Progress Note - Nutrition Nutrition: Nutrition Category Date Time Status Regular Diet [DIET] Diets 05/12/18 Dinner Active Assessment/Plan - Assessment and Plan (Free Text) Assessment: Patient is a 27 year old male with down syndrome, chronic systolic heart failure (EF 35%), DVT on AC, chronic obstructive uropathy, CKD now ESRD on HD (TTS). Patient in ICU for hypotension s/p left side brachiocephalic AVF procedure. Plan: Neuro: Down syndrome: - Post op, s/p Versed, Fentanyl, Propofol - PT/OT Cardiovascular: Hypotension - Post op, s/p Versed, Fentanyl, Propofol - NS 250mL bolus - Continue to monitor - Hold anihypertensive medications Chronic systolic CHF - EF: 35% - Patient asymptomatic Hx of DVT - Home Coumadin held for procedure - Resume anticoagulation as per surgery Pulm: - No acute issues GI: - No acute issues Renal: ESRD - Hemodialysis TTS - S/p AV fistula - Vascular surgery consulted, Dr. Del Rio - Nephrology consulted, Dr. Dixon - Nephrovite 1 tab/day - Albumin during HD as needed - Phosphate binders - NS 250mL bolus - Zofran 4mg IVP PRN Heme: Normocytic Anemia - Hb/Hct: 9.0/27.3 - Continue to monitor ID: - No acute issues Prophylaxis: - SCD's - VTE contraindicated due to surgery Case discussed with Dr. Jacob Hall. PGY-1
[2018-05-13] MEDS ORDERED: Albumin Human 25% (12.5 gm/50 ml) IV PRN (10:00)
--- NOTE | 2018-05-13 10:21 | RAD ---
Chest x-ray single frontal view History: Hypertension. Comparison: 04/02/2018 Findings: Right central venous catheter tip extending into the right atrium. Mild venous congestion. Right hilar prominence. Heart size within normal limits. Bilateral nephroureteral stents in place. Impression: Right central venous catheter tip extending into the right atrium. Mild venous congestion. Right hilar prominence. Heart size within normal limits. Bilateral nephroureteral stents in place.
--- NOTE | 2018-05-13 12:08 | CP.PCM.PN ---
Subjective - Date & Time of Evaluation Date of Evaluation: 05/13/18 Time of Evaluation: 12:08 - Subjective Subjective: Nephrology Consultation Note: Assessment: stable ESRD on HD via permacath (TTS) hx of b/l massive hydronephrosis and loss of renal cortex s/p b/l nephrostomy now s/p ureteral stent and smith left femoral DVT. neg for HIT/hypercoag work up Anemia, hx of MR vit D def with secondary hyperparathyroidism chronic systolic CHF with LVEF 35% now LVEF normal on latest echo november 2017 s/p bilateral ureteral stents 12/08/17 Transient Hep B antigenemia due to Hep B Vaccination Plan Plan for dialysis as TTS schedule. continue with nephrovite 1 tab/day not on RAAS chaitanya due to low BP. latest LVEF normal. COREG MWF DAYS DOSE ORDERED. albumin during hd as needed pt was on systemic a/c with oral coumadin due to hx of DVT, resume once okay with vascular continue with phos binders vascular surgery following epogen with HD Dose meds/antibiotics for dialysis status. Avoid fleets enema/magnesium based laxatives. Avoid nephrotoxins/NSAIDs Glycemic control Further work up/management as per primary team. pt stable for d/c from renal perspective when planned Thanks for allowing me to participate in care of your patient. Will follow pat ient with you. Please call if any Qs. had d/w team and mother Dr Phillip Dixon Office: [phone] CC: unable to obtain reason for consult; ESRD HPI: Pt is a 27 M with MR and chronic obstructive uropathy and progressive CKD as a result of obstruction, now ESRD on HD (TTS) @ [place] unit, CHF, DVT has left side brachiocephalic AVF procedure done and seen today. renal consult for ESRD management hx provided by mother, pt stable. no new complaints had b/l nephrostomy tubes which were changed to indwelling catheter with b/l ureteral stents ROS: pt unable to provide due to MR. overnight events noted Physical Examination: seen on HD General Appearance: Comfortable, in no acute respiratory distress Vitals reviewed and noted as below Head; Atraumatic, normocephalic ENT: no ulcers no thrush. Tongue is midline. Oropharynx: no rash or ulcers. EYES: Pupils are equal, round and reactive to light accommodation. Eye muscles and extraocular movement intact. Sclera is anicteric. Neck; supple no lymphadenopathy, no thyromegaly or bruit Lungs: Normal respiratory rate/effort. Breath sounds bilateral equal and clear Heart: Normal rate. s1s2 normal. No rub or gallop. Extremities: no edema. No varicose veins Neurological: Patient is alert, awake, has severe MR, non communicative, non verbal Skin: Warm and dry. Normal turgor. No rash. Palpitation: Normal elasticity for age Abdomen: unable as pt not allowing Psych: no insight MSK: no joint tenderness or swelling. Digits and nails normal, no deformity : has smith access: permacath. s/p left radial AVF: failed. s/o left brachiocephalic AVF with good thrill and bruit Labs/imaging reviewed. Past medical history, past surgical history, family history, social history, allergy reviewed and noted as below Family hx: no hx of CKD. Rest non-contributory Objective - Vital Signs/Intake and Output Vital Signs (last 24 hours): Temp Pulse Resp BP Pulse Ox 98 F 85 15 114/57 L 98 05/13/18 09:33 05/13/18 11:18 05/13/18 11:18 05/13/18 11:33 05/13/18 09:33 Intake and Output: 05/13/18 05/13/18 06:59 18:59 Intake Total 50 300 Output Total 200 500 Balance -150 -200 - Medications Medications: Current Medications Acetaminophen/Codeine Phosphate (Tylenol/Codeine 300 Mg/30 Mg) 1 ea PO Q4H PRN PRN Reason: pain Albumin Human (Albumin Human 25% (12.5 Gm/50 Ml)) 25 gm IV TTS PRN PRN Reason: BP <90/50 Epoetin Raza (Procrit) 8,000 unit IV TTS [place] Ondansetron HCl (Zofran Inj) 4 mg IVP Q6 PRN PRN Reason: Nausea/Vomiting - Labs Labs: 05/13/18 06:09 05/13/18 06:09 PT 12.3 SECONDS (9.7-12.2) H 05/13/18 06:09 INR 1.1 05/13/18 06:09 APTT 31 SECONDS (21-34) 05/12/18 09:27
[2018-05-13] MEDS ORDERED: EPOETIN ALFA 4,000 UNIT/ML ML Dialysis IV SCH (12:30)
[2018-05-13 13:09] VITALS: TEMP 97.7; O2SAT 97
[2018-05-13 13:32] VITALS: BP 93/49; PULSE 88; RESP 16
== END 2018-05-13 13:30 | disposition home or self-care (01) | DRG 252 ==
LOC: C.9S 08:10 → EDSTATUS 10:00 → C.9I 20:45
PROVIDERS: ADMIT Surgery; ATTEND Surgery
PROC: 03C80ZZ Extirpation of Matter from Left Brachial Artery, Open Approach (ICD-10-PCS; 2018-05-12)
PROC: 03180ZD Bypass Left Brachial Artery to Upper Arm Vein, Open Approach (ICD-10-PCS; principal; 2018-05-12 10:00)
PROC: 5A1D70Z Performance of Urinary Filtration, Intermittent, Less than 6 Hours Per Day (ICD-10-PCS; 2018-05-13)
DX: T82.868A Thrombosis due to vascular prosthetic devices, implants and grafts, initial encounter (principal); N18.6 End stage renal disease; I13.2 Hypertensive heart and chronic kidney disease with heart failure and with stage 5 chronic kidney disease, or end stage renal disease; I50.22 Chronic systolic (congestive) heart failure; I70.208 Unspecified atherosclerosis of native arteries of extremities, other extremity; N25.81 Secondary hyperparathyroidism of renal origin; F84.0 Autistic disorder; I95.81 Postprocedural hypotension; N13.9 Obstructive and reflux uropathy, unspecified; Q90.9 Down syndrome, unspecified; D64.9 Anemia, unspecified; E55.9 Vitamin D deficiency, unspecified; R26.81 Unsteadiness on feet; Z86.718 Personal history of other venous thrombosis and embolism; Z79.01 Long term (current) use of anticoagulants; Z87.440 Personal history of urinary (tract) infections; Z87.442 Personal history of urinary calculi; Z99.2 Dependence on renal dialysis; Z23 Encounter for immunization

== ENCOUNTER 2018-07-30 06:01 | Inpatient (IN) | payer OTHER | END 2018-08-09 15:56 | disposition home or self-care (01) | DRG 987 | LOC: C.SDS 06:01 → C.9S 09:09 → C.5S 09:59 | PROC: 0T778DZ Dilation of Left Ureter with Intraluminal Device, Via Natural or Artificial Opening Endoscopic (ICD-10-PCS; principal; 2018-07-30 07:55) | PROC: 0T768DZ Dilation of Right Ureter with Intraluminal Device, Via Natural or Artificial Opening Endoscopic (ICD-10-PCS; 2018-07-30 07:55) | PROC: 0TP98DZ Removal of Intraluminal Device from Ureter, Via Natural or Artificial Opening Endoscopic (ICD-10-PCS; 2018-07-30 07:55) | PROC: BT1D1ZZ Fluoroscopy of Right Kidney, Ureter and Bladder using Low Osmolar Contrast (ICD-10-PCS; 2018-07-30 07:55) | PROC: 5A1D70Z Performance of Urinary Filtration, Intermittent, Less than 6 Hours Per Day (ICD-10-PCS; 2018-07-30 07:55) | DX: I95.2 Hypotension due to drugs (principal); N18.6 End stage renal disease; N39.0 Urinary tract infection, site not specified; T83.511A Infection and inflammatory reaction due to indwelling urethral catheter, initial encounter; F84.0 Autistic disorder; I42.9 Cardiomyopathy, unspecified; I50.22 Chronic systolic (congestive) heart failure; N25.81 Secondary hyperparathyroidism of renal origin; I82.502 Chronic embolism and thrombosis of unspecified deep veins of left lower extremity; N13.2 Hydronephrosis with renal and ureteral calculous obstruction; B19.10 Unspecified viral hepatitis B without hepatic coma; Q90.9 Down syndrome, unspecified; T42.4X5A Adverse effect of benzodiazepines, initial encounter; Z93.6 Other artificial openings of urinary tract status; E55.9 Vitamin D deficiency, unspecified; N13.9 Obstructive and reflux uropathy, unspecified; Z99.2 Dependence on renal dialysis; Z79.01 Long term (current) use of anticoagulants; I35.1 Nonrheumatic aortic (valve) insufficiency; E86.9 Volume depletion, unspecified; N31.9 Neuromuscular dysfunction of bladder, unspecified; Y84.6 Urinary catheterization as the cause of abnormal reaction of the patient, or of later complication, without mention of misadventure at the time of the procedure; D63.1 Anemia in chronic kidney disease; R00.0 Tachycardia, unspecified ==

== ENCOUNTER 2018-09-13 12:08 | Day surgery (SDC) | payer OTHER ==
[2018-02-17 22:58] VITALS: BMI 21.1
[2018-09-13 14:41] LABS: CALCIUM 9.3 mg/dl (8.6-10.4)
[2018-09-13] MEDS ORDERED: Iohexol 240 200 ML ONE (15:08)
[2018-09-13] MEDS ORDERED: Lidocaine Hydrochloride 10 ML INJ ONE (15:08)
[2018-09-13] MEDS ORDERED: Midazolam 2 MG/2 ML VIAL ONE (15:15)
[2018-09-13] MEDS ORDERED: Sodium Chloride 0.9% 1,000 ML IV ONE (15:53)
[2018-09-13] MEDS ORDERED: HYDROmorphone 0.5 mg/0.5 ml ISec IVP PRN (15:53)
--- NOTE | 2018-09-13 16:01 | RAD ---
Date of service: 09/13/2018 PROCEDURE: Intraoperative Fluoroscopy. HISTORY: RETENTION FINDINGS: Fluoroscopic assistance was provided. Fluoroscopy time = 3.1 sec. Radiation dose = 0.2110 mGy-cm . Please refer to the operative report from DES Infante, , MD SUKHWINDER.
[2018-09-13 17:51] VITALS: BP 102/64; PULSE 95; RESP 20; TEMP 97.8; O2SAT 100
--- NOTE | 2018-09-14 06:16 | OP ---
PROCEDURE DATE: 09/13/2018 UROLOGY OPERATIVE REPORT PREOPERATIVE DIAGNOSIS: Urinary retention, hydronephrosis, renal failure, hematuria, hypospadia secondary to Nick catheter and retained stent. POSTOPERATIVE DIAGNOSIS: Urinary retention, hydronephrosis, renal failure, hematuria, hypospadia secondary to Nick catheter and retained stent. PROCEDURE: Today, insertion of a cystostomy tube and cystogram. Upon cystostomy due to ____ cystogram is done. COMPLICATIONS: There were no complications. INDICATIONS: Please see history and physical for further details. A very pleasant gentleman autosomal dominant. He is here to insert a new onset cystostomy tube. See the history and physical for further details. The patient is here now with no complications noted. The blood loss is less than 10 mL. FINDINGS: No specific abnormality. At the time of admission, the patient had both a Nick catheter via urethra and a cystostomy tube. There were no complications. DESCRIPTION OF PROCEDURE: The patient was brought to the OR and placed on the table. Routine monitors placed. We have gotten a new set of laboratory studies given dialysis situation. Mother of the patient . The consent is from the mother, but we explained to Vince, what we are going to do. We brought to the OR, placed on table. We kept him in a supine position throughout the whole time. We gently carefully prepared him. Time-out was called to confirm patient and positioning. Through the indwelling Nick catheter which we prepared in a sterile way, we infused fluid and distended the bladder. Time-out was called to confirm patient and positioning. We marked using a marking pen about quarter to three fingerbreadths above the pubic bone. We filled up the bladder. The patient was given sedation. We were able to fill the bladder nicely distended. You could see it filling up. I used a finder needle with spinal needle. We measured the length of the bladder from the bladder wall without complication. We then measured the same length for the suprapubic catheter. We made a small incision. We used Marcaine anesthesia, local lidocaine anesthesia. Using a cystostomy tube insertion. The irrigates was all clear. The patient tolerated the procedure without complications. We confirmed the position with a cystogram. this to drainage. Brought the patient to recovery room in stable condition. Norm Hoover MD
--- NOTE | 2018-09-14 06:17 | HP ---
REASON FOR ADMISSION: Insertion of a new cystostomy tube. HISTORY OF PRESENT ILLNESS: The patient is a very pleasant 28-year-old with Down syndrome, whose mother cares for him, who has bilateral hydronephrosis and renal failure, dialysis patient, but he still despite that, does not make urine and he has a Nick catheter and it is causing hypospadia, so based on that, we discussed options with his mother, who is very disturbed by hypospadias. They bring him today for insertion of a suprapubic catheter. I do also want to mention that he has bilateral hydronephrosis, and because of that bilateral hydronephrosis, the patient has double-J stent in left and right kidney. The last time, the stent was got stuck two stents in his kidney, and this will . In general, I did talk to the mother about possibility for adjusting cystostomy tube altogether and removing the double-J stents. We have all been scared to do that should he have any change, but he is already dialysis patient, even if the kidney do not work perfectly. PAST MEDICAL AND SURGICAL HISTORY: All listed on the chart. PHYSICAL EXAMINATION: GENERAL: Well developed, well nourished male, well kempt. Hygiene is notably normal. The Nick catheter is in place. Hypospadias noted, significant, see the pictures. Remainder of the exam is, otherwise, unremarkable. DIAGNOSES: Neurogenic bladder, urinary retention, hydronephrosis, renal failure, gross hematuria, and a hypospadia secondary to the catheter. This is a very pleasant 28-year-old, mother cares for him. He has Down syndrome. He is in a usp. He has multiple medical issues. He is on DVT prophylaxis. He is on Coumadin, he stopped it in preparation for the procedure. We discussed a lot of different options, trying to go as gentle as possible. We are going to do a cystostomy tube. We also discussed the possibility, and I explained that right now he has two double-J stents in because last time it was stuck. So after discussing those options, we are now adjusting today, we are just doing cystostomy tube. I feel this will improve his quality. So towards this end, the plan is as follows. No plans of touching the stents, leaving the patient in supine position. He has stopped his medications. Nick possible and then continue. So the plan is to insert a suprapubic catheter. I explained this to mother. I would rather give cystogram to confirm everything, and then we will discuss the findings to take him out of the Nick catheter by urethra, and then eventually, he needs a ureteroscopy to remove the second double-J stent and all that. This is outlined elsewhere. Today, we will focus on the bladder and emptying of the bladder. We will see how the patient does clinically. Norm Hoover MD
== END 2018-09-13 17:45 | disposition home or self-care (01) ==
LOC: C.SDS 12:08
PROVIDERS: ATTEND Urology
DX: N31.9 Neuromuscular dysfunction of bladder, unspecified (principal); R33.9 Retention of urine, unspecified; N13.30 Unspecified hydronephrosis; R31.0 Gross hematuria; Q90.9 Down syndrome, unspecified; T83.83XA Hemorrhage due to genitourinary prosthetic devices, implants and grafts, initial encounter; Y84.6 Urinary catheterization as the cause of abnormal reaction of the patient, or of later complication, without mention of misadventure at the time of the procedure; Z79.01 Long term (current) use of anticoagulants; Z99.2 Dependence on renal dialysis; N18.6 End stage renal disease
CPT/HCPCS: 36415; 51600; 51705; 80048; J7030

== ENCOUNTER 2018-10-22 13:31 | Day surgery (SDC) | payer OTHER ==
[2018-10-22 14:25] VITALS: BMI 19.5
[2018-10-22 15:17] LABS: CALCIUM 9.1 mg/dl (8.6-10.4)
[2018-10-22 16:12] LABS: BASO # 0.1 K/uL (0.0-0.2); BASO % 1.4 % (0.0-2.0); EOS # 0.1 K/uL (0.0-0.7); EOS % 1.3 % (0.0-4.0); HEMOGLOBIN 11.8 g/dL (12.0-18.0); LYMPH # 1.6 K/uL (1.0-4.3); LYMPH % 23.6 % (20.0-40.0); MEAN CELL VOLUME 95.4 fL (80.0-94.0); MEAN CORPUSCULAR HEMOGLOBIN 31.6 pg (27.0-31.0); MEAN CORPUSCULAR HGB CONC 33.1 g/dL (33.0-37.0); MEAN PLATELET VOLUME 7.5 fL (7.2-11.7); MONO # 0.7 K/uL (0.0-0.8); MONO % 9.7 % (0.0-10.0); NEUT # 4.4 K/uL (1.8-7.0); NRBC % 0.1 % (0.0-2.0); RBC 3.74 Mil/uL (4.40-5.90); WHITE BLOOD COUNT 6.8 K/uL (4.8-10.8)
[2018-10-22] MEDS ORDERED: Midazolam 2 MG/2 ML VIAL ONE ×2 (16:53→17:09)
[2018-10-22] MEDS ORDERED: Propofol 10 mg/ml Inj (20 ML) ONE (17:08)
[2018-10-22 18:32] VITALS: BP 108/55; PULSE 85; RESP 18; TEMP 97.9; O2SAT 99
--- NOTE | 2018-10-27 19:08 | HP ---
REASON FOR ADMISSION: Change of suprapubic catheter. HISTORY OF PRESENT ILLNESS: Mr. Vince Pierce is a pleasant gentleman who has Down syndrome, comes to the office and to the hospital with his mother. Here today because we will try to go from a 12-Eritrean to 16-Eritrean and we are also going to cauterize the abdominal wall. He also has indwelling double-J stent. He has bilateral hydronephrosis. He has renal failure. He actually has a retained stent that is little bit up the ureter. Today, we are not addressing the ureteral stents, we are just changing the suprapubic catheter. This was placed because of retention, placed because he was a dialysis patient, he still makes urine and he has had retention. We are also planning for changing the double-J stent and we are going to cauterize the abdominal wall. PAST MEDICAL AND SURGICAL HISTORY: All listed on the chart. MEDICATIONS: Include Coumadin which he stopped in preparation for today. All that is listed on the chart. REVIEW OF SYSTEMS: As listed above. SOCIAL HISTORY: Lives with mother who is always taking care of him. PHYSICAL EXAMINATION: GENERAL: Well-nourished male, in no apparent distress. VITAL SIGNS: Within normal limits. LUNGS: Clear. HEART: Normal S1 and S2. ABDOMEN: Soft and nontender. No flank mass appreciated. GENITOURINARY: A relatively normal male phallus, he has a little bit of hypospadias that is currently healing. There is a suspected area of the catheter pulling. DIAGNOSES: 1. Bilateral hydronephrosis. 2. Hematuria. 3. Urinary retention. 4. Renal failure. 5. Retained stent, hematuria and abdominal wall persistent growth that is outside the suprapubic region. PLAN: Urology plans today are as follows: We are going to dilate the suprapubic tract, we will go from 12 to 16. We are also going to cauterize the abdominal wall. I am going to make the arrangements shortly for double-J stent change for ureteroscopy, etc. I discussed with the mother the possibility to try to remove it all together the double-J stent and actually changing them. It is difficult to tell in terms of risk etc. Further plan will follow. Today's plans are: 1. Change of suprapubic catheter. 2. Cauterize the skin lesion. Norm Hoover MD [facility] # [id number]
--- NOTE | 2018-10-28 06:14 | OP ---
PROCEDURE DATE: 10/22/2018 PREOPERATIVE DIAGNOSES: Urinary retention, voiding dysfunction, and little granulation eruption next to the suprapubic site. POSTOPERATIVE DIAGNOSES: Urinary retention, voiding dysfunction, and little granulation eruption next to the suprapubic site. PROCEDURES: 1. Removal and insertion of a newer catheter with a dilation of the tract up to 15 Albanian. 2. Cautery of the abdominal wall granulation tissue. COMPLICATIONS: There were no complications. INDICATIONS: See history and physical for further details. This is a pleasant gentleman with Down syndrome. His mother takes care of him. He has renal failure, on dialysis, hydronephrosis, urinary retention. Today, we are dilating tract. We put it in because he was having hypospadias secondary to the Nick and now, we are dilating it even further and also because his granulation tissue was upsetting to the mother and apparently leak sometimes and causes him discomfort. We tried in the office to use the silver nitrate stick but there are many who are treating patient in the office with Coumadin, but we are not going to excise it just yet. We are going to try to cauterized it. DESCRIPTION OF PROCEDURE: After obtaining informed consent, the patient was placed on table. Routine monitors were placed. Time-out was called to confirm the patient and positioning. The old Nick catheter was present, removed the catheter itself and inserted a new catheter. We dilated from 12-[place] the way up to 15-Albanian and it goes in without difficulty. Eventually, we want to get an 18 but . At this point, we also cauterized that granulation tissue. I think I take a picture with that. Keep it dry. We then put a light sterile dressing on. Drain, sponge and bacitracin. The patient tolerated the procedure well without complications. Next plan would be evaluation of the skin, we will change his catheter and then we are going to make arrangements to the middle to October all Thursday, Thursday, Thursday if he comes for his dialysis. We are going to make . Norm Hoover MD [facility] # [id number]
== END 2018-10-22 18:38 | disposition home or self-care (01) ==
LOC: C.SDS 13:31
PROVIDERS: ATTEND Urology
DX: N13.30 Unspecified hydronephrosis (principal); R33.9 Retention of urine, unspecified; Q90.9 Down syndrome, unspecified; Q54.9 Hypospadias, unspecified